=== PATIENT | female | born 1990 | race Caucasian/White ===

== ENCOUNTER 2017-10-16 10:51 | Emergency (ER) | payer OTHER, SELFPAY ==
[2017-10-16 10:52] VITALS: BP 117/71; PULSE 117; RESP 16; TEMP 37.4; O2SAT 98; BMI 21.9
[2017-10-16 11:57] LABS: Mucous, Urine 0 SEEN /hpf (<or=2+)
[2017-10-16] MEDS: 0.9% Normal Saline 1,000 ML 250 ML IV (12:00)
[2017-10-16] MEDS: Ketorolac 30 MG/ML Syringe IV (12:00)
[2017-10-16] MEDS: Ondansetron 4 MG/2 ML Vial IV (12:00)
[2017-10-16 12:01] LABS: Color, Urine Yellow (Yellow); Glucose, Dipstick Normal (Normal); Leukocyte Esterase-Dipstick 500 /ul (Negative); Nitrite-Dipstick Positive (Negative); Occult Blood-Urine 250 /ul (Negative); Protein-Dipstick 30 mg/dl (Negative); Urine Bilirubin Dipstick Negative (Negative); Urine Clarity Cloudy (Clear); Urine Urobilinogen Normal (Normal)
[2017-10-16 12:04] LABS: Ketone-Dipstick 150 mg/dl (Negative)
[2017-10-16 12:06] LABS: Red Blood Cells-Urine 0-5 SEEN /hpf (0-5); Squamous Epithelial Cells - UA 0-5 SEEN /hpf (5-10); White Blood Cells 50-100 SEEN /hpf (0-5)
[2017-10-16 12:07] LABS: Bacteria 2+ /hpf (None Seen)
[2017-10-16 12:17] LABS: Anion Gap 8 (5-15); BUN 7 mg/dL (7-18); BUN/Creat Ratio 11.7 RATIO (10-20); Calcium,Total 8.8 mg/dL (8.5-10.1); Chloride 104 mmol/L (98-107); EST Glomerular Filtration Rate 129 mL/min (>60); Est Glom Filt Rate - Afr Amer 157 mL/min (>60); Estimated Creatinine Clearance 123.77 ml/min; Glucose 80 mg/dL (74-106); Potassium 3.9 mmol/L (3.5-5.1); Sodium Level 139 mmol/L (136-145)
--- NOTE | 2017-10-16 13:19 | CT_ITS ---
STUDY: CT ABDOMEN AND PELVIS WITHOUT CONTRAST REASON FOR EXAM: Female, 27 years old. Right flank pain. UTI. RADIATION DOSAGE (If Supplied By Facility): CTDIvol = ( 6.19 ) mGy, DLP = ( 289.34 ) mGycm TECHNIQUE: Transaxial images were obtained from the dome of the diaphragm to the symphysis pubis without oral contrast, and without intravenous contrast. Sagittal and coronal images were reconstructed. Individualized dose optimization techniques were used for this CT. COMPARISON: Comparison is made with prior study dated December 08, 2015. FINDINGS: The visualized lung bases are unremarkable. The visualized portions of the heart are within normal limits. Normal liver. Normal gallbladder and extrahepatic biliary system. Normal spleen. Normal pancreas. Normal bilateral adrenal glands. There is a 4.5 mm calculus in the lower pole of the right kidney. Stable mild degree of right hydronephrosis and right hydroureter. No obstructive ureteral calculus is seen. This may be due to right ureteral vesicle reflux. Normal left kidney. Normal visualized stomach. Normal small intestine. Normal colon. The appendix is visualized and appears normal. Normal abdominal aorta. Normal inferior vena cava. Normal retroperitoneum. The urinary bladder is distended. Normal abdominal wall. Normal osseous structures. CT/Abdomen/Pelvis without Cont IMPRESSION: Stable mild right hydronephrosis and hydroureter without evidence of obstructive calculus. 4.5 mm nonobstructive calculus in the posterior lower pole of the right kidney. Electronically Signed: Nestor Whitfield MD at 14:20 EST Tel [phone], Service support ,
[2017-10-16 14:21] VITALS: BP 101/62; PULSE 105; RESP 16; O2SAT 95
--- NOTE | 2017-10-16 15:34 | ED.VISSUMM ---
- ER Visit Summary Date of Service: 10/16/17 Chief Complaint: Acute right flank and right lower quadrant abdominal pain with frequency History of Present Illness: The patient is a 27 F who states she had right flank pain on Sunday. She has recurrence of the pain. She denies fever, chills night sweats. She does complain of nausea without vomiting or diarrhea. She does have known history of renal calculi. She denies any ocular, visual auditory symptoms. She denies any cardiorespiratory symptoms. Last menses September 19. She states her menses was normal. She denies headache, paresthesia, anesthesia or motor weakness. She denies polyuria, polydipsia or polyphagia. She denies bruising easily. She denies any allergic type symptoms. Physical Examination: Patient appears uncomfortable. Heart rate is 117 otherwise vital signs are unremarkable. Temperature is 99.4. Head is atraumatic normocephalic. Pupils are equal round reactive. Extraocular muscles are intact. TMs are pearly white with landmarks noted. Nares patent with no drainage. Posterior pharynx without erythema or exudate. Uvula is midline. There is no dysphonia or dysphasia. Trachea is midline. There is no stridor with auscultation of the neck. Heart is regular without murmur, gallop or rub. S1 and S2 are normal. Lungs are clear to auscultation with good movement of air bilaterally. Abdomen minimal tenderness over the right kidney with deep palpation. Equivocal right CVA tenderness. No evidence of umbilical inguinal hernia. There are no skin lesions or rash noted. Neuro exam is nonfocal. Test Results: BMP is unremarkable. Urine is consistent with infection. Because she has history of known calculi has significant pain that is intermittent will obtain a CT to evaluate for obstruction. There is evidence of hydroureter nephrosis which is felt to be secondary to reflux. There is a 4.5 mm renal calculus. There is no obstructing ureteral calculus. Emergency Department Course and Treatment: AP and UA were obtained. Because the UA is positive for infection a CT was obtained. Urine culture was sent and she received Rocephin IV piggyback. Case was discussed Dr. Leong would like to see her in 1 week. He will follow-up culture results. Treatment Plan: Prescription for [place], Zofran, ciprofloxacin and urologic outpatient follow-up Disposition: Discharged in stable improved condition Impression: 1. Acute pyelonephritis, right 2. Right renal calculus 3. Hydroureter and process secondary to reflux This note was generated with [employer] dictation software. It may contain incorrect words, spelling, and punctuation that were not noted in review of the chart prior to signing ED Disposition - Plan for ED Patient: Disposition: Home or Assisted Living Chief Complaint: Flank Pain Instructions: ED Stone Renal Passed, ED Kidney Infec Female Prescriptions: Hydrocodone Bitart/Apap 5-325 [[place] 5MG-325MG] 1 tab PO Q6H PRN PRN 3 Days #10 tab PRN Reason: Pain Ondansetron [Zofran Odt] 8 mg PO Q8H PRN PRN #10 tab PRN Reason: Nausea/Vomiting Ciprofloxacin HCl 500 mg PO BID #20 tab Referrals: Andres Crockett [Primary Care Provider] - Hussain Wilson MD [STAFF PHYSICIAN] - 1 Week
--- NOTE | 2017-10-16 15:44 | ED.DCSUM_ITS ---
- ER Visit Summary Date of Service: 10/16/17 Chief Complaint: Acute right flank and right lower quadrant abdominal pain with frequency History of Present Illness: The patient is a 27 F who states she had right flank pain on Sunday. She has recurrence of the pain. She denies fever, chills night sweats. She does complain of nausea without vomiting or diarrhea. She does have known history of renal calculi. She denies any ocular, visual auditory symptoms. She denies any cardiorespiratory symptoms. Last menses September 19. She states her menses was normal. She denies headache, paresthesia , anesthesia or motor weakness. She denies polyuria, polydipsia or polyphagia. She denies bruising easily. She denies any allergic type symptoms. Physical Examination: Patient appears uncomfortable. Heart rate is 117 otherwise vital signs are unremarkable. Temperature is 99.4. Head is atraumatic normocephalic. Pupils are equal round reactive. Extraocular muscles are intact. TMs are pearly white with landmarks noted. Nares patent with no drainage. Posterior pharynx without erythema or exudate. Uvula is midline. There is no dysphonia or dysphasia. Trachea is midline. There is no stridor with auscultation of the neck. Heart is regular without murmur, gallop or rub. S1 and S2 are normal. Lungs are clear to auscultation with good movement of air bilaterally. Abdomen minimal tenderness over the right kidney with deep palpation. Equivocal right CVA tenderness. No evidence of umbilical inguinal hernia. There are no skin lesions or rash noted. Neuro exam is nonfocal. Test Results: BMP is unremarkable. Urine is consistent with infection. Because she has history of known calculi has significant pain that is intermittent will obtain a CT to evaluate for obstruction. There is evidence of hydroureter nephrosis which is felt to be secondary to reflux. There is a 4.5 mm renal calculus. There is no obstructing ureteral calculus. Emergency Department Course and Treatment: AP and UA were obtained. Because the UA is positive for infection a CT was obtained. Urine culture was sent and she received Rocephin IV piggyback. Case was discussed Dr. Leong would like to see her in 1 week. He will follow-up culture results. Treatment Plan: Prescription for [place], Zofran, ciprofloxacin and urologic outpatient follow-up Disposition: Discharged in stable improved condition Impression: 1. Acute pyelonephritis, right 2. Right renal calculus 3. Hydroureter and process secondary to reflux This note was generated with [employer] dictation software. It may contain incorrect words, spelling, and punctuation that were not noted in review of the chart prior to signing ED Disposition - Plan for ED Patient: Disposition: Home or Assisted Living Chief Complaint: Flank Pain Instructions: ED Stone Renal Passed, ED Kidney Infec Female Prescriptions: Hydrocodone Bitart/Apap 5-325 [[place] 5MG-325MG] 1 tab PO Q6H PRN PRN 3 Days #10 tab PRN Reason: Pain Ondansetron [Zofran Odt] 8 mg PO Q8H PRN PRN #10 tab PRN Reason: Nausea/Vomiting Ciprofloxacin HCl 500 mg PO BID #20 tab Referrals: Andres Crockett [Primary Care Provider] - Hussain Wilson MD [STAFF PHYSICIAN] - 1 Week
[2017-10-16 16:05] VITALS: BP 110/75; PULSE 112; RESP 18; O2SAT 100
[2017-10-16 16:11] VITALS: BP 105/68; PULSE 112; RESP 16; O2SAT 100
== END 2017-10-16 16:39 | disposition home or self-care (01) ==
PROVIDERS: Emergency Provider Emergency Medicine; Family Provider Family Medicine; PCP Family Medicine
DX: N10 Acute pyelonephritis (principal); N20.0 Calculus of kidney; N13.4 Hydroureter; K21.9 Gastro-esophageal reflux disease without esophagitis; Z87.442 Personal history of urinary calculi
CPT/HCPCS: 74176; 80048; 81001; 87077; 87086; 87088; 87186; 96365; 96374; 96375; 96376; 99283; J7030; A4216; J2405

== ENCOUNTER 2017-10-24 08:48 | Day surgery (SDC) | payer OTHER, SELFPAY ==
--- NOTE | 2017-10-24 | GASB_PTH ---
PATIENT: SOPHY MIJARES LOC: EN U#:[id number] AGE/SX: 27/F ROOM: RE10/24/[address]: Dr. Emmy Green MD : 1990 BED: DIS: 10/24/2017 SPEC #: [id number] RECD: 10/24/17 14:26 STATUS: ROSELYN RICHARD #: [id number] CRISTOFER: 10/24/17 00:[address]: Emmy Green DEPT: SURGICAL PATHOLOGY RECD BY: Lex Bangura ENTERED: 10/24/17 14:27 SP TYPE: Gastric Bx OTHR DR: Dr. Andres Crockett DO Tissues: A - Gastric mucous membrane B - Descending colon C - Sigmoid colon biopsy D - Rectum, NOS E - Rectum, NOS Procedures: Surgery Specimen Level IV HEADER OPERATION: EGD with biopsy, colonoscopy with biopsy and polypectomy PRE-OP DIAGNOSIS: Tarry stools and diarrhea TISSUE SUBMITTED: A ? Antrum biopsy, H. pylori and path, B ? Descending colon biopsy, C ? Sigmoid biopsy, D ? Rectum polyp, E ? Rectum biopsies MICROSCOPIC DIAGNOSIS A. Antrum, biopsy: Mild gastritis. B. Descending colon, biopsy: Fragment of colonic mucosa, no pathologic diagnosis. C. Sigmoid, biopsy: Fragments of colonic mucosa, no pathologic diagnosis. D. Rectum polyp, polypectomy: Tubular adenoma. E. Rectum, biopsy: Hyperplastic polyp (one fragment). Additional fragments of colonic mucosa, no pathologic diagnosis. SJ:hetal 10/25/17 COMMENT A. The results of immunohistochemistry for Helicobacter pylori will be reported separately ([id number]). MICROSCOPIC DESCRIPTION Slides are reviewed. A. The specimen shows fragments of gastric mucosa with chronic inflammatory cell infiltrates in the lamina propria consisting of lymphocytes and plasma cells, consistent with mild chronic gastritis. GROSS DESCRIPTION A - Received in fixative is one container labeled with the patient's name and designated antral biopsy, H. pylori and path. The specimen consists of one irregular fragment of light chun soft tissue that measures 0.3 x 0.3 x 0.1 cm. The specimen is totally submitted in one cassette. B - Received in fixative is one container labeled with the patient's name and designated descending colon biopsy. The specimen consists of one irregular fragment of light chun soft tissue that measures 0.5 x 0.3 x 0.1 cm. The specimen is totally submitted in one cassette. C - Received in fixative is one container labeled with the patient's name and designated sigmoid biopsy. The specimen consists of multiple irregular fragments of light chun soft tissue that in aggregate measure 1 x 0.3 x 0.1 cm. The specimen is totally submitted in one cassette. D - Received in fixative is one container labeled with the patient's name and designated rectum polyp biopsy. The specimen consists of a piece of chun-pink polyp measuring 1 x 1 x 0.4 cm. The entire specimen is submitted in one cassette. E - Received in fixative is one container labeled with the patient's name and designated rectum biopsy. The specimen consists of multiple irregular fragments of light chun soft tissue that in aggregate measure 1 x 0.5 x 0.1 cm. The specimen is totally submitted in one cassette. / GREY:hetal 10/23/17 TC:1 CPT: 55035 x5
--- NOTE | 2017-10-24 | IMM_PTH ---
PATIENT: SOPHY MIJARES LOC: EN U#:[id number] AGE/SX: 27/F ROOM: RE10/24/[address]: Dr. Emmy Green MD : 1990 BED: DIS: 10/24/2017 SPEC #: [id number] RECD: 10/25/17 11:24 STATUS: ROSELYN REKiesha #: [id number] CRISTOFER: 10/24/17 00:[address]: Emmy Green DEPT: IMMUNOHISTOCHEMISTRY RECD BY: Romy Christianson ENTERED: 10/25/17 11:25 SP TYPE: IMMUNO OTHR DR: Dr. Andres Crockett DO Tissues: A - Stomach, NOS Procedures: H Pylori (initial) PHYSICIAN & INSTITUTION [place] [address] SPECIMEN INFORMATION: Tissue Source: A ? Antrum biopsy Clinical Info: Tarry stools and diarrhea Specimen Number: [id number] CPT code: 65618 METHODOLOGY: Deparaffinized sections of prefer/formalin-fixed tissue or PAP/DQ stained slides are incubated with monoclonal/polyclonal antibodies/oligonucleotide probes. Localization is made via biotin free immunoperoxidase method. Appropriate controls are performed and reacted as expected. Results on target cell population are indicated in the following table: RESULTS: ANTIBODY / CLONE RESULT Block A H Pylori (polyclonal) negative These tests were developed and their performance characteristics determined by [facility]. They may not have been cleared or approved by the [place]. Food and Drug Administration. The FDA has determined that such clearance or approval is not necessary. INTERPRETATION: A. Antrum biopsy: Negative for Helicobacter pylori organisms. SJ:hetal 10/26/17
[2017-10-24 09:03] VITALS: BP 106/75; PULSE 80; RESP 16; TEMP 36.8; O2SAT 100; BMI 21.5
[2017-10-24 09:22] LABS: Internal QC Validated? YES +Cl - CLEAR BKGD; Pregnancy, Urine Negative Negative
[2017-10-24 10:54] VITALS: BP 106/75; BP 94/61; PULSE 87; RESP 16; TEMP 36.2; O2SAT 100
[2017-10-24 11:00] VITALS: BP 106/75; BP 90/63; PULSE 83; RESP 16; O2SAT 100
[2017-10-24 11:05] VITALS: BP 106/75; BP 94/74; PULSE 76; RESP 16; O2SAT 100
[2017-10-24 11:10] VITALS: BP 106/75; BP 99/77; PULSE 68; RESP 16; TEMP 36.2; O2SAT 100
[2017-10-24 11:48] VITALS: BP 106/75
--- NOTE | 2017-10-24 11:53 | OP.PCM_ITS ---
Report of Operation Date of Procedure: 10/24/17 Pre-Operative Diagnosis: Tarry stools, upper abdominal pain, diarrhea Post-Operative Diagnosis: Rectal polyp, diarrhea, normal stomach Surgery/Procedure Performed:: EGD with biopsy, colonoscopy with saline lift and snare polypectomy Type of Anesthesia:: MAC Anesthesiologist: Jorge Leong Specimen's removed: 1. Antral biopsy 2. Descending colon random biopsy, 3. Sigmoid colon Random biopsy, 4. Rectal polyp, 5. Rectal random biopsy Estimated Blood Loss (mL): Minimal Description of Procedure: Procedure: EGD with biopsy After obtaining informed consent, the endoscope was passed under direct visualization. Throughout the procedure, patient's blood pressure, pulse, oxygen saturations were monitored continuously by anesthesia. The endoscope was introduced through the mouth and advanced to the 2nd part of the duodenum. The upper GI endoscopy was accomplished without difficulty. Patient tolerated procedure well. Findings: Stomach appeared grossly normal gastric antrum biopsy was taken for H. pylori with cold forceps cold forceps. Biopsies were taken with cold biopsy for histology. Estimated blood loss was minimal. The duodenum was normal. Impression: 1. Grossly normal stomach. Biopsied for H. pylori 2. Normal examined duodenum Recommendations: Await biopsy Procedure: Colonoscopy with saline lift and snare polypectomy After reviewing the risks benefits, the patient was deemed in satisfactory condition to undergo procedure. After obtaining informed consent, the scope was passed under direct visualization. Throughout the procedure, the patient's blood pressure pulse and position saturations were monitored continuously anesthesia. The colonoscope was introduced through the anus and advanced to the cecum, identified by the appendiceal orifice, IC valve and transillumination. The colonoscopy was performed without difficulty. The patient tolerated procedure well. Quality of bowel prep was good. Findings: The perianal and digital rectal exam were relatively small residual tissue at 12 :00 and some small internal hemorrhoids. Random biopsies were taken of the descending/sigmoid/rectum due to the history of chronic diarrhea. Rectal polyp was seen about 10 cm from the anus saline left was done with 1 cc of saline and 2 locations near the base. Snare polypectomy removed the polyp completely. Otherwise the colon (entire examined portion) appeared normal. Retroflexed view of the distal rectum and anal verge showed small internal hemorrhoids Impression: 1. Rectal polyp removed with snare polypectomy 2. Grade 1 internal hemorrhoids 3. Random biopsies taken for history of diarrhea Recommendations: Await biopsies Repeat colonoscopy in 2-3 years for screening purposes depending on biopsy results - Complications none
== END 2017-10-24 11:49 | disposition home or self-care (01) ==
LOC: EN 08:49 → AC 08:51
PROVIDERS: Anesthesiology; Family Provider Family Medicine; PCP Family Medicine; Visit Provider Surgery
PROC: 0DJD8ZZ Inspection of Lower Intestinal Tract, Via Natural or Artificial Opening Endoscopic (ICD-10-PCS; CPT 45378; principal; 2017-10-24 09:55)
DX: K29.70 Gastritis, unspecified, without bleeding (principal); D12.8 Benign neoplasm of rectum; K62.1 Rectal polyp; K64.8 Other hemorrhoids; I49.9 Cardiac arrhythmia, unspecified; G43.909 Migraine, unspecified, not intractable, without status migrainosus; M62.830 Muscle spasm of back; K58.9 Irritable bowel syndrome, unspecified; F41.9 Anxiety disorder, unspecified; F32.9 Major depressive disorder, single episode, unspecified; Z87.448 Personal history of other diseases of urinary system; Z79.899 Other long term (current) drug therapy
CPT/HCPCS: 43239; 45380; 45385; 81025; 88305; 88342; J7120; A4216

== ENCOUNTER → 2017-11-05 14:53 | Outpatient (CLI) | payer OTHER, SELFPAY ==
--- NOTE | 2017-11-05 14:56 | RAD_ITS ---
STUDY: VOIDING CYSTOURETHROGRAM REASON FOR EXAM: Female, 27 years old. UTIs FLUOROSCOPY TIME (if supplied): (3) minutes, 2 fluoroscopic images obtained TECHNIQUE: Patient was catheterized and Cysto-Conray contrast instilled into the bladder via gravity. COMPARISON: None. FINDINGS: The bladder distended normally without evidence of filling defect. There was no reflux of contrast into the distal ureters upon bladder filling. However, patient was unable to void on the fluoroscopic table. She voided in the commode, and return in rapid fashion to the fluoroscopic table for post void fluoroscopy and imaging. There was complete emptying of the bladder and there was no evidence of reflux of contrast into the ureters. RAD/Voiding Urethrocystography IMPRESSION: No abnormal findings noted. Electronically Signed: Miko Posada MD at 8:06 EDT , Service support ,
== END ==
PROVIDERS: Family Provider Family Medicine; PCP Family Medicine; Visit Provider Nurse Practitioner Adult Health
DX: N13.30 Unspecified hydronephrosis (principal)
CPT/HCPCS: 51600; 51702; 74430; 74455; Q9965

== ENCOUNTER → 2018-09-02 16:22 | Outpatient (CLI) | payer OTHER, SELFPAY ==
--- NOTE | 2018-09-02 16:37 | US_ITS ---
HISTORY: HYDRONEPHROSIS renal calculi TECHNIQUE: Peterson scale and color doppler sagittal and transverse images were obtained of the kidneys. COMPARISON: CT abdomen and pelvis 10/16/2017 FINDINGS: Both kidneys are normal in size with measurements approximately as follows: Right kidney: 10 x 4.7 x 3.9 cm Left kidney 9.4 x 4.2 x 3.9 cm The right kidney shows a 3 mm echogenic stone at the upper pole and a 4 mm stone at the lower pole. No obvious calculi at the left kidney. No hydronephrosis or suspicious renal lesion. Renal cortical thickness is preserved. No ascites. Limited survey of the pelvis was performed with attention to urinary bladder. Estimated bladder volume is 81 cc. The bladder shows no mural thickening or intraluminal stone. No free pelvic fluid. US/Kidney and Bladder IMPRESSION: 1. Right renal small nonobstructing stones 2. 2. No hydronephrosis identified. 3. Normal urinary bladder. at 0114 Reported and signed by: Joey Drake MD Electronically Signed: Joey Drake, at 1:13 EST Tel , Service support ,
--- OUTSIDE RECORDS SUMMARY | 2018-11-05 04:18 | XMS RPT_ITS ---
:1990 Author Organization OHIP Care Team Providers Name Role Phone JOSI HUGO (COMMERCIAL RELATIONSHIP MANAGER) Attending Unavailable Yojana Ferrell Attending Unavailable GhassanDeweyca M Referring Unavailable PETRILLA, MINERVA Primary Care Unavailable Robotham, Emmy Attending Unavailable PETRILLA, MINERVA Referring Unavailable PETRILLA, MINERVA Primary Care Unavailable Rodrigue Pineda Attending Unavailable PETRILLA, MINERVA Referring Unavailable PETRILLA, MINERVA Primary Care Unavailable PETRILLA, MINERVA Primary Care Unavailable Cardenas, Jm Attending Unavailable Robotham, Emmy Attending Unavailable Robotham, Emmy Referring Unavailable PETRILLA, MINERVA Primary Care Unavailable Robotham, Emmy Attending Unavailable Robotham, Emmy Referring Unavailable PETRILLA, MINERVA Primary Care Unavailable Robotham, Emmy Consulting Unavailable GhassanDolores guzmanecca M Attending Unavailable Ghassan, Yojana M Referring Unavailable PETRILLA, MINERVA Primary Care Unavailable PROBLEMS PROBLEMS DATE TYPE CONDITION / CODE ATTENDING STATUS SOURCE 11/05/2017 Unknown N13.30 - Unspecified Yojana Ferrell Active [facility] hydronephrosis / [facility] N13.30(ICD-10) Hospital Repository 10/16/2017 Unknown N10 - Acute Cardenas, Jm Active [place] pyelonephritis / Community N10(ICD-10) Hospital Repository 10/16/2017 Unknown N20.0 - Calculus of Cardenas, Jm Active [facility] kidney / [facility] N20.0(ICD-10) Hospital Repository 09/26/2017 Unknown K92.1 - Melena / Robotham, Active [facility] K92.1(ICD-10) Emmy Counts Include [facility] B[facility] At [facility] Hospital Repository 09/26/2017 Unknown R19.7 - Diarrhea, Robotham, Active [place] unspecified / Emmy Community R19.7(ICD-10) Hospital Repository 09/21/2017 Active Unknown / JOSI HUGO Active [facility]ang UNK(Unknown) (COMMERCIAL RELATIONSHIP MANAGER) Clinic [facility] [place] Repository PROCEDURES PROCEDURES No Procedure Records FoundRESULTS RESULTS KIDNEY AND BLADDER Observed: 09/02/2018 Status: F Source: [place] 4:38 PM [facility] HOSPITAL REPOSITORY [facility] Imaging Services [address] [place] [address] Kidney and Bladder MR#: [id number] Acct: [id number] Name: KELLIE MIJARES Rep #: [id number] : 1990 F 28 From: Joey Drake MD PCP: Minerva Crockett DO Status: REG CLI Study: Kidney and Bladder Date of Exam: 09/02/18 Exam# [id number] Ordering Dr: Yojana Ferrell SYSTEMS LEAD-C HISTORY: HYDRONEPHROSIS renal calculi TECHNIQUE: Peterson scale and color doppler sagittal and transverse images were obtained of the kidneys. COMPARISON: CT abdomen and pelvis 10/16/2017 FINDINGS: Both kidneys are normal in size with measurements approximately as follows: Right kidney: 10 x 4.7 x 3.9 cm Left kidney 9.4 x 4.2 x 3.9 cm The right kidney shows a 3 mm echogenic stone at the upper pole and a 4 mm stone at the lower pole. No obvious calculi at the left kidney. No hydronephrosis or suspicious renal lesion. Renal cortical thickness is preserved. No ascites. Limited survey of the pelvis was performed with attention to urinary bladder. Estimated bladder volume is 81 cc. The bladder shows no mural thickening or intraluminal stone. No free pelvic fluid. US/Kidney and Bladder IMPRESSION: 1. Right renal small nonobstructing stones 2. 2. No hydronephrosis identified. 3. Normal urinary bladder. at 0114 Reported and signed by: Joey Drake MD Electronically Signed: Joey Drake, at 1:13 EST Tel , Service support , CC: Minerva Crockett DO; Yojana Ferrell NP Gambling Floor Supervisor: Signed Observed: 11/19/2017 Status: F Source: [place] URINE CULTURE 7:29 PM [facility] REPOSITORY Sp. Request/Comment: - Specimen received in preservative Culture Result - 10,000 - <50,000 CFU/ml Lactose negative gram negative bacilli --> ABNORMAL ALERT Insignificant colony count. No further workup. --> ABNORMAL ALERT <10,000 CFU/ml Normal urogenital jayashree Performed By: #### URCUL #### [facility] [address] [place], [place] [address] PROGRESS Observed: 11/18/2017 Status: COMPLETED Source: [place] 4:09 PM [facility] REPOSITORY HNO ID: [id number] Author: Solo Grider (Manager [employer]) Goucher Service: (none) Author Type: Nurse Practitioner Type: Progress Notes Filed: 11/18/2017 4:30 PM Note Text: Subjective HPI HPI Kellie Arroyo is a 27 year old female who presents today for CC of dysuria, frequency, nocturia This started 3 days ago she has tried increasing her fluids. She reports known kidney stones There is no problem list on file for this patient. BP 111/81 Pulse 106 Temp 37 ?C (98.6 ?F) (Tympanic) Resp 16 Wt 57.9 kg (127 lb 9.6 oz) LMP 10/25/2017 (Approximate) BMI 21.56 kg/m2 ALLERGIES Allergen Reactions - Wellbutrin [Bupropi* Other: See Comments seizure Current Outpatient Prescriptions: imipramine HCl (TOFRANIL) 50 mg tablet Take 50 mg by mouth daily at bedtime. Disp: Rfl: ibuprofen (MOTRIN) 800 mg tablet Take 1 tablet by mouth three times daily as needed for Pain. Start 2 days before period and take for 5 days total. TAKE WITH FOOD. Disp: 30 tablet Rfl: 6 fluconazole (DIFLUCAN) 150 mg tablet Take one pill today, Sunday, and . Disp: 3 tablet Rfl: 0 No current facility-administered medications for this visit. Review of Systems Constitutional: Negative for chills, diaphoresis, fever and malaise/fatigue. Gastrointestinal: Negative for abdominal pain, diarrhea, nausea and vomiting. Genitourinary: Positive for dysuria, frequency and urgency. Negative for flank pain and hematuria. Musculoskeletal: Negative for joint pain and myalgias. Neurological: Negative for weakness. Objective Physical Exam Constitutional: She is oriented to person, place, and time and well-developed, well-nourished, and in no distress. HENT: Head: Normocephalic and atraumatic. Eyes: Conjunctivae and EOM are normal. Pupils are equal, round, and reactive to light. Neck: Normal range of motion. Neck supple. Cardiovascular: Normal rate, regular rhythm and normal heart sounds. Pulmonary/Chest: Effort normal and breath sounds normal. No respiratory distress. Abdominal: Soft. Normal appearance and bowel sounds are normal. There is tenderness in the suprapubic area. There is CVA tenderness (right). Neurological: She is alert and oriented to person, place, and time. Gait normal. Skin: Skin is warm and dry. Psychiatric: Affect normal. Nursing note and vitals reviewed. ASSESSMENT/PLAN: 1. Dysuria - ICD9: 788.1, ICD10: R30.0 (primary diagnosis) acute - UA positive for cydney esterase and hematuria - Patient education for prevention given - UA DIP B/O - URINE CULTURE 2. Acute cystitis with hematuria - ICD9: 595.0, ICD10: N30.01 - URINE CULTURE, we will call you in 3 days with your results - increase your water intake, limit caffeine and alcohol, they are irritating to the bladder - f/u with PCP if symptoms should persist - SULFAMETHOXAZOLE 800 MG-TRIMETHOPRIM 160 MG TABLET Solo Flowers APRN.CNP CNOV Observed: 11/18/2017 Status: COMPLETED Source: [place] 4:00 PM [facility] REPOSITORY Office Visit ([facility]ALK[facility]) KELLIE ARROYO ([id number]) 1990 F Date Time Provider Department 11/18/17 4:00 PM SOLO FLOWERS (TEZ) [facility] During your visit today, we recorded the following information about you: Temperature Pulse Respiration Blood pressure 98.6 degrees 106/minute 16/minute 111/81 Weight Last Period 57.9 kg 10/25/17 Solo Flowers APRN.CNP 11/18/2017 4:30 PM Signed Subjective HPI HPI Kellie Arroyo is a 27 year old female who presents today for CC of dysuria, frequency, nocturia This started 3 days ago she has tried increasing her fluids. She reports known kidney stones There is no problem list on file for this patient. BP 111/81 Pulse 106 Temp 37 ?C (98.6 ?F) (Tympanic) Resp 16 Wt 57.9 kg (127 lb 9.6 oz) LMP 10/25/2017 (Approximate) BMI 21.56 kg/m2 ALLERGIES Allergen Reactions - Wellbutrin [Bupropi* Other: See Comments seizure Current Outpatient Prescriptions: imipramine HCl (TOFRANIL) 50 mg tablet Take 50 mg by mouth daily at bedtime. Disp: Rfl: ibuprofen (MOTRIN) 800 mg tablet Take 1 tablet by mouth three times daily as needed for Pain. Start 2 days before period and take for 5 days total. TAKE WITH FOOD. Disp: 30 tablet Rfl: 6 fluconazole (DIFLUCAN) 150 mg tablet Take one pill today, Sunday, and . Disp: 3 tablet Rfl: 0 No current facility-administered medications for this visit. Review of Systems Constitutional: Negative for chills, diaphoresis, fever and malaise/fatigue. Gastrointestinal: Negative for abdominal pain, diarrhea, nausea and vomiting. Genitourinary: Positive for dysuria, frequency and urgency. Negative for flank pain and hematuria. Musculoskeletal: Negative for joint pain and myalgias. Neurological: Negative for weakness. Objective Physical Exam Constitutional: She is oriented to person, place, and time and well-developed, well-nourished, and in no distress. HENT: Head: Normocephalic and atraumatic. Eyes: Conjunctivae and EOM are normal. Pupils are equal, round, and reactive to light. Neck: Normal range of motion. Neck supple. Cardiovascular: Normal rate, regular rhythm and normal heart sounds. Pulmonary/Chest: Effort normal and breath sounds normal. No respiratory distress. Abdominal: Soft. Normal appearance and bowel sounds are normal. There is tenderness in the suprapubic area. There is CVA tenderness (right). Neurological: She is alert and oriented to person, place, and time. Gait normal. Skin: Skin is warm and dry. Psychiatric: Affect normal. Nursing note and vitals reviewed. ASSESSMENT/PLAN: 1. Dysuria - ICD9: 788.1, ICD10: R30.0 (primary diagnosis) acute - UA positive for cydney esterase and hematuria - Patient education for prevention given - UA DIP B/O - URINE CULTURE 2. Acute cystitis with hematuria - ICD9: 595.0, ICD10: N30.01 - URINE CULTURE, we will call you in 3 days with your results - increase your water intake, limit caffeine and alcohol, they are irritating to the bladder - f/u with PCP if symptoms should persist - SULFAMETHOXAZOLE 800 MG-TRIMETHOPRIM 160 MG TABLET MEENA Lau APRN.CNP 11/18/2017 4:28 PM Signed ASSESSMENT/PLAN: 1. Dysuria - ICD9: 788.1, ICD10: R30.0 (primary diagnosis) acute - UA positive for cydney esterase and hematuria - Patient education for prevention given - UA DIP B/O - URINE CULTURE 2. Acute cystitis with hematuria - ICD9: 595.0, ICD10: N30.01 - URINE CULTURE, we will call you in 3 days with your results - increase your water intake, limit caffeine and alcohol, they are irritating to the bladder - f/u with PCP if symptoms should persist - SULFAMETHOXAZOLE 800 MG-TRIMETHOPRIM 160 MG TABLET Referring Provider: SELF [200] Allergies As of Date: 11/18/2017 Noted Allergy Reaction WELLBUTRIN (BUPROPION HCL) 09/21/2017 14 - Other: See Comments Comments: seizure Date Reviewed: 11/18/2017 Reviewed by: Maria Teresa Muro Ma - Fully Assessed Reason for Visit: UTI [116] Cmt: x3 days Primary Visit Diagnosis:Dysuria [R30.0] Other Visit Diagnosis:Acute cystitis with hematuria [N30.01] Order(s):UA DIP B/O [3642431] Order #: [id number] URINE CULTURE [SQURCUL] Order #: [id number] sulfamethoxazole-trimethoprim (BACTRIM DS) 800-160 mg per tabletTake 1 tablet by mouth twice daily for 7 days.Disp: 14 tabletRfl: 0 ibuprofen (MOTRIN) 800 mg tabletTake 1 tablet by mouth every 8 hours as needed for Pain.Disp: 30 tabletRfl: 0 Prescriptions as of 11/18/2017 Sig: IMIPRAMINE 50 MG TABLET Take 50 mg by mouth daily at * SULFAMETHOXAZOLE 800 MG-TRIME* Take 1 tablet by mouth twice * IBUPROFEN 800 MG TABLET Take 1 tablet by mouth every * FLUCONAZOLE 150 MG TABLET Take one pill today, Sunday, * Medication notes this encounter FLUCONAZOLE 150 MG TABLET >> Maria Teresa Muro Ma 11/18/2017 4:07 PM >> MARIA TERESA MURO MA Nov 18, 2017 4:07 PM completed Problem List As Of Date: 11/18/2017 (None) Other instructions from your clinician: ASSESSMENT/PLAN: 1. Dysuria - ICD9: 788.1, ICD10: R30.0 (primary diagnosis) acute - UA positive for cydney esterase and hematuria - Patient education for prevention given - UA DIP B/O - URINE CULTURE 2. Acute cystitis with hematuria - ICD9: 595.0, ICD10: N30.01 - URINE CULTURE, we will call you in 3 days with your results - increase your water intake, limit caffeine and alcohol, they are irritating to the bladder - f/u with PCP if symptoms should persist - SULFAMETHOXAZOLE 800 MG-TRIMETHOPRIM 160 MG TABLET Prescriptions ordered this encounter Disp Refills Start End SULFAMETHOXAZOLE 800 MG-TRIMETHOPRIM* 14 t* 0 11/18/2017 11/25/2017 Route: ORAL Sig: Take 1 tablet by mouth twice daily for 7 days. IBUPROFEN 800 MG TABLET 30 t* 0 11/18/2017 12/18/2017 Route: ORAL Sig: Take 1 tablet by mouth every 8 hours as needed for Pain. Medications Discontinued During This Encounter ibuprofen (MOTRIN) 800 mg tablet 30 t* 6 07/23/2013 11/18/2017 Route: ORAL Sig: Take 1 tablet by mouth three times daily as needed for Pain. Start 2 days before period and take for 5 days total. TAKE WITH FOOD. Disc: Course of therapy completed Encounter Status:Closed by SOLO FLOWERS on 11/18/17 VOIDING URETHROCYSTOGRAPHY Observed: 11/05/2017 Status: F Source: [place] 2:56 PM [facility] REPOSITORY [facility] Imaging Services [address] [place] [address] Voiding Urethrocystography MR#: [id number] Acct: [id number] Name: KELLIE ARROYO Rep #: [id number] : 1990 F 27 From: Colton Posada MD PCP: MINERVA CROCKETT Status: REG CLI Study: Voiding Urethrocystography Date of Exam: 11/05/17 Exam# [id number] Ordering Dr: Yojana Ferrell SYSTEMS LEAD-C STUDY: VOIDING CYSTOURETHROGRAM REASON FOR EXAM: Female, 27 years old. UTIs FLUOROSCOPY TIME (if supplied): (3) minutes, 2 fluoroscopic images obtained TECHNIQUE: Patient was catheterized and Cysto-Conray contrast instilled into the bladder via gravity. COMPARISON: None. FINDINGS: The bladder distended normally without evidence of filling defect. There was no reflux of contrast into the distal ureters upon bladder filling. However, patient was unable to void on the fluoroscopic table. She voided in the commode, and return in rapid fashion to the fluoroscopic table for post void fluoroscopy and imaging. There was complete emptying of the bladder and there was no evidence of reflux of contrast into the ureters. RAD/Voiding Urethrocystography IMPRESSION: No abnormal findings noted. Electronically Signed: Miko Posada MD at 8:06 EDT , Service support , CC: MINERVA CROCKETT; Yojana Ferrell NP Gambling Floor Supervisor: Signed OPERATIVE REPORT Observed: 10/24/2017 Status: F Source: [place] 11:53 AM [facility] REPOSITORY [facility] Medical Records Department [address] [place] [address] Operative Report 10/24/17 1147 MR#: [id number] Acct: [id number] Name: KELLIE ARROYO Rep #: [id number] : 1990 27 From: Emmy Green MD PCP: MINERVA CROCKETT Status: [facility] Y Location: EN Report of Operation Date of Procedure: 10/24/17 Pre-Operative Diagnosis: Tarry stools, upper abdominal pain, diarrhea Post-Operative Diagnosis: Rectal polyp, diarrhea, normal stomach Surgery/Procedure Performed:: EGD with biopsy, colonoscopy with saline lift and snare polypectomy Type of Anesthesia:: MAC Anesthesiologist: Jorge Leong Specimen's removed: 1. Antral biopsy 2. Descending colon random biopsy, 3. Sigmoid colon Random biopsy, 4. Rectal polyp, 5. Rectal random biopsy Estimated Blood Loss (mL): Minimal Description of Procedure: Procedure: EGD with biopsy After obtaining informed consent, the endoscope was passed under direct visualization. Throughout the procedure, patient's blood pressure, pulse, oxygen saturations were monitored continuously by anesthesia. The endoscope was introduced through the mouth and advanced to the 2nd part of the duodenum. The upper GI endoscopy was accomplished without difficulty. Patient tolerated procedure well. Findings: Stomach appeared grossly normal gastric antrum biopsy was taken for H. pylori with cold forceps cold forceps. Biopsies were taken with cold biopsy for histology. Estimated blood loss was minimal. The duodenum was normal. Impression: 1. Grossly normal stomach. Biopsied for H. pylori 2. Normal examined duodenum Recommendations: Await biopsy Procedure: Colonoscopy with saline lift and snare polypectomy After reviewing the risks benefits, the patient was deemed in satisfactory condition to undergo procedure. After obtaining informed consent, the scope was passed under direct visualization. Throughout the procedure, the patient's blood pressure pulse and position saturations were monitored continuously anesthesia. The colonoscope was introduced through the anus and advanced to the cecum, identified by the appendiceal orifice, IC valve and transillumination. The colonoscopy was performed without difficulty. The patient tolerated procedure well. Quality of bowel prep was good. Findings: The perianal and digital rectal exam were relatively small residual tissue at 12:00 and some small internal hemorrhoids. Random biopsies were taken of the descending/sigmoid/rectum due to the history of chronic diarrhea. Rectal polyp was seen about 10 cm from the anus saline left was done with 1 cc of saline and 2 locations near the base. Snare polypectomy removed the polyp completely. Otherwise the colon (entire examined portion) appeared normal. Retroflexed view of the distal rectum and anal verge showed small internal hemorrhoids Impression: 1. Rectal polyp removed with snare polypectomy 2. Grade 1 internal hemorrhoids 3. Random biopsies taken for history of diarrhea Recommendations: Await biopsies Repeat colonoscopy in 2-3 years for screening purposes depending on biopsy results - Complications none 10/24/17 1153 <Electronically signed by Emmy Green MD> Date Emmy Green MD CC: MINERVA CROCKETT; Emmy Green MD Signed ,URINE Collected: 10/24/2017 Status: F Source: [place] 8:55 AM [facility] REPOSITORY TYPE CODE TESTS RESULT OUT OF REFERENCE UNITS RANGE LAB L400.8000 Negative Normal HCGUQUAL Negative Result Comment: Very dilute urine specimens, as indicated by a low specific gravity, may not contain telesales representative levels of hCG. If is still suspected, a first morning urine specimen should be collected 48 hours later and tested. Performed By: #### [id number] #### [facility] [address] [place], [address] GASTRIC BIOPSY Observed: 10/24/2017 Status: F Source: [place] 12:00 AM [facility] REPOSITORY Patient: KELLIE ARROYO : 1990 (27/) Acct Num: [id number] Phys: Peter PARRISH,Emmy Unit Num: [id number] Loc: EN Specimen: [id number] Received: 10/24/171425 Spec Type: Gastric Bx TISSUES TISSUES: A. Gastric mucous membrane B. Descending colon C. Sigmoid colon biopsy D. Rectum, NOS E. Rectum, NOS COMMENT A. The results of immunohistochemistry for Helicobacter pylori will be reported separately ([id number]). GROSS DESCRIPTION A - Received in fixative is one container labeled with the patient's name and designated antral biopsy, H. pylori and path. The specimen consists of one irregular fragment of light chun soft tissue that measures 0.3 x 0.3 x 0.1 cm. The specimen is totally submitted in one cassette. B - Received in fixative is one container labeled with the patient's name and designated descending colon biopsy. The specimen consists of one irregular fragment of light chun soft tissue that measures 0.5 x 0.3 x 0.1 cm. The specimen is totally submitted in one cassette. C - Received in fixative is one container labeled with the patient's name and designated sigmoid biopsy. The specimen consists of multiple irregular fragments of light chun soft tissue that in aggregate measure 1 x 0.3 x 0.1 cm. The specimen is totally submitted in one cassette. D - Received in fixative is one container labeled with the patient's name and designated rectum polyp biopsy. The specimen consists of a piece of chun-pink polyp measuring 1 x 1 x 0.4 cm. The entire specimen is submitted in one cassette. E - Received in fixative is one container labeled with the patient's name and designated rectum biopsy. The specimen consists of multiple irregular fragments of light chun soft tissue that in aggregate measure 1 x 0.5 x 0.1 cm. The specimen is totally submitted in one cassette. / SJ:hetal 10/23/17 TC:1 CPT: 48962 x5 HEADER OPERATION: EGD with biopsy, colonoscopy with biopsy and polypectomy PRE-OP DIAGNOSIS: Tarry stools and diarrhea TISSUE SUBMITTED: A Antrum biopsy, H. pylori and path, B Descending colon biopsy, C Sigmoid biopsy, D Rectum polyp, E Rectum biopsies MICROSCOPIC DESCRIPTION Slides are reviewed. A. The specimen shows fragments of gastric mucosa with chronic inflammatory cell infiltrates in the lamina propria consisting of lymphocytes and plasma cells, consistent with mild chronic gastritis. MICROSCOPIC DIAGNOSIS A. Antrum, biopsy: Mild gastritis. B. Descending colon, biopsy: Fragment of colonic mucosa, no pathologic diagnosis. C. Sigmoid, biopsy: Fragments of colonic mucosa, no pathologic diagnosis. D. Rectum polyp, polypectomy: Tubular adenoma. E. Rectum, biopsy: Hyperplastic polyp (one fragment). Additional fragments of colonic mucosa, no pathologic diagnosis. SJ:hetal 10/25/17 Signed William Estevez 10/25/17 <signature on file> Performed By: #### PGASB #### [facility] [address] [place], [place] [address]ana. [place], [address] IMMUNOHISTOCHEMISTRY Observed: 10/24/2017 Status: F Source: [place] 12:00 AM [facility] REPOSITORY Patient: KELLIE ARROYO : 1990 (27/F) Acct Num: [id number] Phys: Emmy Green MD Unit Num: [id number] Loc: EN Specimen: [id number] Received: 10/25/17 - 1124 Spec Type: IMMUNO TISSUES TISSUES: A. Stomach, NOS SPECIMEN INFORMATION: Tissue Source: A Antrum biopsy Clinical Info: Tarry stools and diarrhea Specimen Number: [id number] CPT code: 75401 METHODOLOGY: Deparaffinized sections of prefer/formalin-fixed tissue or PAP/DQ stained slides are incubated with monoclonal/polyclonal antibodies/oligonucleotide probes. Localization is made via biotin free immunoperoxidase method. Appropriate controls are performed and reacted as expected. Results on target cell population are indicated in the following table: RESULTS: ANTIBODY / CLONE RESULT Block A H Pylori (polyclonal) negative These tests were developed and their performance characteristics determined by [facility]. They may not have been cleared or approved by the U.S. Food and Drug Administration. The FDA has determined that such clearance or approval is not necessary. INTERPRETATION: A. Antrum biopsy: Negative for Helicobacter pylori organisms. SJ:hetal 10/26/17 PHYSICIAN AND INSTITUTION [place] [address] [place], [place] [address] Signed William Estevez 10/26/17 <signature on file> Performed By: #### PIMM #### [facility] [address] [place] [address]. [place], [address] EMERGENCY DEPARTMENT Observed: 10/16/2017 Status: F Source: [place] SUMMARY 3:44 PM [facility] REPOSITORY [facility] Medical Records Department [address] [place] [address] Emergency Department Summary 10/16/17 1534 MR#: [id number] Acct: [id number] Name: KELLIE ARROYO Rep #: [id number] : 1990 27 From: Jm Cardenas MD PCP: MINERVA CROCKETT Status: REG ER - ER Visit Summary Date of Service: 10/16/17 Chief Complaint: Acute right flank and right lower quadrant abdominal pain with frequency History of Present Illness: The patient is a 27 F who states she had right flank pain on Sunday. She has recurrence of the pain. She denies fever, chills night sweats. She does complain of nausea without vomiting or diarrhea. She does have known history of renal calculi. She denies any ocular, visual auditory symptoms. She denies any cardiorespiratory symptoms. Last menses September 19. She states her menses was normal. She denies headache, paresthesia, anesthesia or motor weakness. She denies polyuria, polydipsia or polyphagia. She denies bruising easily. She denies any allergic type symptoms. Physical Examination: Patient appears uncomfortable. Heart rate is 117 otherwise vital signs are unremarkable. Temperature is 99.4. Head is atraumatic normocephalic. Pupils are equal round reactive. Extraocular muscles are intact. TMs are pearly white with landmarks noted. Nares patent with no drainage. Posterior pharynx without erythema or exudate. Uvula is midline. There is no dysphonia or dysphasia. Trachea is midline. There is no stridor with auscultation of the neck. Heart is regular without murmur, gallop or rub. S1 and S2 are normal. Lungs are clear to auscultation with good movement of air bilaterally. Abdomen minimal tenderness over the right kidney with deep palpation. Equivocal right CVA tenderness. No evidence of umbilical inguinal hernia. There are no skin lesions or rash noted. Neuro exam is nonfocal. Test Results: BMP is unremarkable. Urine is consistent with infection. Because she has history of known calculi has significant pain that is intermittent will obtain a CT to evaluate for obstruction. There is evidence of hydroureter nephrosis which is felt to be secondary to reflux. There is a 4.5 mm renal calculus. There is no obstructing ureteral calculus. Emergency Department Course and Treatment: AP and UA were obtained. Because the UA is positive for infection a CT was obtained. Urine culture was sent and she received Rocephin IV piggyback. Case was discussed Dr. Leong would like to see her in 1 week. He will follow-up culture results. Treatment Plan: Prescription for Rarden, Zofran, ciprofloxacin and urologic outpatient follow-up Disposition: Discharged in stable improved condition Impression: 1. Acute pyelonephritis, right 2. Right renal calculus 3. Hydroureter and process secondary to reflux This note was generated with Transporeon dictation software. It may contain incorrect words, spelling, and punctuation that were not noted in review of the chart prior to signing ED Disposition - Plan for ED Patient: Disposition: Home or Assisted Living Chief Complaint: Flank Pain Instructions: ED Stone Renal Passed, ED Kidney Infec Female Prescriptions: Hydrocodone Bitart/Apap 5-325 [Rarden 5MG-325MG] 1 tab PO Q6H PRN PRN 3 Days #10 tab PRN Reason: Pain Ondansetron [Zofran Odt] 8 mg PO Q8H PRN PRN #10 tab PRN Reason: Nausea/Vomiting Ciprofloxacin HCl 500 mg PO BID #20 tab Referrals: Minerva Crockett [Primary Care Provider] - Hussain Wilson MD [STAFF PHYSICIAN] - 1 Week What to do if you have Problems For any increased pain, shortness of breath, bleeding, nausea or vomiting, chest pain, or any unexpected problems, contact your Primary Care Provider. Call [facility] ([phone]) or report to the closest Emergency Room. Call 911 if necessary. 10/16/17 1541 <Electronically signed by Jm Cardenas MD> Date Jm Cardenas MD Cosigner Signature (If Indicated): Date CC: MINERVA CROCKETT; Hussain Wilson MD ABDOMEN/PELVIS WITHOUT Observed: 10/16/2017 Status: F Source: [place] CONT 1:19 PM [facility] [place] REPOSITORY [facility] Imaging Services [address] [place] [address] Abdomen/Pelvis without Cont MR#: [id number] Acct: [id number] Name: KELLIE ARROYO Rep #: [id number] : 1990 F 27 From: Nestor Whitfield MD PCP: MINERVA CROCKETT Status: REG ER Study: Abdomen/Pelvis without Cont Date of Exam: 10/16/17 Exam# [id number] Ordering Dr: Jm Cardenas MD STUDY: CT ABDOMEN AND PELVIS WITHOUT CONTRAST REASON FOR EXAM: Female, 27 years old. Right flank pain. UTI. RADIATION DOSAGE (If Supplied By Facility): CTDIvol = ( 6.19 ) mGy, DLP = ( 289.34 ) mGycm TECHNIQUE: Transaxial images were obtained from the dome of the diaphragm to the symphysis pubis without oral contrast, and without intravenous contrast. Sagittal and coronal images were reconstructed. Individualized dose optimization techniques were used for this CT. COMPARISON: Comparison is made with prior study dated December 08, 2015. FINDINGS: The visualized lung bases are unremarkable. The visualized portions of the heart are within normal limits. Normal liver. Normal gallbladder and extrahepatic biliary system. Normal spleen. Normal pancreas. Normal bilateral adrenal glands. There is a 4.5 mm calculus in the lower pole of the right kidney. Stable mild degree of right hydronephrosis and right hydroureter. No obstructive ureteral calculus is seen. This may be due to right ureteral vesicle reflux. Normal left kidney. Normal visualized stomach. Normal small intestine. Normal colon. The appendix is visualized and appears normal. Normal abdominal aorta. Normal inferior vena cava. Normal retroperitoneum. The urinary bladder is distended. Normal abdominal wall. Normal osseous structures. CT/Abdomen/Pelvis without Cont IMPRESSION: Stable mild right hydronephrosis and hydroureter without evidence of obstructive calculus. 4.5 mm nonobstructive calculus in the posterior lower pole of the right kidney. Electronically Signed: Nestor Whitfield MD at 14:20 EST Tel [phone], Service support , CC: MINERVA CROCKETT; Jm Cardenas MD Gambling Floor Supervisor: Signed URINALYSIS, COMPLETE Collected: 10/16/2017 Status: F Source: [place] 11:50 AM [facility] REPOSITORY Order Comment: Order Date: 10/16/17 How was Urine Obtained? CLEAN CATCH TYPE CODE TESTS RESULT OUT OF RANGE REFERENCE UNITS LAB L400.3000 Yellow COLOR Normal Yellow LAB L400.3050 Clear Normal CLARITY Cloudy LAB L400.3200 Normal mg/dl Normal GLUCOSE, UR Normal LAB L400.3300 Negative mg/dL Normal BILIRUBIN URINE Negative LAB L400.3400 Negative mg/dl High KETONE UR 150 Result Comment: CRITICAL VALUE *H CRITICAL VALUE VERIFIED. CALLED TO KARLO BRISCOE 10/16/17 1203 Renetta Dasilva. RESULTS READ BACK BY SAME . LAB L400.3465 1.002-1.030 Normal SP.GR. DIPSTX 1.010 LAB L400.3550 5.0 - 8.0 pH Normal UR 6.0 LAB L400.3600 Negative mg/dl High 30 PROT DIPSTX LAB L400.3700 Normal mg/dl Normal UROBILI Normal LAB L400.3750 Negative High NITRITE UR Positive LAB L400.3780 Negative /ul High OCCULT 250 BLOOD-UR LAB L400.3800 Negative /ul High LEUK ESTERASE 500 LAB L400.4050 0-5 /hpf Normal WBC 50-100 SEEN Result Comment: MANY CLUMPS SEEN LAB L400.4100 0-5 /hpf Normal RBC-UA 0-5 SEEN LAB L400.4150 5-10 /hpf Normal SQUAM EPI 0-5 SEEN LAB L400.4300 None Seen /hpf Normal BACTERIA 2+ LAB L400.4350 <or=2+ /hpf Normal MUCUS, URINE 0 SEEN Performed By: #### L400.0001 #### [facility] [address] [place], [address] Observed: 10/16/2017 Status: F Source: [place] CULTURE, URINE 11:50 AM [facility] REPOSITORY Order Date: 10/16/17 Urine Culture ORGANISM 1: Escherichia coli Nahma Count >100,000 ORGANISM 2: Enterobacter aerogenes Nahma Count >100,000 Escherichia coli: REACTION Amoxacillin/Clavulanic Acid $ <=2 S Ampicillin $ <=2 S Ampicillin/Sulbactam $ <=2 S Cefazolin $ <=4 S Cefepime $ <=1 S Ceftriaxone $ <=1 S Ciprofloxacin $ <=0.25 S ESBL - Ertapenim $$$ <=0.5 S Gentamicin $ <=1 S Imipenem *NF <=0.25 S Levofloxacin $ <=0.12 S Nitrofurantoin $ <=16 S Piperacillin/Tazobactam $$ <=4 S Tobramycin $ <=1 S Trimethoprim/Sulfametho $ <=20 S (NF) indicates non-formulary drug at [facility]. Approval by Infectious Disease Specialist required before non-formulary drugs may be ordered and/or dispensed. Enterobacter aerogenes: REACTION Amoxacillin/Clavulanic Acid $ 4 R Cefazolin $ <=4 R Cefepime $ <=1 S Ceftriaxone $ <=1 S Ciprofloxacin $ <=0.25 S Ertapenim $$$ <=0.5 S Gentamicin $ <=1 S Imipenem *NF 0.5 S Levofloxacin $ <=0.12 S Nitrofurantoin $ 64 I Piperacillin/Tazobactam $$ <=4 S Tobramycin $ <=1 S Trimethoprim/Sulfametho $ <=20 S (NF) indicates non-formulary drug at [facility]. Approval by Infectious Disease Specialist required before non-formulary drugs may be ordered and/or dispensed. Performed By: #### M100.0650 #### [facility] [address] [place], [address] BASIC METABOLIC Collected: 10/16/2017 Status: F Source: [place] PROFILE (BMP) 11:48 AM [facility] REPOSITORY TYPE CODE TESTS RESULT OUT OF RANGE REFERENCE UNITS LAB L501.0100 74-106 mg/dL Normal GLU 80 Result Comment: Please note revised GLUCOSE reference range effective 2017. LAB L501.1000 7-18 mg/dL Normal BUN 7 LAB L501.1100 0.55-1.02 mg/dL Normal CREAT,SERUM 0.60 Result Comment: The validity of the calculated GFR AND GFRAA in patients over 70 years has not been determined. Clinical correlation is essential. LAB L501.1110 >60 mL/min Normal EST GFR 129 Result Comment: Non- GFR Calc LAB L501.1115 >60 mL/min Normal EST GFR - AA 157 Result Comment: GFR Calc LAB L501.1255 ml/min Normal Estimated CRCL 123.77 LAB L501.1300 10-20 RATIO BUN/CRE Normal 11.7 LAB L501.2200 8.5-10 mg/dL .1 CA Normal 8.8 LAB L501.5300 136-14 mmol/L 5 NA Normal 139 LAB L501.5600 3.5-5. mmol/L 1 K Normal 3.9 LAB L501.5900 98-107 mmol/L CL Normal 104 LAB L501.6100 21.0-3 mmol/L 2.0 CO2 Normal 27.0 LAB L501.6200 5-15 GAP Normal 8 Performed By: #### L500.2500 #### [facility] [address] [place], [address] PROGRESS Observed: 10/03/2017 Status: COMPLETED Source: [place] 2:35 PM [facility] [place] REPOSITORY HNO ID: [id number] Author: Anna Amaro Psr Service: (none) Author Type: (none) Type: Progress Notes Filed: 10/03/2017 2:36 PM Note Text: pap logged, letter sent. Anna Amaro Psr SURGERY VISIT REPORT Observed: 09/27/2017 Status: F Source: [place] 9:14 AM [facility] REPOSITORY [facility] [address] [place] [address] OFFICE VISIT Date of Service: 09/26/17 MR#: [id number] Acct: [id number] Name: KELLIE ARROYO Rep #: [id number] : 1990 Provider: Emmy Green MD Age/Sex: 27/F Location: [facility] Status: Signed Intake Vital Signs09/26/17 Height 5 ft 4 in 09/26/17 Weight: 125 lb 09/26/17 Body Mass Index (BMI) 21.4 Intake Visit Reasons: ABD Pain, Blood in Stool Stock Pitcher Required: No Is patient in pain?: No Allergies No Known Allergies Allergy (Verified 09/26/17 13:50) Medications kdpmluowdk-yrytmlvxqsbce-fqfjjmcj 50 mg-300 mg-40 mg capsule 1 cap PO ONCE 09/26/17 [History Confirmed 09/26/17] PFSH Medical History Abdominal pain in female (Acute) Hematochezia (Acute) Migraines (Acute) Family History Mother No problems noted. Social History Smoking Status: Never smoker alcohol intake: never HPI HPI HPI: KELLIE ARROYO, is a 27 F who presents to the office today for tarry stools, bright red blood in the toilet, diarrhea and abdominal pain. Patient states that she has had diarrhea for about 5 years and she is questioning whether it is food related and tried to use a food journal however have not has not noticed any correlations. States the last week she has had diarrhea 2 out of 7 days. Otherwise she states she only has a bowel movement every 2 days and has to strain. Patient denies using any laxatives or stool softeners or trying to increase the fiber in her diet. Patient states she has had tarry stools occasionally for the last 6 months she would have it about every 1-2 months should have a tarry stool her last ratio was about a month ago. Patient also states she had some brighter blood that can be in the toilet this started last month when she had it about once a week however has improved since then and her last time having bright red blood was 2 weeks ago. The patient also complains of occasional abdominal pain typically said more likely in the upper abdomen in a bandlike and she will have this 3-4 days out of the week patient denies any reflux symptoms. She does state that when she has this she usually has diarrhea. And she will also occasionally have bandlike lower abdominal pain with this is left soft and may be 1 or 2 times a week and these pains will last from 10 minutes to an hour and nothing really makes it better or worse and she rates them a be a 6/10 when they occur. Currently patient denies abdominal pain ROS General General: Yes fatigue (chronic); no weight change Gastro Gastrointestinal: Yes abdominal pain, Yes nausea or vomiting (no vomiting), Yes diarrhea, Yes constipation, Yes blood in stool, Yes black,tarry stools, No acid reflux, No hemorrhoids, No ulcers, No gallbladder problem Exam Const General: cooperative, comfortable, no acute distress Resp Auscultation: clear to auscultation bilaterally Cardio Rate: regular rate Rhythm: regular rhythm GI Inspection: non-distended Palpation: soft, tender (mild) in the RLQ, in the RUQ, in the LLQ and periumbilically, no guarding Assessment AND Plan Problems 1. Tarry stool K92.1 2. Blood per rectum K62.5 3. Diarrhea R19.7 4. Upper abdominal pain R10.10 Plan I have discussed the above with the patient. I have offered the patient dx egd AND colonoscopy for evaluation. I have explained the risks/benefits of the procedure and described the procedure. I have discussed the risks with the patient, including but not limited to: infection, bleeding, perforation of the GI tract requiring emergency surgery, inability to complete the procedure, injury to any internal organs, complications of anesthesia, etc. - the patient understands and agrees to proceed. I have answered all the patient's questions to the patient's satisfaction and the patient has no further questions. The patient has been given instructions for the colon cleansing preparation- split dose, 2 days clears. Emmy Green M.D. Pager: [phone] [facility] [address] [place] [address], [address] [place] [id number] Office: [phone] Orders Orders: Medications New: Discontinued: Plan Detail Follow Up 1 (will schedule egd colonoscopy) Coding Level of Care Code Off vis,new,level 3 Diagnoses Tarry stool K92.1 Blood per rectum K62.5 Diarrhea R19.7 Upper abdominal pain R10.10 09/27/17 0914 <Electronically signed by Emmy Green MD> Date Emmy Green MD Cosigner Signature: Date (if applicable) CC: MINERVA CROCKETT Observed: 09/21/2017 Status: F Source: [place] BACT/CAND VAG [facility] 11:30 PM [facility] REPOSITORY Sp. Request/Comment: - Swab Smear Result - BACTERIAL VAGINOSIS RESULT: Stain results indicate mixed morphotypes consistent with transition from normal vaginal jayashree. No Yeast observed Moderate Polymorphonuclear leukocytes Performed By: #### BVCNSM #### [facility] [address] [place], [place] [address] CYTOLOGY Observed: 09/21/2017 Status: F Source: [place] 10:22 AM [facility] REPOSITORY Specimen originated from [facility] Specimen #: [id number] Submitting Physician: JOSI HUGO CNP SPECIMEN SUBMITTED A: CERVICAL, SCREENING, FLUID FINAL DIAGNOSIS A. CERVICAL, SCREENING, FLUID Satisfactory for interpretation. Negative for intraepithelial lesion or malignancy. This specimen has been analyzed by the ThinPrep Imaging System, an automated imaging and review system, which assists the laboratory in evaluating cells on ThinPrep Pap tests. Following automated imaging, selected mackenzie from every slide are reviewed by a e learning developer. ALESSANDRA Howell(ASCP) (Electronic Signature) CLINICAL DATA ROUTINE EXAM, HPV Testing: Yes, Reflex HPV for ASCUS Date of Last Menstrual Period: 08/27/2017 STAINS A: CERVICAL, SCREENING, FLUID THIN PREP PLANNING COORDINATOR Marry Solis M.D., Bleach Boiler Puller Date of Report: 10/03/2017 Date of Procedure: 09/21/2017 Date of Receipt: 09/24/2017 Submitted by: JOSI HUGO CNP Location: [facility] Diagnostic interpretation performed at [facility], [address] [place] [address]. The Pap Smear is a screening test for cervical cancer. False negative results occur with all screening tests, emphasizing the need for rescreening at recommended intervals, and clinical correlation. PROGRESS Observed: 09/21/2017 Status: COMPLETED Source: [place] 9:50 AM [facility] REPOSITORY HNO ID: [id number] Author: Josi (Kev Hugo Service: (none) Author Type: Nurse Practitioner Type: Progress Notes Filed: 09/21/2017 1:05 PM Note Text: Tool Marker offered: Patient declines. Kellie Arroyo is a 27 year old who presents for her annual gynecologic exam with complaints. Has history of frequent yeast infections. Has chronic white thick cottage-cheese type discharge daily. Sometimes has itching. Has been treated with diflucan and monistat over the past years but symptoms always continue or return soon after resolution. Menses: cycles every 30 days and 7 days of flow. The first 4 days are heavy flow, has to change super tampon every hour. Contraception: condoms HPV vaccine: Yes Last Pap: 2014 normal HPV: N/A History of abnormal pap: No Last mammogram: never Sexually active: Yes Patient concerns for STD exposure: No. Time with current partner: 1.5 years Pain with intercourse: Yes, irritation and sometimes swelling of labia afterwards Postcoital bleeding: No Exercise: active at work Diet: balanced Seatbelt use: Yes Obstetric History T0 L0 SAB0 TAB0 Ectopic0 Multiple0 Live Births0 PAST MEDICAL HISTORY Diagnosis Date - Fracture of elbow Left - Seizure (HCC) with use of wellbutrin PAST SURGICAL HISTORY Procedure Laterality Date - NONE FAMILY HISTORY Problem Relation Age of Onset - Breast Cancer Paternal Grandmother - Breast Cancer Maternal Aunt Great Aunt SOCIAL HISTORY Social History Substance Use Topics - Smoking status: Never Smoker - Smokeless tobacco: Never Used - Alcohol use No REVIEW OF SYSTEMS Abdomen: No abdominal pain, nausea, vomiting, diarrhea, or constipation. No bloating, early satiety, indigestion, or increased flatulence. Evaluated PCP earlier this week for stomach issues - pain, black stool, blood in stool and is scheduled for colonoscopy. Bladder: No dysuria, gross hematuria, urinary frequency, urinary urgency, or incontinence. Breast: No breast lumps, nipple d/c, overlying skin changes, redness or skin retraction. Allergies and current medication updated:Yes EXAM: BP 100/60 Ht 5' 4.5 (1.64m) Wt 130 lb 9.6 oz (59.2kg) LMP 08/27/2017 BMI 22.08 kg/(m2). GENERAL: pleasant, female in no apparent distress HEENT: Normocephalic, atraumatic, mucus membranes moist and no lesions NECK: Supple, full range of motion, no adenopathy and thyroid normal DERMATOLOGY: Normal, without lesions, non-icteric and non-hirsute BREAST: soft, non-tender, symmetric, no dominant mass, normal nipple-areolar complex, no lymphadenopathy and no nipple discharge CHEST: Normal inspiratory effort ABDOMEN: soft, non-tender and no masses PELVIC: external genitalia erythematous, normal Bartholin's glands, urethra, Newsoms's glands, no vulvar lesions, no cervical lesions, good vaginal support, normal appearing perineal body and perianal region, abnormal discharge - thick white discharge adherent to vaginal pate. BIMANUAL: uterus normal size, shape and consistency, no adnexal masses and non-tender RECTOVAGINAL: deferred. NEURO: alert and oriented x3,exam grossly non-focal EXTREMITIES: normal ASSESSMENT/PLAN: 1) Health maintenance: Pap done with reflex HPV. Nutrition, exercise and routine health maintenance exams reviewed. HPV vaccine: completed series 2) Contraception: condoms. Contraceptive options reviewed and information provided. Was not happy with OCP use in the past. 3) STD screening: Accepted STD check for Gonorrhea and Chlamydia. 4. Vaginal discharge - ICD9: 623.5, ICD10: N89.8 Chronic white discharge. - GC/CHLAMYDIA DNA DET - BACT/RASHEEDA VAG GRAM STAIN - RAPID TRICH B/O - negative - RAPID BV B/O - negative 4. Vulvovaginitis due to Rasheeda - Diflucan 3 doses 3 days apart. May consider suppressive therapy . 4) Follow up one year or sooner as needed JOSI HUGO CNP GC/CHLAMYDIA AMPLIF Collected: 09/21/2017 Status: F Source: [place] 3:52 AM [facility] [place] REPOSITORY TYPE CODE TESTS RESULT OUT OF REFERENCE UNITS RANGE LAB GCCTSR GC/Chlam Amp Cervix Source LAB GCAMPL GC Negative Amplification for Neisseria gonorrhoeae by amplification. LAB CLAMPL Chlamydia Negative Amplif for Chlamydia trachomatis by amplification. Performed By: #### GCCT #### [facility] [address] [place] [id number] ALLERGIES ALLERGIES DATE TYPE / CODE NAME / CODE REACTION SEVERITY SOURCE 10/22/2017 Drug No Known Unknown [facility] Allergy/416 Allergies/Y89196 Hospital 234722(SNOM 0388(RXNORM) Repository ED CT) 09/21/2017 DRUG BUPROPION HCL OTHER: SEE C [facility] INGREDI/[address] [place] 404813(SNOM Repository ED CT) Drug NO KNOWN [facility] Class/50407 ALLERGIES [address] [place] 1003(SNOMED Repository CT) ENCOUNTERS ENCOUNTERS ADMIT/DISCHARGE ACCOUNT ADMITTING ENCOUNTER LOCATION SOURCE NUMBER CLASS 09/02/2018 [id number] Ambulatory [facility] ing:US Repository 11/18/2017/11/20/19 [id number] Ambulatory [address] Repository 11/05/2017 [id number] [facility] 10/24/2017/10/25/19 [id number] Ambulatory [place] [address] ing:EN Repository 10/24/2017 [id number] Ambulatory BMSBuilding:B [place] MS.[facility] Repository 10/16/2017/10/17/19 [id number] Emergency [place] [address] [place] [address] ing:ED Repository 10/16/2017 [id number] Ambulatory BMSBuilding:B [place] MS.[facility] Repository 09/26/2017/09/26/19 [id number] Ambulatory BMSBuilding:B [place] [address] MS.[facility] Repository 09/21/2017/09/25/19 [id number] Ambulatory [address] Repository PAYERS PAYERS ENCOUNTER GUARANTOR PAYER SUBSCRIBER SOURCE 09/02/2018 KELLIE Mimi Primary KELLIEDAVID Martinezoster [id number] [facility] TOMASSETTIDOB: Counts Include 234 Beds At [facility] [place] ic Number: [id number] [id number] Repository [address]Qob: 330) Date:6560-13-41CV [phone] () [place], [place] [address]ZB: 09/02/2018 Secondary NOT GIVENUNK [place] Insurance:SELF PAY [facility] Number: Effective Repository Date:2018-08-30 11/05/2017 KELLIE Le Primary Vinay C [place] [id number] Insurance:MEDICAL ZollingerDOB: Counts Include [address]eds At [facility] RITAN [facility] [id number] Number: Repository [address]Cdk: [phone] [id number] [phone] () Date:[id number] [address] [place] [phone]: 11/05/2017 Secondary NOT GIVENUNK [place] Insurance:SELF PAY [facility] Number: Effective Repository Date:2017-10-29 10/24/2017 KELLIE Le Primary Vinay C [place] [id number] Insurance:MEDICAL ZollingerDOB: [facility] [id number], [place] Number: Repository [address]Kot: 330 [id number] [phone] (HP) Date:[id number] [address] [place] [phone]: 10/24/2017 Secondary NOT GIVENUNK [place] Insurance:SELF PAY [facility] Hospital Number: Effective Repository Date:2017-09-26 10/24/2017 KELLIE Le Primary Vinay C [place] [id number] Insurance:MEDICAL ZollingerDOB: [facility] [id number] Number: Repository [address]Wid: 330 [id number] [phone] (HP) Date:5805-40-05WZ [address] [place] [phone]: 10/24/2017 Secondary NOT GIVENUNK [place] Insurance:SELF PAY [facility] Number: Effective Repository Date:2017-10-24 10/16/2017 KELLIE NUNEZ Primary Vinay C [place] [id number] Insurance:MEDICAL ZollingerDOB: [facility] [id number] [place], [place] Number: Repository [address]Vbv: [phone] [id number] [phone] (HP) Date:8641-48-47ND [address] [place] [phone]: 10/16/2017 Secondary NOT GIVENUNK [place] Insurance:SELF PAY [facility] Hospital Number: Effective Repository Date:2017-10-16 10/16/2017 KELLIE Le Primary Vinay C [place] [id number] Insurance:MEDICAL [facility]lingerD[facility] [id number] Number: Repository [id number]: [phone] [id number] (HP) Date:1992-03-78[address] [place] [id number]: 10/16/2017 Secondary NOT GIVENUNK [place] Insurance:SELF PAY [facility] Number: Effective Repository Date:2017-10-16 09/26/2017 KELLIE Albert [id number] Insurance:MEDICAL ZollingerDOB: [facility] [id number] Number: Repository [id number]: [phone] [id number] [phone] () Date:1933-59-22[address] [address]KF: 09/26/2017 Secondary NOT GIVENUNK [place] Insurance:SELF PAY [facility] Number: Effective Repository Date:2017-09-25
== END ==
PROVIDERS: Family Provider Family Medicine; PCP Family Medicine; Referring Provider Nurse Practitioner Adult Health; Visit Provider Nurse Practitioner Adult Health
DX: N13.30 Unspecified hydronephrosis (principal); R33.9 Retention of urine, unspecified
CPT/HCPCS: 76770

== ENCOUNTER → 2018-09-11 11:11 | Outpatient (CLI) | payer OTHER, SELFPAY | PROVIDERS: Family Provider Family Medicine; PCP Family Medicine; Referring Provider Nurse Practitioner Adult Health; Visit Provider Nurse Practitioner Adult Health | DX: R82.998 Other abnormal findings in urine (principal) | CPT/HCPCS: 87077; 87086; 87088; 87186 ==

== ENCOUNTER → 2018-11-08 09:03 | Outpatient (CLI) | payer OTHER, SELFPAY ==
[2018-11-08 10:30] LABS: hCG Titer Quant., Serum 12 mIU/mL (<9 non-preg)
== END ==
PROVIDERS: Family Provider Family Medicine; PCP Family Medicine; Referring Provider Obstetrics & Gynecology; Visit Provider Obstetrics & Gynecology
DX: Z34.90 Encounter for supervision of normal pregnancy, unspecified, unspecified trimester (principal)
CPT/HCPCS: 36415; 84702

== ENCOUNTER → 2018-11-10 09:30 | Outpatient (CLI) | payer OTHER, SELFPAY ==
[2018-11-10 10:25] LABS: hCG Titer Quant., Serum 4 mIU/mL (<9 non-preg)
== END ==
PROVIDERS: Family Provider Family Medicine; PCP Family Medicine; Visit Provider Obstetrics & Gynecology
DX: Z34.90 Encounter for supervision of normal pregnancy, unspecified, unspecified trimester (principal)
CPT/HCPCS: 36415; 84702

== ENCOUNTER 2019-08-28 19:30 | Outpatient (CLI) | payer OTHER, SELFPAY ==
[2019-08-28 19:59] VITALS: BMI 29.7
--- NOTE | 2019-09-02 17:51 | OB.TRI.NOTE ---
History of Present Illness Date of Service: 08/28/19 Was patient seen by the physician?: No Reason For Visit: DECREASED MOVEMENT Date of Service: 08/28/19 Final TONY: 10/14/19 Gestational age: 33w 2d Allergies bupropion [From Wellbutrin] Adverse Reaction (Verified 08/28/19 20:02) Other pt reports medication gives her seizures - Pertinent Past Medical History Medical History: Past Medical History (Last Reviewed 09/26/17 @ 13:49 by Edwige Brand) Diarrhea (Chronic) Tarry stool (Chronic) Abdominal pain in female Hematochezia Migraines NST - FHR Rate Baby A Baseline: 135 Variability:: Moderate Accelerations:: 15 x 15 Decelerations:: None NST Reactive:: Yes, Appropriate for gestational age FHR Category:: Category I Uterine Activity:: irregular ctxs
== END 2019-08-28 20:27 | disposition home or self-care (01) ==
LOC: WPOUT 19:38 → OBT 19:38
PROVIDERS: PCP Family Medicine; Visit Provider Obstetrics & Gynecology
DX: O36.8130 Decreased fetal movements, third trimester, not applicable or unspecified (principal); Z3A.33 33 weeks gestation of pregnancy
CPT/HCPCS: 59025; 59050; 99218; G0378

== ENCOUNTER 2019-09-29 12:15 | Outpatient (CLI) | payer OTHER, SELFPAY ==
[2019-09-29 12:38] VITALS: BMI 31.0
--- NOTE | 2019-10-07 11:20 | OB.TRI.PN ---
Progress Notes Date of Service: 09/29/19 Progress Note: S:37w6d who Presented to OB triage with complaint of decreased movement. No other complaints. O: NST 135, minimal to moderate variability, accels, no decels, reactive A: Decreased movement P: 1) NST reactive. 2) D/C home
== END 2019-09-29 12:55 | disposition home or self-care (01) ==
LOC: WPOUT 12:33 → OBT 12:33
PROVIDERS: PCP Family Medicine; Referring Provider Advanced Practice Midwife; Visit Provider Advanced Practice Midwife
DX: O36.8130 Decreased fetal movements, third trimester, not applicable or unspecified (principal); Z3A.37 37 weeks gestation of pregnancy
CPT/HCPCS: 59025; 59050; 99218; G0378

== ENCOUNTER 2019-10-02 16:40 | Inpatient (IN) | payer OTHER, SELFPAY ==
[2019-10-02] MEDS: 0.9% Saline Lock 10 ML Syringe IV (16:50)
[2019-10-02 17:05] VITALS: BMI 31.4
--- NOTE | 2019-10-02 17:22 | HP.PCM_ITS ---
History Date of Admission: 10/02/19 Final TONY: 10/14/19 Gestational age: 38 Weeks and 2 Days History of this : This is a 29 year-old, G [], P [], at weeks gestational age. Medical History: Medical History (Last Updated 10/02/19 @ 17:[address] Andra Lyons) Diarrhea (Chronic) R19.7 Tarry stool (Chronic) K92.1 Depression F32.9 Abdominal pain in female R10.9 Hematochezia K92.1 Migraines G43.909 Allergies bupropion [From Wellbutrin] Adverse Reaction (Verified 10/02/19 17:05) Other pt reports medication gives her seizures Home Medications: Home Medications Vit No.130/Iron/Folic [ Tablet] 1 tab PO DAILY 08/28/19 Smoking Status: Never smoker Alcohol: None Number of Fetus(es): 1 NST - FHR Rate Baby A Baseline: 130 Variability:: Moderate Accelerations:: 15 x 15 Decelerations:: None Uterine Activity:: quiet History Past Pregnancies: Past Pregnancies Delivery Date Name GA/ Weeks Outcome Route Wt Sex Labor Length Anesthesia Delivery Location Provider FOB Labs: See [facility] H&P Physical Exam General: Alert, Oriented x3 Abdomen: Soft, Non Tender, Non-Distended, Gravid Neurological: Cranial nerves II-XII grossly intact 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 Patient with persistent decreased FM in light of borderline oligohydramnios & grade 3 placenta. Discussed R/B/A of management options and patient wishes to proceed with induction of labor. Informed consent signed. All questions answered & patient agrees with plan. Induction - plan for cytotec GBS negative EFW - less than 4500g, patient with adequate pelvis Pain - epidural as desired Routine care
[2019-10-02 17:25] LABS: Absolute Lymphocyte Count 2.61 X10^3/uL (0.83-4.51); Basophil# 0.04 X10^3/uL; Basophil% 0.3 % (0-1); Eosinophil# 0.06 X10^3/uL; Eosinophils% 0.5 % (0-5); Hematocrit 37.5 % (37-47); Hemoglobin 12.7 g/dL (12.0-15.0); Lymphocyte # 2.61 X10^3/ul (4.0); Lymphocyte % 20.6 % (19-41); Mean Corp Hgb Conc 33.9 g/dL (32-36); Mean Corpuscular Hgb 33.1 pg (27.0-32.0); Mean Corpuscular Volume 97.7 fL (81-99); Mean Platelet Vol. 9.6 fl (6.2-12.0); Monocyte# 0.77 X10^3/uL; Monocyte% 6.1 % (0-10); NRBC Flagged by Analyzer 0 % (0-5); Neutrophil # 9.01 X10^3/uL (2.7-7.7); Neutrophil % 70.9 % (47-70); Platelet Count 299 K/mm3 (150-450); RBC Distribution Width CV 13.2 % (11.6-14.6); RBC Distribution Width SD 46.6 fl (35.1-43.9); Red Blood Count 3.84 M/mm3 (4.2-5.4); White Blood Count 12.7 K/mm3 (4.4-11.0)
[2019-10-02] MEDS: miSOPROStol 25 MCG TABLET VAGINAL (18:35)
[2019-10-02 21:24] LABS: Hematocrit 37.9 % (37-47); Hemoglobin 12.9 g/dL (12.0-15.0); Mean Corpuscular Hgb 33.2 pg (27.0-32.0); Mean Corpuscular Volume 97.4 fL (81-99); Mean Platelet Vol. 9.5 fl (6.2-12.0); Platelet Count 300 K/mm3 (150-450); RBC Distribution Width CV 13.1 % (11.6-14.6); RBC Distribution Width SD 46.4 fl (35.1-43.9); Red Blood Count 3.89 M/mm3 (4.2-5.4); White Blood Count 14.7 K/mm3 (4.4-11.0)
[2019-10-02 21:32] LABS: International Normalized Ratio 0.9; Prothrombin Time (Protime)PT. 12.1 SECONDS (11.7-14.9)
[2019-10-02 21:33] LABS: Partial Thromboplast Time 25.9 Seconds (24.1-36.2)
[2019-10-02 21:38] LABS: AST(SGOT) 27 U/L (15-37); Alanine Aminotransfer ALT/SGPT 25 U/L (13-56); Creatinine, Serum 0.62 mg/dL (0.55-1.02); EST Glomerular Filtration Rate 123 mL/min (>60); Est Glom Filt Rate - Afr Amer 148 mL/min (>60); Uric Acid 2.8 mg/dL (2.6-6.0)
[2019-10-02] MEDS: miSOPROStol 25 MCG TABLET 50 MCG VAGINAL (22:55)
[2019-10-02 23:37] LABS: Protein, Urine (Random) 18.2 mg/dL (<11.9); Protein:Creat Ratio 327 mg/g CRE (0-200)
[2019-10-03] VITALS (14 sets, daily range): BP systolic 113–137; BP diastolic 70–90; PULSE 65–102; RESP 14–20; TEMP 36.2–37.4; O2SAT 95–100
--- NOTE | 2019-10-03 | PLAC_PTH ---
PATIENT: SOPHY MIJARES LOC: [facility] U#:[id number] AGE/SX: 29/F ROOM: WP005 RE10/02/[address]: Dr. Letha Hwang DO : 1990 BED: 1 DIS: 10/06/2019 SPEC #: [id number] RECD: 10/03/19 17:45 STATUS: ROSELYN REKiesha #: [id number] CRISTOFER: 10/03/19 00:[address]: Letha Hwang DEPT: SURGICAL PATHOLOGY RECD BY: Lex Bangura ENTERED: 10/06/19 09:24 SP TYPE: PLACENTA OTHR DR: Dr. Andres Crockett DO Tissues: Placenta, NOS Procedures: Surgery Specimen Level V HEADER OPERATION: section PRE-OP DIAGNOSIS: Low-normal amniotic fluid, grade 2 placenta, intolerance to labor TISSUE SUBMITTED: Placenta MICROSCOPIC DIAGNOSIS Placenta: Placental disc - third trimester placenta (404 gm). -?Focal areas of infarction x2 (2.5 cm in greatest dimension). -?Focal area of villous congestion and hemorrhage (smallest lesion). Membranes - focal mild acute chorioamnionitis. Umbilical cord - three blood vessels and no pathologic diagnosis. GREY:hetal 10/07/19 MICROSCOPIC DESCRIPTION Slides are reviewed. GROSS DESCRIPTION SPECIMEN: PLACENTA / CLINICAL INFORMATION: A. Weight: 2.632 kg B. Gestational Age: 38 weeks C. Sex: Female PLACENTAL WEIGHT (POST FIXATION): 404 gm PLACENTAL DIMENSIONS: 15 x 15 x 3 cm PLACENTAL SHAPE: Usual ovoid PLACENTAL WEIGHT FOR GESTATIONAL AGE: Within 10-99th percentile MEMBRANES - Present A. Insertion: Marginal B. Site of rupture from edge: 7 cm from edge of placental disc C. Color of membrane: Chun mucoidy D. Abnormalities: None UMBILICAL CORD - Present A. Color: Chun-maki B. Insertion: Marginal C. Length: 28 cm D. Diameter: 1.5 cm E. Number of vessels: Three F. Abnormalities: None PLACENTAL DISC - Present A. Color of surface: Chun-maki B. surface abnormalities: None C. Maternal cotyledons: Intact with minimal tears D. Attached retro placental clot: No clot E. Cut surface: Dark red and spongy F. Lesions: Sections reveal three chun, indurated lesions, the largest measuring 2.5 cm in greatest dimension. G. Separate clot: Absent SECTIONS SUBMITTED: 1. Membrane roll 2. Cord, maternal end 3. Cord, end 4. Placental disc, and maternal surfaces, smallest lesion 5. Placental disc, and maternal surfaces, intermediate size lesion 6. Placental disc, and maternal surfaces, largest lesion GREY:hetal 10/06/19 TC:2 CPT: 32163
[2019-10-03] MEDS: miSOPROStol 25 MCG TABLET 50 MCG VAGINAL (05:00)
[2019-10-03] MEDS: 0.9% Saline Lock 10 ML Syringe IV ×2 (07:00→22:03)
[2019-10-03] MEDS: Lactated Ringers 1,000 ML 50 ML IV (07:01)
[2019-10-03] MEDS: Acetaminophen 325 MG Tablet PO (07:51)
[2019-10-03] MEDS: Ondansetron 4 MG/2 ML Vial IV (07:51)
[2019-10-03] MEDS: 0.9% Normal Saline Single 100 ML IV.SOLN. IY (08:21)
--- NOTE | 2019-10-03 08:25 | PCM.PN.BLA ---
Progress Note Cvx /-2. Intracervical whatley placed in usual fashion. Pt tolerated. Category 1 tracing.
[2019-10-03] MEDS: fentaNYL 100 MCG/2 ML Ampul IV (10:12)
[2019-10-03] MEDS: Lactated Ringers 500 ML 999 ML IV ×2 (10:49→14:11)
[2019-10-03] MEDS: fentaNYL-bupivacaine (epidural) 100 ML BAG EPIDURAL (11:37)
--- NOTE | 2019-10-03 13:08 | PCM.PN.BLA ---
Progress Note At bedside. Pt comfortable. Cvx 3/-2, head well applied. AROM performed in usual fashion with return of clear fluid.
--- NOTE | 2019-10-03 15:11 | PCM.PN.BLA ---
Progress Note Called to assess FHT. At bedside to review. FHT showing minimal variability and late decelerations. Recommended primary section given that she is sitll 3 cm dilated and remote from delivery. Reviewed r/b/a and pt desires to proceed with a section. To proceed with section IRINEO for intolerance to labor.
[2019-10-03] MEDS: Cefazolin 2 GM in 0.9% Normal Saline 100 ML IV (15:21)
[2019-10-03] MEDS: Sodium Citrate/Citric Acid 30 ML UDC PO (15:22)
--- NOTE | 2019-10-03 16:50 | PCM.OPRPT ---
Problem List (1) 38 weeks gestation of Status: Acute (2) Decreased movement Status: Acute (3) Non-reassuring status Status: Acute Report of Operation Date of Procedure: 10/03/19 Pre-Operative Diagnosis: 38 week gestation, patient had been feeling DFM for several days, normal-low RODRIGUE, grade 2 placenta, intolerance to labor, non-reassuring heart tracing remote from delivery Post-Operative Diagnosis: As above Surgery/Procedure Performed:: PLTCS via pfannenstiel incision Description of Surgical Findings:: Indications: Received call from nurse to review heart tracing. Immediately came to L&D after the phone call to evaluate patient. FHT noted to have minimal variability and late decelerations. Cervix 3 cm and patient remote from delivery. Recommended section IRINEO. Findings: Normal appearing uterus, bilateral tubes, bilateral ovaries. Calcified placenta with a three-vessel cord. Light meconium stained fluid. Viable female infant in vertex presentation with Apgars of 5 and 9. Type of Anesthesia:: Epidural Special Medications: None Specimen's removed: Placenta Drains: Bond Estimated Blood Loss (mL): 800 Fluids Replaced: See anesthesia report Description of Procedure: Patient was taken to the operating room where she was prepped and draped in the dorsal lithotomy position with a leftward tilt. Epidural anesthesia was found to be adequate. A scalpel was used to make a Pfannenstiel skin incision which was carried down to the underlying layer of the fascia. Fascia was incised in the midline and extended laterally using Pace scissors. The rectus was bluntly in the midline. The peritoneum was entered bluntly. Peritoneum was extended with good visualization of the bladder. Bladder was noted to be significantly distended and the Bond was not draining. The Bond was manipulated and noted to still not be draining. The Bond was removed by nursing staff and replaced. When the new Bond was replaced there was still no urine draining. The new Bond was manipulated and a large blood clot drained from the Bond followed by pink-tinged urine. The bladder was then successfully drained. A low transverse incision was made with a scalpel on the uterus. The uterine incision was extended bluntly. Viable female was noted to be in vertex position and was delivered atraumatically without any force or delay. The cord was clamped and cut immediately and the infant was handed off to the nursery staff. The placenta was removed with manual extraction. It was noted to be calcified with three-vessel cord. The placenta was sent to pathology for review. The uterus was cleared of all clot and debris. The uterus was exteriorized from the abdomen. The uterine incision was closed in a running locked fashion using Vicryl. Bleeding was noted from the left corner of the uterine incision and several additional [id number] sutures were placed for hemostasis. The uterine incision was noted to be hemostatic. The uterus was placed back in the abdomen. Sherly was placed over the uterine incision which was noted to still be hemostatic. Peritoneum was closed in a running fashion with Vicryl. The rectus muscles were made hemostatic with the Bovie cautery and additional Sherly. The fascia was closed in a running fashion with Vicryl. The subcutaneous space was irrigated and made hemostatic. Subcutaneous space was reapproximated with Vicryl in a running fashion. The skin was closed in a subcuticular fashion using Monocryl. Steri-Strips and a dressing were placed over the incision. Instrument counts were correct. The patient was taken to the recovery room in stable condition. Grafts/Implants Used: None - Complications None - Admit VTE Documentation VTE Present on Admission: No VTE Mechan Device Prophylaxis: SCD's Delivery Classification: IRINEO Final TONY: 10/14/19 Gestational age: 38 Weeks and 3 Days Amniotic Membrane Rupture Type: Artificial Amniotic Fluid Description: Lightly stained meconium Placenta Disposition: Sent to Pathology Drain: Bond to straight drain Cord Entanglement: None Cord Vessel Description: 3 Vessels Infant Gender: Female (1 minute): 5 (5 minute): 9 Delayed cord clamping: No Pt instructed on risks of surgery: Bleeding, Infection, Need for Future C-Sections, Injury to surrounding structure(s) including bowel and bladder Complications: None
[2019-10-03] MEDS: Oxytocin 30 units/NS 500 ml 30 UNITS/500 ML IV.SOLN 167 UNITS IV (17:01)
[2019-10-03] MEDS: Lactated Ringers 1,000 ML 100 ML IV (18:55)
[2019-10-03] MEDS: Ketorolac 30 MG/ML Syringe IV (22:03)
[2019-10-04] VITALS (13 sets, daily range): BP systolic 112–125; BP diastolic 73–88; PULSE 68–103; RESP 14–18; TEMP 36.6–37.2; O2SAT 94–100
--- NOTE | 2019-10-04 02:00 | NURSING ---
this RN reviewed the importance of getting up to ambulate as soon as possible post op. pt states she will be willing to ambulate this AM and attempt to get up to the chair. this RN will assess whatley catheter and urine output and see about removing that at that time, as well.
[2019-10-04] MEDS: Ketorolac 30 MG/ML Syringe IV ×4 (03:56→21:57)
[2019-10-04] MEDS: 0.9% Saline Lock 10 ML Syringe IV ×4 (03:56→21:59)
[2019-10-04 05:26] LABS: Hematocrit 34.4 % (37-47); Hemoglobin 11.6 g/dL (12.0-15.0); Mean Corp Hgb Conc 33.7 g/dL (32-36); Mean Corpuscular Hgb 33.2 pg (27.0-32.0); Mean Corpuscular Volume 98.6 fL (81-99); Mean Platelet Vol. 9.1 fl (6.2-12.0); Platelet Count 233 K/mm3 (150-450); RBC Distribution Width CV 13.2 % (11.6-14.6); RBC Distribution Width SD 47.8 fl (35.1-43.9); Red Blood Count 3.49 M/mm3 (4.2-5.4); White Blood Count 20.3 K/mm3 (4.4-11.0)
--- NOTE | 2019-10-04 09:22 | PCM.PN.OB ---
Patient Problems: Active and Suspected Problems (Last Updated 10/02/19 @ 17:[address] Andra Lyons) 38 weeks gestation of (Acute) Decreased movement (Acute) Non-reassuring status (Acute) Subjective: Doing well. Pain well controlled. Ambulating and voiding without difficulty. Denies lightheadedness, dizziness, chest pain, shortness of breath, leg pain. Having some nausea but no emesis. Tolerating liquids at this time. No flatus. Lochia normal. Breast-feeding. - Physical Exam Vitals/I&O's: Vital Signs Temp Pulse Resp BP Pulse Ox 98.9 F 103 H 14 120/79 94 10/04/19 08:45 10/04/19 08:45 10/04/19 08:45 10/04/19 08:45 10/04/19 08:45 Oxygen Delivery Method Room Air Weight: 182 lb 12.211 oz Body Mass Index (BMI) 31.4 Intake and Output for Last 24 Hours 10/02/19 10/03/19 10/04/19 23:59 23:59 23:59 Intake Total 1000 / 1000 2985 / 2985 901.67 / 901.67 Output Total 1075 / 1075 1000 / 1000 Balance 1000 / 1000 1910 / 1910 -98.33 / -98.33 General: Alert, No apparent distress HEENT: Atraumatic Abdomen: Soft, - - ATTP, +softly distended, FF@U, no rebounding, no gaurding, no rigidity Extremities: No edema, No Calf Tenderness Skin: No rashes Neurological: Neuro grossly intact Psych/Mental Status: Normal Affect, Appropriate Laboratory Results 10/04/19 05:20: WBC 20.3 H, RBC 3.49 L, Hgb 11.6 L, Hct 34.4 L, MCV 98.6, MCH 33.2 H, MCHC 33.7, RDW Std Deviation 47.8 H, RDW Coeff of Britni 13.2, Plt Count 233, MPV 9.1 Current Medications Acetaminophen (Tylenol) 1,000 mg PO Q8H PRN PRN Reason: Pain Score 1-3/10 Bisacodyl (Dulcolax) 10 mg RECTAL UD PRN PRN Reason: If no BM Diphenhydramine HCl (Benadryl) 25 mg PO Q6H PRN PRN PRN Reason: ITCHING Stop: 10/04/19 18:04 Hydrocortisone (Hytone) 1 applic TOPICAL TID PRN PRN; Protocol PRN Reason: Discomfort Naloxone HCl 4 mg/ Dextrose 504 mls @ 0 mls/hr IV .Q0M PRN; Protocol PRN Reason: Respiratory depression Ibuprofen (Motrin) 600 mg PO Q6H PRN PRN PRN Reason: Pain Score 1-3/10 Ketorolac Tromethamine (Toradol (Bkc)) 30 mg IV Q6H RUDOLPH Stop: 10/05/19 16:01 Last Admin: 10/04/19 03:56 Dose: 30 mg Documented by: Methylergonovine Maleate (Methergine) 0.2 mg IM X1 PRN PRN Reason: Uterine Atony Naloxone HCl (Narcan) 0.02 mg IV Q1M PRN PRN Reason: RR <10 and pt unresponsive Ondansetron HCl (Zofran) 4 mg IV Q4H PRN PRN PRN Reason: Nausea Oxycodone HCl (Oxyir) 5 - 10 mg PO Q4H PRN PRN PRN Reason: Pain Score 4-10/10 Prochlorperazine Edisylate (Compazine Iv) 10 mg IV Q6H PRN PRN PRN Reason: NAUSEA Senna/Docusate Sodium (Senokot-S, Marleni-Colace) 0 tablet PO DAILY PRN PRN Reason: Constipation Simethicone (Mylicon) 80 mg PO PCHS PRN PRN Reason: Indigestion/stomach pain Sodium Chloride () 5 - 15 ml IV UD PRN PRN Reason: SALINE FLUSH Last Admin: 10/04/19 03:56 Dose: 10 ml Documented by: Medical Necessity - Tobacco Use Smoking Status: Never smoker Assessment/Plan All Active Problems (Last Updated 10/02/19 @ 17:[address] Andra Lyons) 38 weeks gestation of (Acute) Decreased movement (Acute) Non-reassuring status (Acute) POD#1 s/p C/S - Pt doing well - Encourage ambulation today - Breast feeding - Dispo: Routine post op care
[2019-10-04] MEDS: Acetaminophen 500 MG Tablet 1000 MG PO ×2 (10:15→18:18)
[2019-10-04] MEDS: oxyCODONE 5 MG Tablet PO ×2 (16:12→19:45)
[2019-10-04] MEDS: Senna/Docusate Sodium 1 Tablet PO (18:00)
--- NOTE | 2019-10-04 20:12 | PCM.PN.BLA ---
Progress Note At bedside to examine pt for pain. She is having contraction type pain. Nausea with eating today. No vomiting. Ambulating without lightheadedness, dizziness. Voiding but she feels like she is not emptying her bladder completely. No flatus. PE: Gen- Uncomfortable appearing Abd- Softly distended, no rebounding, no guarding, no rigidity, dressing c/d/i A/P: - Concern for possible ileus. Discussed sips of clear and ice chips only for now. Awaiting flatus. Encouraged ambulation - Will get CBC now and in AM - Will perform PVR
[2019-10-04 21:08] LABS: Hematocrit 31.9 % (37-47); Hemoglobin 10.7 g/dL (12.0-15.0); Mean Corp Hgb Conc 33.5 g/dL (32-36); Mean Corpuscular Hgb 33.3 pg (27.0-32.0); Mean Corpuscular Volume 99.4 fL (81-99); Mean Platelet Vol. 9.1 fl (6.2-12.0); Platelet Count 267 K/mm3 (150-450); RBC Distribution Width CV 13.6 % (11.6-14.6); Red Blood Count 3.21 M/mm3 (4.2-5.4)
--- NOTE | 2019-10-04 21:11 | NURSING ---
late entry: dr. severino notified at 1940 of pt.'s increased pain, in to see pt. at 1950, plan to scan pt.'s bladder after next void due to pt. reporting feelings of not fully emptying bladder, plan to draw CBC tonight and in AM
--- NOTE | 2019-10-04 21:47 | NURSING ---
bladder scanned patient for 123 cc left after voiding 500 cc, report given to Dr. Hwang, Dr. Hwang indicates no further scans needed, CBC looked normal, will redraw in the morning
[2019-10-05] MEDS: oxyCODONE 5 MG Tablet PO ×5 (00:07→22:01)
[2019-10-05 01:13] VITALS: BP 117/71; PULSE 81; RESP 16; TEMP 36.6
[2019-10-05] MEDS: 0.9% Saline Lock 10 ML Syringe IV ×3 (03:42→16:02)
[2019-10-05] MEDS: Ketorolac 30 MG/ML Syringe IV ×3 (03:42→16:02)
[2019-10-05] MEDS: Acetaminophen 500 MG Tablet 1000 MG PO (05:22)
[2019-10-05 05:34] LABS: Hematocrit 29.7 % (37-47); Hemoglobin 9.8 g/dL (12.0-15.0); Mean Corpuscular Hgb 32.7 pg (27.0-32.0); Mean Platelet Vol. 8.9 fl (6.2-12.0); Platelet Count 245 K/mm3 (150-450); RBC Distribution Width CV 13.8 % (11.6-14.6); RBC Distribution Width SD 50.2 fl (35.1-43.9)
[2019-10-05 08:11] LABS: Pathology Specimen OB SEE PATHOLOGY REPORT
[2019-10-05 08:25] VITALS: BP 118/81; PULSE 77; RESP 14; TEMP 36.3
[2019-10-05] MEDS: Senna/Docusate Sodium 1 Tablet PO (09:01)
--- NOTE | 2019-10-05 11:04 | PCM.PN.OB ---
Patient Problems: Active and Suspected Problems (Last Updated 10/02/19 @ 17:[address] Andra Lyons) 38 weeks gestation of (Acute) Decreased movement (Acute) Non-reassuring status (Acute) Subjective: Patient doing well. She feels her pain is improved today and better controlled. She is ambulating without lightheadedness or dizziness. She is tolerating a diet and the nausea has improved. She is voiding without difficulty and feels she is now completely emptying her bladder. She denies chest pain, shortness of breath, leg pain. Lochia normal. She is breast-feeding. She is now passing flatus. - Physical Exam Vitals/I&O's: Vital Signs Temp Pulse Resp BP Pulse Ox 97.4 F L 77 14 118/81 H 95 10/05/19 08:25 10/05/19 08:25 10/05/19 08:25 10/05/19 08:25 10/04/19 16:00 Oxygen Delivery Method Room Air Weight: 182 lb 12.211 oz Body Mass Index (BMI) 31.4 Intake and Output for Last 24 Hours 10/03/19 10/04/19 10/05/19 23:59 23:59 23:59 Intake Total 2985 / 2985 901.67 / 901.67 Output Total 1075 / 1075 2100 / 2100 Balance 1910 / 1909 -1198.33 / -1198.33 General: Alert, No apparent distress HEENT: Atraumatic Abdomen: Soft, - - ATTP, softly distended - unchanged from yesterday, no rebounding, no gaurding, no rigidity Extremities: No edema, No Calf Tenderness Skin: No rashes Neurological: Neuro grossly intact Psych/Mental Status: Normal Affect, Appropriate Laboratory Results 10/04/19 20:50: WBC 20.0 H, RBC 3.21 L, Hgb 10.7 L, Hct 31.9 L, MCV 99.4 H, MCH 33.3 H, MCHC 33.5, RDW Std Deviation 49.0 H, RDW Coeff of Britni 13.6, Plt Count 267, MPV 9.1 10/05/19 05:15: WBC 19.0 H, RBC 3.00 L, Hgb 9.8 L, Hct 29.7 L, MCV 99.0, MCH 32.7 H, MCHC 33.0, RDW Std Deviation 50.2 H, RDW Coeff of Britni 13.8, Plt Count 245, MPV 8.9 Current Medications Acetaminophen (Tylenol) 1,000 mg PO Q8H PRN PRN Reason: Pain Score 1-3/10 Last Admin: 10/05/19 05:22 Dose: 1,000 mg Documented by: Bisacodyl (Dulcolax) 10 mg RECTAL UD PRN PRN Reason: If no BM Hydrocortisone (Hytone) 1 applic TOPICAL TID PRN PRN; Protocol PRN Reason: Discomfort Naloxone HCl 4 mg/ Dextrose 504 mls @ 0 mls/hr IV .Q0M PRN; Protocol PRN Reason: Respiratory depression Ibuprofen (Motrin) 600 mg PO Q6H PRN PRN PRN Reason: Pain Score 1-3/10 Ketorolac Tromethamine (Toradol (Bkc)) 30 mg IV Q6H RUDOLPH Stop: 10/05/19 16:01 Last Admin: 10/05/19 10:31 Dose: 30 mg Documented by: Methylergonovine Maleate (Methergine) 0.2 mg IM X1 PRN PRN Reason: Uterine Atony Naloxone HCl (Narcan) 0.02 mg IV Q1M PRN PRN Reason: RR <10 and pt unresponsive Ondansetron HCl (Zofran) 4 mg IV Q4H PRN PRN PRN Reason: Nausea Oxycodone HCl (Oxyir) 5 - 10 mg PO Q4H PRN PRN PRN Reason: Pain Score 4-10/10 Last Admin: 10/05/19 09:01 Dose: 10 mg Documented by: Prochlorperazine Edisylate (Compazine Iv) 10 mg IV Q6H PRN PRN PRN Reason: NAUSEA Senna/Docusate Sodium (Senokot-S, Marleni-Colace) 0 tablet PO DAILY PRN PRN Reason: Constipation Last Admin: 10/05/19 09:01 Dose: 2 tablet Documented by: Simethicone (Mylicon) 80 mg PO PCHS PRN PRN Reason: Indigestion/stomach pain Last Admin: 10/04/19 18:00 Dose: 80 mg Documented by: Sodium Chloride () 5 - 15 ml IV UD PRN PRN Reason: SALINE FLUSH Last Admin: 10/05/19 10:32 Dose: 10 ml Documented by: Medical Necessity - Tobacco Use Smoking Status: Never smoker Assessment/Plan All Active Problems (Last Updated 10/02/19 @ 17:[address] Andra Lyons) 38 weeks gestation of (Acute) Decreased movement (Acute) Non-reassuring status (Acute) Patient is postoperative day 2 from a section. Her pain is improved and is better controlled today now that she is passing flatus. HD stable and hemoglobin 9.8 this morning. - Doing well - - Dispo: Routine PO care. Anticipate d/c home tomorrow
[2019-10-05 14:10] VITALS: BP 125/86; PULSE 104; RESP 16; TEMP 37.1
[2019-10-05 19:50] VITALS: BP 126/89; PULSE 96; RESP 16; TEMP 37
--- NOTE | 2019-10-05 21:26 | PCM.PN.BLA ---
Progress Note Called for abdominal pain and at bedside to evaluate patient. Patient states her abdominal pain was improved and well controlled all day long. She states tonight she started having contraction type abdominal pain. She cannot think of anything that caused the start of this pain tonight. She passed flatus once this morning and then has not passed flatus since. No bowel movement since admission. She says she was drinking clears today with some nausea but no vomiting. She has been ambulating without lightheadedness or dizziness. She has been voiding without difficulty and feels she is emptying her bladder. She denies chest pain, shortness of breath, leg pain. AF, VSS Gen: NAD, appears uncomfortable as if she had a ctx Abd- Softly distended, no rebounding, no guarding, no rigidity A/P: - Possible ileus - No acute signs on abdominal exam - Afebrile and HD stable - Discussed ice chips for now - Will get KUB, CBC w/ diff, CMP - Discussed if pain not improved tomorrow will consider CTAP STROKE Vital Signs/Narrative: Vital Signs Temp Pulse Resp BP 10/05/19 19:50 98.6 F 96 16 126/89 H
--- NOTE | 2019-10-05 21:42 | RAD_ITS ---
STUDY: X-RAY - ABDOMEN/PELVIS REASON FOR EXAM: Female, 29 years old. PAIN ACROSS ABDOMEN. POST . ON 10/03/19 PER PATIENT. TECHNIQUE: Two AP supine views of the abdomen and pelvis. COMPARISON: None. FINDINGS: Normal visualized lung bases. Probable constipation. Prominent small bowel loops versus gas filled colon on the left measuring up to 5 cm could be related to ileus. There is no demonstrated free abdominal air. The visualized liver, spleen and kidneys are grossly normal in size and morphology. Normal soft tissue structures. Normal visualized osseous structures. RAD/Abdomen Single View IMPRESSION: Probable constipation. Prominent small bowel loops versus gas filled colon on the left measuring up to 5 cm could be related to ileus. Electronically Signed: Julio Stone MD at 22:39 EST Tel , Service support ,
[2019-10-05 21:46] LABS: Absolute Lymphocyte Count 2.13 X10^3/uL (0.83-4.51); Absolute Neutrophil Count 17.1 X10^3/uL (2.0-7.7); Basophil# 0.03 X10^3/uL; Basophil% 0.1 % (0-1); Eosinophil# 0.08 X10^3/uL; Eosinophils% 0.4 % (0-5); Hematocrit 33.6 % (37-47); Lymphocyte # 2.13 X10^3/ul (4.0); Lymphocyte % 10.4 % (19-41); Mean Corp Hgb Conc 32.7 g/dL (32-36); Mean Corpuscular Hgb 32.5 pg (27.0-32.0); Mean Corpuscular Volume 99.4 fL (81-99); Mean Platelet Vol. 8.7 fl (6.2-12.0); Monocyte# 0.83 X10^3/uL; Monocyte% 4.1 % (0-10); NRBC Flagged by Analyzer 0 % (0-5); Neutrophil # 17.09 X10^3/uL (2.7-7.7); Neutrophil % 83.8 % (47-70); Platelet Count 321 K/mm3 (150-450); RBC Distribution Width CV 13.8 % (11.6-14.6); RBC Distribution Width SD 50.3 fl (35.1-43.9); Red Blood Count 3.38 M/mm3 (4.2-5.4); White Blood Count 20.4 K/mm3 (4.4-11.0)
[2019-10-05 22:05] LABS: ALB/GLOB Ratio 0.5 RATIO (0.9-2.4); AST(SGOT) 26 U/L (15-37); Alanine Aminotransfer ALT/SGPT 19 U/L (13-56); Albumin, Serum 2.2 g/dL (3.2-5.0); Alkaline Phosphatase 124 U/L (45-117); Anion Gap 8 (5-15); BUN 7 mg/dL (7-18); BUN/Creat Ratio 10.6 RATIO (10-20); Calcium,Total 8.4 mg/dL (8.5-10.1); Chloride 105 mmol/L (98-107); Creatinine, Serum 0.66 mg/dL (0.55-1.02); EST Glomerular Filtration Rate 113 mL/min (>60); Est Glom Filt Rate - Afr Amer 137 mL/min (>60); Estimated Creatinine Clearance 110.56 ml/min; Globulin 4.5 g/dL (2.2-4.2); Glucose 90 mg/dL (74-106); Potassium 3.6 mmol/L (3.5-5.1); Protein, Total 6.7 g/dL (6.4-8.2); Sodium Level 138 mmol/L (136-145)
[2019-10-05] MEDS: Lactated Ringers 1,000 ML 125 ML IV (23:25)
[2019-10-06] MEDS: Ketorolac 30 MG/ML Syringe IV ×2 (00:07→10:39)
[2019-10-06] MEDS: 0.9% Saline Lock 10 ML Syringe IV (00:07)
[2019-10-06 02:10] VITALS: BP 114/77; PULSE 98; RESP 14; TEMP 36.3; O2SAT 95
[2019-10-06] MEDS: oxyCODONE 5 MG Tablet PO ×2 (02:13→16:30)
[2019-10-06] MEDS: Acetaminophen 500 MG Tablet 1000 MG PO ×2 (03:27→12:30)
[2019-10-06] MEDS: Lactated Ringers 1,000 ML 125 ML IV (06:45)
[2019-10-06 08:50] VITALS: BP 118/80; PULSE 94; RESP 16; TEMP 36.9; O2SAT 97
[2019-10-06] MEDS: Senna/Docusate Sodium 1 Tablet PO (10:45)
[2019-10-06 13:20] VITALS: BP 117/71; PULSE 87; RESP 18; TEMP 37.1; O2SAT 96
[2019-10-06 16:15] VITALS: BP 126/93; PULSE 97; RESP 16; TEMP 37.1; O2SAT 97
--- NOTE | 2019-10-06 16:20 | DCINST_ITS ---
Discharge Diet: No Restrictions Discharge Activity: May not drive while taking narcotic pain medications., May Shower May resume sexual activity in: 6 weeks Weight Bearing Status: Weight bearing as tolerated Call your doctor if your incision/area has: Continuous Slow Oozing, Sudden Increased Bleeding, Increased Pain/ Swelling, Foul Smelling Discharge, Swelling at the incision site Additional Instructions: If you experience any of the following, contact your healthcare provider. * Bleeding that soaks a pad every hour for 2 hours * Fever 100.4 or higher * Unrelieved incision or abdominal pain * Swelling, redness, discharge or bleeding from your incision or episiotomy site * Your incision begins to separate * Problems urinating (including inability to urinate or burning while urinating). * Visual changes * Severe headache * Flu-like symptoms * Pain or redness in one of both of your breasts * Pain, warmth, tenderness or swelling in your legs, especially the calf area * Frequent nausea and vomiting * Symptoms of depression or anxiety If you experience any of the following, call 911 or go to the nearest Emergency Room. * Chest pain * Problems breathing * Seizure activity * Partial or complete paralysis of a body part, slurred speech, weakness or drooping of the face, or a sudden inability to walk or hold your balance Allergies/Adverse Reactions: Allergies bupropion [From Wellbutrin] Adverse Reaction (Verified 10/02/19 17:05) Other pt reports medication gives her seizures Medications to take at Discharge Vit No.130/Iron/Folic [ Tablet] 1 tab PO DAILY 08/28/19 Acetaminophen [Tylenol] 1,000 mg PO Q8H PRN tab 10/06/19 Docusate Sodium [Colace] 100 mg PO BID PRN PRN #60 cap 10/06/19 Ibuprofen [Motrin] 600 mg PO Q6H PRN PRN tab 10/06/19 Oxycodone [Oxyir] 5 mg PO Q6H PRN PRN 3 Days #12 tab 10/06/19 The following prescriptions were given: Docusate Sodium [Colace] 100 mg PO BID PRN PRN #60 cap PRN Reason: Constipation Prescription Printed Oxycodone [Oxyir] 5 mg PO Q6H PRN PRN 3 Days #12 tab PRN Reason: Pain Score 4-10/10 Prescription Printed Follow-Up: Call to make an appointment with your doctor for an incision check in 1-2 weeks. You will also need a 6 week post- follow up appointment. Test results from this visit will be discussed in further detail at your follow- up appointment, if applicable. Primary Care Physician: Andres Crockett [Primary Care Provider] -
--- NOTE | 2019-10-06 16:21 | PCM.PN.OB ---
Patient Problems: Active and Suspected Problems (Last Updated 10/02/19 @ 17:[address] Andra Lyons) 38 weeks gestation of (Acute) Decreased movement (Acute) Non-reassuring status (Acute) Subjective: Patient reported some flatus when seen this morning. Since then she has drank prune juice & ate some solid food. Patient now reports having a BM and requests to go home. She is feeling much better. - Physical Exam Vitals/I&O's: Vital Signs Temp Pulse Resp BP Pulse Ox 98.7 F 87 18 117/71 96 10/06/19 13:20 10/06/19 13:20 10/06/19 13:20 10/06/19 13:20 10/06/19 13:20 Oxygen Delivery Method Room Air Weight: 182 lb 12.211 oz Body Mass Index (BMI) 31.4 Intake and Output for Last 24 Hours 10/04/19 10/05/19 10/06/19 23:59 23:59 23:59 Intake Total 901.67 / 901.67 916.67 / 916.67 Output Total 2100 / 2100 Balance -1198.33 / -1198.33 916.67 / 916.67 General: Alert, Oriented x3 Abdomen: Soft, Non Tender, Non-Distended - ff mid & below umb; incision - bandage c/d/i. Bowel sounds were slightly hypoactive this morning. Extremities: No Calf Tenderness Neurological: Cranial nerves II-XII grossly intact Laboratory Results 10/05/19 21:32: WBC 20.4 H, RBC 3.38 L, Hgb 11.0 L, Hct 33.6 L, MCV 99.4 H, MCH 32.5 H, MCHC 32.7, RDW Std Deviation 50.3 H, RDW Coeff of Britni 13.8, Plt Count 321, MPV 8.7, Immature Gran % (Auto) 1.200 H, Neut % (Auto) 83.8 H, Lymph % (Auto) 10.4 L, [place] % (Auto) 4.1, Eos % (Auto) 0.4, Baso % (Auto) 0.1, Absolute Neuts (auto) 17.1 H, Absolute Lymphs (auto) 2.13, Nucleated RBC % 0 10/05/19 21:32: Sodium 138, Potassium 3.6, Chloride 105, Carbon Dioxide 25.0, Anion Gap 8, BUN 7, Creatinine 0.66, Estim Creat Clear Calc 110.56, Est GFR (MDRD) Af Amer 137, Est GFR (MDRD) Non-Af 113, BUN/Creatinine Ratio 10.6, Glucose 90, Calcium 8.4 L, Total Bilirubin 0.60, AST 26, ALT 19, Alkaline Phosphatase 124 H, Total Protein 6.7, Albumin 2.2 L, Globulin 4.5 H, Albumin/Globulin Ratio 0.5 L Current Medications Acetaminophen (Tylenol) 1,000 mg PO Q8H PRN PRN Reason: Pain Score 1-3/10 Last Admin: 10/06/19 12:30 Dose: 1,000 mg Documented by: Bisacodyl (Dulcolax) 10 mg RECTAL UD PRN PRN Reason: If no BM Hydrocortisone (Hytone) 1 applic TOPICAL TID PRN PRN; Protocol PRN Reason: Discomfort Naloxone HCl 4 mg/ Dextrose 504 mls @ 0 mls/hr IV .Q0M PRN; Protocol PRN Reason: Respiratory depression Lactated Ringer's () 1,000 mls @ 125 mls/hr IV .Q8H RUDOLPH Last Admin: 10/06/19 06:45 Dose: 125 mls/hr Documented by: Ibuprofen (Motrin) 600 mg PO Q6H PRN PRN PRN Reason: Pain Score 1-3/10 Methylergonovine Maleate (Methergine) 0.2 mg IM X1 PRN PRN Reason: Uterine Atony Naloxone HCl (Narcan) 0.02 mg IV Q1M PRN PRN Reason: RR <10 and pt unresponsive Ondansetron HCl (Zofran) 4 mg IV Q4H PRN PRN PRN Reason: Nausea Oxycodone HCl (Oxyir) 5 - 10 mg PO Q4H PRN PRN PRN Reason: Pain Score 4-10/10 Last Admin: 10/06/19 02:13 Dose: 10 mg Documented by: Prochlorperazine Edisylate (Compazine Iv) 10 mg IV Q6H PRN PRN PRN Reason: NAUSEA Senna/Docusate Sodium (Senokot-S, Marleni-Colace) 0 tablet PO DAILY PRN PRN Reason: Constipation Last Admin: 10/06/19 10:45 Dose: 2 tablet Documented by: Simethicone (Mylicon) 80 mg PO PCHS PRN PRN Reason: Indigestion/stomach pain Last Admin: 10/05/19 18:28 Dose: 80 mg Documented by: Sodium Chloride () 5 - 15 ml IV UD PRN PRN Reason: SALINE FLUSH Last Admin: 10/06/19 00:07 Dose: 10 ml Documented by: Medical Necessity - Tobacco Use Smoking Status: Never smoker Assessment/Plan All Active Problems (Last Updated 10/02/19 @ 17:[address] Andra Lyons) 38 weeks gestation of (Acute) Decreased movement (Acute) Non-reassuring status (Acute) 29yo female POD#3 GI - patient has advanced her diet today & is now reports a BM. Thus patient does not have an ileus & her constipation is resolving. Heme - HDS ID - AF, no signs infection D/c home
--- NOTE | 2019-10-06 16:50 | NURSING ---
Pt had a normal, formed BM at 1430 and up to shower. Dr. Lyons in a delivery but notified after she was out of room around 1500. Order to d/c IV and she will return to unit to put in d/c orders later this pm.
== END 2019-10-06 18:05 | disposition home or self-care (01) | DRG 787 ==
PROVIDERS: Obstetrics & Gynecology; Admitting Provider Obstetrics & Gynecology; PCP Family Medicine; Referring Provider Obstetrics & Gynecology; Visit Provider Obstetrics & Gynecology
DX: O76 Abnormality in fetal heart rate and rhythm complicating labor and delivery (principal); O41.03X0 Oligohydramnios, third trimester, not applicable or unspecified; Z3A.38 38 weeks gestation of pregnancy; Z37.0 Single live birth; O36.8130 Decreased fetal movements, third trimester, not applicable or unspecified; O77.0 Labor and delivery complicated by meconium in amniotic fluid
CPT/HCPCS: 36415; 59025; 59050; 74018; 80053; 82565; 82570; 84156; 84450; 84460; 84550; 85025; 85027; 85610; 85730; 86850; 86900; 86901; 88307; 99218; J7120; A4216; G0378; J2405

== ENCOUNTER 2021-04-06 09:05 | Outpatient (CLI) | payer OTHER, SELFPAY ==
[2021-04-06 09:11] VITALS: BP 115/79; PULSE 77; TEMP 36.7
[2021-04-06 09:12] VITALS: PULSE 87; O2SAT 98
[2021-04-06 09:26] VITALS: BMI 22.8
--- NOTE | 2021-04-06 12:51 | OB.TRI.NOTE ---
HPI - General HPI Narrative SOPHY MIJARES, is a 30 F @ 26.3 weeks who presents c/o rectal bleeding and pain. denies OB concerns. pt reports h/o rectal bleeding had colonoscopy 3 yr ago was due this year but now . Maternal Data Information Final TONY: 07/10/21 Final TONY Source: LMP PFSH PFSH Medical History (Updated 04/06/21 @ 12:[address] Chloe Dias MD) Abdominal pain in female Depression Diarrhea Hematochezia Migraines Tarry stool Home Medications vit no.[id number] 1 tab PO DAILY 08/28/19 [History Last Taken 10/01/19 21:00 1 tab] acetaminophen 1,000 mg PO Q8H PRN tab 10/06/19 [Rx Last Taken Unknown] docusate sodium 100 mg PO BID PRN PRN #60 cap 10/06/19 [Rx Last Taken Unknown] ibuprofen 600 mg PO Q6H PRN PRN tab 10/06/19 [Rx Last Taken Unknown] Allergy/AdvReac Type Severity Reaction Status Date / Time bupropion [From Wellbutrin] AdvReac Other Verified 10/02/19 17:05 Family History (Updated 09/26/17 @ 13:49 by Edwige Brand) Mother No problems noted. Social History (Updated 09/27/17 @ 09:[address] Emmy Green MD) Smoking Status: Never smoker alcohol intake: never History Elective abortions Hx Para 0 Spontaneous abortions Hx # Term Pregnancies Ectopic pregnancies Hx # Pregnancies Multiple births # of living children Assessment & Plan (1) Rectal bleed: (2) Abdominal pain affecting : (3) 26 weeks gestation of : PLAN: @ 26.3 weeks- rectal bleeding 1) no OB concerns today- FHR +, not feeling contractions 2) Can go to ER or get in with GI for evaluation 3) follow up in office as scheduled 4) RN reports VE CLosed and thick.
== END 2021-04-06 09:45 | disposition home or self-care (01) ==
LOC: WPOUT 09:06 → WP 09:06
PROVIDERS: PCP Family Medicine; Visit Provider Obstetrics & Gynecology
DX: O26.892 Other specified pregnancy related conditions, second trimester (principal); K62.5 Hemorrhage of anus and rectum; R10.9 Unspecified abdominal pain; O99.352 Diseases of the nervous system complicating pregnancy, second trimester; G43.909 Migraine, unspecified, not intractable, without status migrainosus; Z3A.26 26 weeks gestation of pregnancy
CPT/HCPCS: 59025; 59050; 99218; G0378

== ENCOUNTER 2021-06-24 23:15 | Inpatient (IN) | payer OTHER, SELFPAY ==
[2021-06-24] VITALS (22 sets, daily range): BP systolic 126–152; BP diastolic 85–98; PULSE 74–96; TEMP 36.3; O2SAT 96–98; BMI 30.6
[2021-06-24 22:35] LABS: Hematocrit 37.5 % (37-47); Hemoglobin 12.4 g/dL (12.0-15.0); Mean Corp Hgb Conc 33.1 g/dL (32-36); Mean Corpuscular Hgb 32.5 pg (27.0-32.0); Mean Corpuscular Volume 98.4 fL (81-99); Mean Platelet Vol. 9.5 fl (6.2-12.0); Platelet Count 324 K/mm3 (150-450); RBC Distribution Width CV 13.2 % (11.6-14.6); RBC Distribution Width SD 47.9 fl (35.1-43.9); Red Blood Count 3.81 M/mm3 (4.2-5.4); White Blood Count 10.1 K/mm3 (4.4-11.0)
[2021-06-24 22:37] LABS: AST(SGOT) 16 U/L (15-37); Alanine Aminotransfer ALT/SGPT 19 U/L (13-56); EST Glomerular Filtration Rate 154 mL/min (>60); Est Glom Filt Rate - Afr Amer 186 mL/min (>60); Estimated Creatinine Clearance 149.39 ml/min; Uric Acid 2.5 mg/dL (2.6-6.0)
[2021-06-24 22:46] LABS: Protein:Creat Ratio 226 mg/g CRE (0-200)
[2021-06-25] VITALS (19 sets, daily range): BP systolic 107–149; BP diastolic 64–95; PULSE 72–100; RESP 16–20; TEMP 36.1–37.1; O2SAT 18–100
--- NOTE | 2021-06-25 | FALS_PTH ---
PATIENT: SOPHY MIJARES LOC: [facility] U#:[id number] AGE/SX: 31/F ROOM: WP008 RE06/24/[address]: Dr. Letha Hwang DO : 1990 BED: 1 DIS: 06/28/2021 SPEC #: [id number] RECD: 06/27/21 08:58 STATUS: ROSELYN RICHARD #: [id number] CRISTOFER: 06/25/21 00:[address]: Letha Hwang DEPT: SURGICAL PATHOLOGY RECD BY: Lex Bangura ENTERED: 06/27/21 08:58 SP TYPE: FALL TUBES OTHR DR: Dr. Andres Crockett DO Tissues: Fallopian tube Procedures: Surgery Specimen Level II HEADER OPERATION: Tubal ligation PRE-OP DIAGNOSIS: Sterilization TISSUE SUBMITTED: Fallopian tube, suture in right tube MICROSCOPIC DIAGNOSIS Right fallopian tube, salpingectomy: Complete segment of fallopian tube with no pathologic change. Left fallopian tube, salpingectomy: Complete segment of fallopian tube with no pathologic change. AM:hetal 06/28/2021 MICROSCOPIC DESCRIPTION Slides are reviewed. GROSS DESCRIPTION Received in fixative is one container labeled with the patient's name and designated bilateral fallopian tubes, suture in right tube. The specimen consists of bilateral fallopian tubes including fimbrial ends. The right fallopian tube measures 5 cm in length and 0.6 cm in diameter and the left fallopian tube measures 6.5 cm in length and 0.6 cm in diameter. Sections reveal unremarkable cut surfaces. Director Hematology sections are submitted in two cassettes as follows: 1 ? right fallopian tube, 2 ? left fallopian tube. / SJ:hetal 06/27/21 TC:4 CPT: 03581 x2
[2021-06-25] MEDS: Lactated Ringers 1,000 ML 999 ML IV (06:30)
[2021-06-25] MEDS: 0.9% Saline Lock 10 ML Syringe IV ×3 (06:30→22:25)
[2021-06-25] MEDS: Acetaminophen 500 MG Tablet 1000 MG PO ×3 (06:39→19:13)
[2021-06-25] MEDS: Lactated Ringers 1,000 ML 150 ML IV (07:36)
--- NOTE | 2021-06-25 07:36 | HP.PCM.OB_ITS ---
HPI - General General Date of Admission: 06/24/21 HPI Narrative SOPHY MIJARES, is a 31 F who presents with elevated BP. Came to the office for routine visit. At that time she reported a history of chronic headaches and a mild headache that was not outside of the normal headache for her. No visual changes. Some upper belly pain that had resolved. Some nausea as well. Her blood pressure in the office was 125/91. She was instructed to check her blood pressure a few hours later at home with a blood pressure cuff and call with results. At home her diastolic blood pressure was in the 90s, so she presented to labor and delivery for rule out preeclampsia and likely ge stational hypertension. Her headache has improved. No vision changes or upper belly pain. She is doing well. No regular contractions or vaginal bleeding or leaking of fluid. Good movement. Here on labor and delivery she has had several mild range blood pressures. Maternal Data Information TONY Calculator Estimated Delivery Date Method Current WG Current Estimate 07/10/21 LMP (Certain) 37w 6d PFSH PFS Medical History (Updated 06/25/21 @ 07:[address] Letha Hwang DO) Abdominal pain in female Anxiety Depression Diarrhea Gestational HTN Hematochezia Migraines Oligohydramnios depression Tarry stool Home Medications vit no.[id number] 1 tab PO DAILY 08/28/19 [History Last Taken 06/24/21 21:00] sertraline [Zoloft] 100 mg PO DAILY 06/24/21 [History Last Taken 06/24/21 21:00] Allergy/AdvReac Type Severity Reaction Status Date / Time bupropion [From Wellbutrin] AdvReac Other Verified 06/24/21 22:17 Family History (Updated 09/26/17 @ 13:49 by Edwige Brand) Mother No problems noted. Surgical History (Updated 06/25/21 @ 07:[address] Letha Hwang DO) History of surgery Previous section Social History (Updated 09/27/17 @ 09:[address] Emmy Green MD) Smoking Status: Never smoker alcohol intake: never History Elective abortions Hx Para 1 Spontaneous abortions Hx # Term Pregnancies Ectopic pregnancies Hx # Pregnancies Multiple births # of living children NST FHR Rate Baby A FHR Category:: Category I ROS Constitutional Constitutional: Reports as per [facility] Vital Signs Vital Signs Vital Signs: 06/24/21 22:02 06/24/21 22:07 06/24/21 22:12 Temperature 97.3 F L Temperature Source Temporal Pulse Rate 96 91 92 Respiratory Rate Blood Pressure 132/94 H Blood Pressure [BP] Blood Pressure Mean [BP] BP Systolic 132 BP Diastolic 94 Blood Pressure Source [BP] Blood Pressure Position [BP] Blood Pressure Location [BP] Pulse Ox 98 98 97 Oxygen Delivery Method 06/24/21 22:17 06/24/21 22:28 06/24/21 22:32 Temperature Temperature Source Pulse Rate 96 88 88 Respiratory Rate Blood Pressure 126/91 H 129/93 H Blood Pressure [BP] Blood Pressure Mean [BP] BP Systolic 126 129 BP Diastolic 91 93 Blood Pressure Source [BP] Blood Pressure Position [BP] Blood Pressure Location [BP] Pulse Ox 97 97 Oxygen Delivery Method 06/24/21 22:33 06/24/21 22:38 06/24/21 22:43 Temperature Temperature Source Pulse Rate 91 80 87 Respiratory Rate Blood Pressure Blood Pressure [BP] Blood Pressure Mean [BP] BP Systolic BP Diastolic Blood Pressure Source [BP] Blood Pressure Position [BP] Blood Pressure Location [BP] Pulse Ox 97 97 97 Oxygen Delivery Method 06/24/21 22:48 06/24/21 22:53 06/24/21 22:58 Temperature Temperature Source Pulse Rate 81 82 81 Respiratory Rate Blood Pressure 126/85 H Blood Pressure [BP] Blood Pressure Mean [BP] BP Systolic 126 BP Diastolic 85 Blood Pressure Source [BP] Blood Pressure Position [BP] Blood Pressure Location [BP] Pulse Ox 97 97 96 Oxygen Delivery Method 06/24/21 23:02 06/24/21 23:03 06/24/21 23:08 Temperature Temperature Source Pulse Rate 86 88 86 Respiratory Rate Blood Pressure 127/93 H Blood Pressure [BP] Blood Pressure Mean [BP] BP Systolic 127 BP Diastolic 93 Blood Pressure Source [BP] Blood Pressure Position [BP] Blood Pressure Location [BP] Pulse Ox 96 97 Oxygen Delivery Method 06/24/21 23:13 06/24/21 23:17 06/24/21 23:18 Temperature Temperature Source Pulse Rate 84 82 82 Respiratory Rate Blood Pressure 129/97 H Blood Pressure [BP] Blood Pressure Mean [BP] BP Systolic 129 BP Diastolic 97 Blood Pressure Source [BP] Blood Pressure Position [BP] Blood Pressure Location [BP] Pulse Ox 97 97 Oxygen Delivery Method 06/24/21 23:23 06/24/21 23:28 06/24/21 23:33 Temperature Temperature Source Pulse Rate 81 88 78 Respiratory Rate Blood Pressure 152/98 H Blood Pressure [BP] Blood Pressure Mean [BP] BP Systolic 152 BP Diastolic 98 Blood Pressure Source [BP] Blood Pressure Position [BP] Blood Pressure Location [BP] Pulse Ox 97 97 98 Oxygen Delivery Method 06/24/21 23:38 06/25/21 04:07 06/25/21 07:27 Temperature 96.9 F L 98.8 F Temperature Source Temporal Temporal Pulse Rate 78 77 83 Respiratory Rate 16 18 Blood Pressure 121/72 H Blood Pressure [BP] 124/87 H Blood Pressure Mean [BP] 99 BP Systolic 121 BP Diastolic 72 Blood Pressure Source [BP] Monitor Blood Pressure Position [BP] Semi-Fowlers Blood Pressure Location [BP] Right Arm Pulse Ox 97 96 96 Oxygen Delivery Method Room Air Weight Weight: 184 lb Body Mass Index (BMI) 30.6 Physical Exam Const alert and no apparent distress General Appearance: comfortable Resp normal respiratory effort GI soft to palpation and non-tender Extremity General Extremity: edema Neuro no focal motor deficits Labs Labs Labs: Blood Type A POSITIVE Antibody Screen NEGATIVE Hct 37.5 % (37-47) Hgb 12.4 g/dL (12.0-15.0) Rhogam given: No Assessment & Plan (1) 37 weeks gestation of : PLAN: Admit to labor and delivery for repeat section. Routine pr eoperative care. Ancef 2 g prior to section. Discussed risk, benefits, alternatives to repeat and patient desires to proceed. Consent signed and on chart. (2) Gestational hypertension: PLAN: Patient has had several mild range blood pressures meeting criteria for gestational hypertension. Recommend delivery given 37-week gestation. Preeclampsia labs normal admission. She has no preeclampsia symptoms this morning. Discussed importance of monitoring preeclampsia , and symptoms to notify us of. (3) History of depression: PLAN: Monitor . (4) History of section: (5) Encounter for sterilization: PLAN: Discussed risk, benefits, alternatives to a tubal ligation. She understands that sterilization is permanent and irreversible, and there is a risk of regret. She is 100% certain that she desires sterilization at the time of her section. (6) GBS bacteriuria:
[2021-06-25] MEDS: Sodium Citrate/Citric Acid 30 ML UDC PO (07:48)
[2021-06-25] MEDS: Cefazolin 2 GM in 0.9% Normal Saline 100 ML IV (08:03)
[2021-06-25] MEDS: Oxytocin 30 units/NS 500 ml 30 UNITS/500 ML IV.SOLN 167 UNITS IV (09:50)
--- NOTE | 2021-06-25 10:01 | OP.PCM_ITS ---
Problems Associated Problem List Diagnoses (1) Encounter for sterilization: (2) History of section: (3) Gestational hypertension: (4) 37 weeks gestation of : Report of Operation Date of Procedure: 06/25/21 Pre-Operative Diagnosis: 37 week gestation, gHTN, history prior section, desires permanent sterilization Post-Operative Diagnosis: As above Surgery/Procedure Performed:: Repeat section with bilateral salpingectomy Description of Surgical Findings:: Infant in vertex presentation. Clear fluid. Normal-appearing placenta with a three-vessel cord. Normal-appearing uterus and bilateral adnexa. Minimal - moderate amount of scar tissue. The fascia was significantly adhered to the rectus. The rectus muscles were adhered in the midline. Surgeon: Eri, dry yard worker: Luisa Type of Anesthesia: Spinal Special Medications: None Specimen's removed: Placenta Bilateral fallopian tubes Drains: Bond Estimated Blood Loss (mL): 1,200 Fluids Replaced: 800 cc Description of Procedure: Patient presented to the office at 37 weeks gestation with mild range blood pressures. She had a headache that resolved. Preeclampsia work-up was negative. Delivery was recommended due to persistent mild range blood pressures on labor and delivery meeting criteria for gestational hypertension at 37 weeks. Discussed risk, benefits, alternatives to a bilateral salpingectomy. Discussed risk of regret and that the procedure is permanent and irreversible. The patient was 100% certain that she desires sterilization. Patient was taken to the operating room where spinal anesthesia was found to be adequate. She was prepped and draped in the dorsal supine position with a leftward tilt. A Pfannenstiel skin incision was made with a scalpel and this was carried down to the underlying layer of fascia. Subcutaneous tissue was made hemostatic with the Bovie cautery. The fascia was incised in the midline. The fascia was extended laterally using Pace scissors and dense adhesions to the rectus muscles were noted. The rectus muscles were adhered in the midline and in the midline bluntly. The peritoneum was entered bluntly with good visualization of the bladder. The incision was extended. A bladder blade was inserted. No adhesions of the bladder to the uterus were noted. A low transv erse incision was made on the uterus with a scalpel. The membranes were ruptured with an Allis for clear fluid. The 's head was flexed and brought to the hysterotomy. The head, followed by shoulders, followed by body of the were delivered without any force or delay. A viable male infant was delivered easily and atraumatically through the hysterotomy. The cord was clamped and cut after a slight delay. The infant was handed off to the nursery staff. The placenta was removed with manual extraction. The placenta was noted to be normal-appearing. The uterus was exteriorized. The uterus was cleared of all clot and debris. The hysterotomy was closed with Vicryl in a running locked fashion. Several additional xjqvli-bf-jyqee sutures were placed along the hysterotomy for hemostasis. I confirmed with the patient that she did desire permanent sterilization, and she requested to proceed with sterilization. The left fallopian tube was grasped and followed out to the fimbriated end. Using the LigaSure device the mesosalpinx was serially cauterized and transected until reaching the level of the cornua. At the level of the cornua the left fallopian tube was transected. The left fallopian tube was removed and sent to pathology for review. Hemostasis was noted. The same was performed on the right after the right fallopian tube was followed out to the fimbriated end. The right fallopian tube was also sent to pathology for review. The uterus was placed back into the abdomen. Sherly was placed over the hysterotomy. The peritoneum was closed with Vicryl in a running fashion. The rectus muscles were noted to have several areas of bleeding, and these areas were made hemostatic with the Bovie cautery. A bjegrs-[id number]-mloya suture was placed over a area that was persistently bleeding along the right rectus, and good hemostasis was noted. The fascia was closed with stratafix in a running fashion. The subcutaneous space was irrigated and made hemostatic with the Bovie cautery. The subcutaneous space was reapproximated with Vicryl in a running fashion. The skin was closed with Monocryl in a running fashion. A dressing was placed. Instrument, sponge, needle counts were correct. The patient was taken to the recovery in stable condition. Apgars 8,9 Grafts/Implants Used: None Procedure Start Time: 08:27 Procedure Stop Time: 09:47 Complications None Admit VTE Documentation VTE Present on Admission: No VTE Mechan Device Prophylaxis: SCD's VTE Pharm Prophylaxis ordered?: Yes
[2021-06-25] MEDS: Ketorolac 30 MG/ML Syringe IV ×3 (10:03→22:24)
[2021-06-25 12:26] LABS: Pathology Specimen OB SEE PATHOLOGY REPORT
[2021-06-25] MEDS: Lactated Ringers 1,000 ML 100 ML IV (12:56)
[2021-06-25] MEDS: DiphenhydrAMINE 25 MG Capsule PO (17:47)
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
--- NOTE | 2021-06-25 19:43 | NURSING ---
Kellie has been very, very tearful after finding out was going to be transferred, partially due to it being very unexpected. Request for nursing to call her mom to explain what is going on and can get people praying. Feels questions have been answered, glad for care for infant, just trying to process him not being able to be back in room.
[2021-06-25] MEDS: Senna/Docusate Sodium 1 Tablet PO (22:23)
[2021-06-25] MEDS: Enoxaparin 40 MG/0.4 ML Syringe SC (22:24)
[2021-06-25] MEDS: Sertraline 100 MG Tablet PO (22:24)
[2021-06-26 00:50] VITALS: BP 96/56; PULSE 82; RESP 18; TEMP 36.2; O2SAT 95
[2021-06-26] MEDS: Acetaminophen 500 MG Tablet 1000 MG PO ×4 (01:01→19:13)
[2021-06-26] MEDS: Ketorolac 30 MG/ML Syringe IV (03:58)
[2021-06-26] MEDS: 0.9% Saline Lock 10 ML Syringe IV (04:00)
[2021-06-26 04:15] VITALS: BP 121/85; PULSE 87; RESP 16; TEMP 36.4; O2SAT 97
[2021-06-26 04:21] LABS: Hematocrit 31.7 % (37-47); Hemoglobin 10.5 g/dL (12.0-15.0); Mean Corp Hgb Conc 33.1 g/dL (32-36); Mean Corpuscular Volume 99.7 fL (81-99); Platelet Count 294 K/mm3 (150-450); RBC Distribution Width CV 13.5 % (11.6-14.6); RBC Distribution Width SD 49.1 fl (35.1-43.9); Red Blood Count 3.18 M/mm3 (4.2-5.4); White Blood Count 17.9 K/mm3 (4.4-11.0)
[2021-06-26 09:00] VITALS: BP 116/83; PULSE 74; RESP 18; TEMP 36.7; O2SAT 95
[2021-06-26] MEDS: Ibuprofen 600 MG Tablet PO ×3 (10:15→22:56)
[2021-06-26 13:06] VITALS: BP 124/81; PULSE 99; RESP 18; TEMP 36.3; O2SAT 95
--- NOTE | 2021-06-26 15:48 | PN.OBGYN_ITS ---
Subjective Subjective Patient is doing well. Pain is well controlled. Tolerating regular diet without nausea or vomiting. No lightheadedness or dizziness. She is ambulating and voiding without difficulty. Passing gas. Lochia is normal. Breast-feeding is going well. She has a mild RIVER that is 2/10. No vision changes. No upper abd p ain. Objective Data Objective Data Vital Signs: Vital Signs Temp Pulse Resp BP Pulse Ox 97.4 F L 99 18 124/81 H 95 06/26/21 13:06 06/26/21 13:06 06/26/21 13:06 06/26/21 13:06 06/26/21 13:06 Oxygen Delivery Method Room Air Weight: 184 lb Body Mass Index (BMI) 30.6 Intake & Output: Intake and Output for Last 24 Hours 06/24/21 06/25/21 06/26/21 23:59 23:59 23:59 Intake Total 3074.17 / 3074.17 Output Total 825 / 1025 200 / 200 Balance 2249.17 / 2049.17 -200 / -200 Lab / Micro Data Result Diagrams: 06/26/21 04:10 06/24/21 22:10 Labs: Laboratory Results - last 24 hr 06/26/21 04:10: WBC 17.9 H, RBC 3.18 L, Hgb 10.5 L, Hct 31.7 L, MCV 99.7 H, MCH 33.0 H, MCHC 33.1, RDW Std Deviation 49.1 H, RDW Coeff of Britni 13.5, Plt Count 294, MPV 9.0 Micro: Microbiology 06/24/21 23:50 Nasal Secretion SARS-CoV-2 Antigen (Rapid) - Final Physical Exam Const alert and no apparent distress General Appearance: cooperative and comfortable Resp normal respiratory effort GI soft to palpation GI Narrative: Minimal soft distension, ATTP, no rebounding, no guarding, no rigidity, dressing in place Extremity no calf tenderness Extremity Narrative: 1+ pitting edema Assessment & Plan (1) Delivery by section: PLAN: Pt doing well. VSS. Hgb 10 post op. Pain well controlled. Baby in special care nursery. is going well. Routine post op care. Contin ue to monitor for pre eclampsia. BP's normal. No concern for pre eclampsia at this time. (2) History of depression: PLAN: Continue Zoloft.
[2021-06-26 15:55] VITALS: BP 129/86; PULSE 98; RESP 20; TEMP 36.2; O2SAT 96
--- NOTE | 2021-06-26 18:50 | NURSING ---
Kellie has been cheerful and optimistic today. Was very, very upset once finding out that would not be back out to her room with transfer to special care yesterday evening. Very tearful, but consolable with info. Today, she has been doing well pumping, been going over to participate in feeds, has been moving well. Was able to go outside today and see her mom and daughter and was very cheerful after that, stating I really needed that. remains in room and is very supportive. Kellie is pumping around the clock after going to [facility] for feeds. Has talked with some other moms who have recently had babes in [facility] that have done well, and did well, which made her feel better too.
[2021-06-26] MEDS: Senna/Docusate Sodium 1 Tablet PO (19:13)
[2021-06-26 19:40] VITALS: BP 127/90; PULSE 89; RESP 16; TEMP 37.1; O2SAT 97
[2021-06-26] MEDS: Enoxaparin 40 MG/0.4 ML Syringe SC (22:56)
[2021-06-26] MEDS: Sertraline 100 MG Tablet PO (22:56)
[2021-06-27 02:25] VITALS: BP 109/62; PULSE 62; RESP 16; TEMP 36.7; O2SAT 98
[2021-06-27] MEDS: Acetaminophen 500 MG Tablet 1000 MG PO ×4 (02:25→19:40)
[2021-06-27] MEDS: Ibuprofen 600 MG Tablet PO ×4 (03:48→23:19)
[2021-06-27] MEDS: oxyCODONE 5 MG Tablet PO (05:57)
[2021-06-27 07:51] VITALS: BP 117/74; PULSE 85; RESP 16; TEMP 36.2; O2SAT 94
[2021-06-27] MEDS: Senna/Docusate Sodium 1 Tablet PO (09:53)
[2021-06-27 15:28] VITALS: BP 125/85; PULSE 97; RESP 16; TEMP 36.6; O2SAT 98
--- NOTE | 2021-06-27 16:27 | PN.OBGYN_ITS ---
Subjective Subjective Doing well per patient and nursing staff. Ambulating and taking PO without difficulty. Voiding and passing flatus. Pain controlled. , services for assistance. Denies headache, visual changes, chest pain, shortness of breath, leg pain or increased bleeding. Lochia normal. Baby in special care nursery Objective Data Objective Data Vital Signs: Vital Signs Temp Pulse Resp BP Pulse Ox 97.8 F 97 16 125/85 H 98 06/27/21 15:28 06/27/21 15:28 06/27/21 15:28 06/27/21 15:28 06/27/21 15:28 Oxygen Delivery Method Room Air Weight: 184 lb Body Mass Index (BMI) 30.6 Intake & Output: Intake and Output for Last 24 Hours 06/25/21 06/26/21 06/27/21 23:59 23:59 23:59 Intake Total 3074.17 / 3074.17 Output Total 825 / 1025 200 / 200 Balance 2249.17 / 2049.17 -200 / -200 Lab / Micro Data Result Diagrams: 06/26/21 04:10 06/24/21 22:10 Micro: Microbiology 06/24/21 23:50 Nasal Secretion SARS-CoV-2 Antigen (Rapid) - Final ROS Constitutional Constitutional: Reports systems reviewed and no addt'l complaints, except as documented; Denies headache(s) Eyes Eyes: Denies acute decrease in peripheral vision, blurry vision or change in vision ENT HEENT: Reports systems reviewed and no addt'l complaints, except as documented Cardiovascular Cardiovascular: Denies chest pain or dizziness Respiratory/Chest Respiratory/Chest: Denies cough, dyspnea, dyspnea on exertion, shortness of adrianna ath at rest or shortness of breath with exertion Gastrointestinal Gastrointestinal: Denies abdominal pain, diarrhea, nausea or vomiting Genitourinary Genitourinary: Denies abdominal discomfort Musculoskeletal Musculoskeletal: Denies limited range of motion Integumentary Integumentary: Reports systems reviewed and no addt'l complaints, except as documented Neurologic Neurologic: Reports systems reviewed and no addt'l complaints, except as documented Psychiatric Psychiatric: Reports systems reviewed and no addt'l complaints, except as documented Endocrine Endocrinology: Reports systems reviewed and no addt'l complaints, except as documented Hematologic/Lymphatic Hematologic/Lymphatic: Reports systems reviewed and no addt'l complaints, except as documented Allergic/Immunologic Allergic/Immunologic: Reports systems reviewed and no addt'l complaints, except as documented Physical Exam Const alert and oriented x3 General Appearance: cooperative Orientation / Consciousness: awake, oriented to person, oriented to place and oriented to time Exam Limitations: no limitations HEENT normocephalic Head and Scalp: normal to inspection, normocephalic and atraumatic Face and Sinus: normal facial exam Eyes General Eye: normal appearance of both eyes Neck full ROM Chest Chest: symmetrical chest wall rise Resp normal respiratory effort and normal air movement Auscultation: clear to auscultation bilaterally Cardio regular rate, regular rhythm, S1 normal heart sound, S2 normal heart sound, no murmurs, no rub, no gallops and no clicks GI normal to inspection, nondistended, normoactive bowel sounds and non-tender appearance of the vagina normal Narrative: Fundus firm 2 below U. Dressing dry and intact. Bladder / Kidney Exam: no CVA tenderness Back/Spine normal ROM Extremity normal to inspection and full ROM Skin no rashes or lesions noted Neuro oriented x3, CN's II-XII intact bilaterally and moves all extremities Sensorium / Orientation: awake, alert and oriented to person Motor Exam: clonus absent Deep Tendon Reflexes: Rt Patellar (L4): 2+ and Lt Patellar (L4): 2+ Assessment & Plan (1) Delivery by section: (2) Encounter for sterilization: PLAN: 1) PP care 2) Pain management 3) support 4) Vitals and BP stable, will continue to monitor. No signs of Preeclampsia 5) Hgb stable, asymptomatic 6) Planning D/C home tomorrow.
[2021-06-27 19:39] VITALS: BP 130/91; PULSE 101; RESP 18; TEMP 36.6
[2021-06-27] MEDS: Sertraline 100 MG Tablet PO (23:19)
[2021-06-27] MEDS: Enoxaparin 40 MG/0.4 ML Syringe SC (23:19)
[2021-06-28 01:55] VITALS: BP 132/90; PULSE 89; RESP 20; TEMP 36.4
[2021-06-28] MEDS: Acetaminophen 500 MG Tablet 1000 MG PO ×3 (01:58→14:12)
[2021-06-28] MEDS: Ibuprofen 600 MG Tablet PO ×3 (04:56→16:05)
[2021-06-28 08:12] VITALS: BP 130/76; PULSE 86; RESP 16; TEMP 36.4; O2SAT 95
--- NOTE | 2021-06-28 08:45 | PCM.PN.OB ---
Subjective Subjective Pain well. Average lochia. Has had a bowel movement. Denies headache or visual changes. Objective Data Objective Data Vital Signs: Vital Signs Temp Pulse Resp BP Pulse Ox 97.6 F L 86 16 130/76 H 95 06/28/21 08:12 06/28/21 08:12 06/28/21 08:12 06/28/21 08:12 06/28/21 08:12 Oxygen Delivery Method Room Air Weight: 83.461 kg Body Mass Index (BMI) 30.6 Intake & Output: Intake and Output for Last 24 Hours 06/26/21 06/27/21 06/28/21 23:59 23:59 23:59 Output Total 200 / 200 Balance -200 / -200 Lab / Micro Data Result Diagrams: 06/26/21 04:10 06/24/21 22:10 Micro: Microbiology 06/24/21 23:50 Nasal Secretion SARS-CoV-2 Antigen (Rapid) - Final Physical Exam Const alert General Appearance: cooperative GI GI Narrative: soft, moderate distention, fundus firm, appropriately tender. Abdominal bandage clean dry and intact Assessment & Plan (1) Delivery by section: PLAN: Postoperative day #3 status post repeat section. Patient is doing well. is in special care nursery for low blood sugars. Working on breast-feeding. Patient is ready for discharge home. Reviewed discharge instructions. Declines need for discharge prescriptions. Follow-up in the office in 3-7 days for postop check. Call if severe blood pressures or signs of preeclampsia. (2) Encounter for sterilization: (3) Gestational hypertension: QUALIFIERS: Trimester: third trimester Qualified Code(s): O13.3 - Gestational [-induced] hypertension without significant proteinuria, third trimester
--- NOTE | 2021-06-28 08:47 | PCM.DC.SUM ---
Providers Date of Admission: 06/24/21 Primary Care Physician: Dr. Andres Crockett DO Reason For Visit: REPEAT CSECTION Diagnosis Discharge Diagnosis (1) Delivery by section: Status: Acute (2) Encounter for sterilization: Status: Acute Code(s): Z30.2 - Encounter for sterilization (3) Gestational hypertension: Status: Acute Code(s): O13.9 - Gestational [-induced] hypertension without significant proteinuria, unspecified trimester Qualifiers: Trimester: third trimester Qualified Code(s): O13.3 - Gestational [-induced] hypertension without significant proteinuria, third trimester Medications at Discharge Home Medications vit no.[id number] 1 tab PO DAILY 08/28/19 sertraline [Zoloft] 100 mg PO DAILY 06/24/21 Hospital Course Operations - (Repeat low transverse section with bilateral salpingectomy performed on 06/25/2021.) Procedures None Summary of Care Provided Hospital Course: 31-year-old multigravida female who had a previous section presented for repeat section due to gestational hypertension. She also desired sterilization. The repeat section and bilateral salpingectomy were performed on 06/25/2021. By postoperative day #3 she was ambulating, urinating tolerating regular diet without difficulty. She had no symptoms of preeclampsia. Her blood pressures were stable. She was discharged home with routine instructions. She declined prescriptions. Pain was well controlled with ibuprofen and acetaminophen. She is to follow-up in the office in 3 to 7 days in room to move the bandage in 2 to 3 days. Patient states understanding of plan. Weight / BMI Weight Weight: 83.461 kg Body Mass Index (BMI) 30.6 ABG / Lab / Microbiology Data Result Diagrams: 06/26/21 04:10 06/24/21 22:10 Microbiology: Microbiology 06/24/21 23:50 Nasal Secretion SARS-CoV-2 Antigen (Rapid) - Final D/C Instructions Discharge Diet: No restrictions May resume sexual activity in: 4-6 weeks Lifting Restrictions: 20 pounds Additional Activity Instructions: Nothing in the vagina for 4-6 weeks. You may return to work/school in 6 weeks. Call your doctor if your incision/area has: Continuous Slow Oozing, Sudden Increased Bleeding, Increased Pain/ Swelling, Increased Redness and Foul Smelling Discharge Call your doctor if you observe: Fever of 101 or Higher and Using more than 1 pad per hour (for 2 hours) Suture Line Care: Avoid Pulling/Pushing and Avoid Pinching/Bending Cleanse incision/area with: Keep Dressing Clean & Dry Please Follow Up With: Yojana Henry MD When: Call to make an appointment for an incision check in 1-2 [phone]. You will need a post check in 6 weeks. Meaningful Use Info Meaningful Use Diagnoses (Choose all that apply): None applicable Discharge Plan Admission Admit Date/Time: 06/24/21 23:15 Primary Reason for Your Visit: delivery Attending Provider: Letha Hwang Primary Care Provider: Andres Crockett Discharge Orders/Prescriptions Prescriptions: Continued vit no.[id number] 1 EACH tablet 1 tab PO DAILY RF: 0 sertraline [Zoloft] 100 mg Tablet 100 mg PO DAILY RF: 0 Referrals / Follow Up: Andres Crockett DO [Primary Care Provider] - Disposition Disposition (needs filled in before D/C Order can be placed): Home, Self Care
[2021-06-28 09:25] VITALS: BP 134/94; RESP 16; TEMP 36.5; O2SAT 94
[2021-06-28 10:31] VITALS: BP 116/81
[2021-06-28] MEDS: Senna/Docusate Sodium 1 Tablet PO (14:12)
[2021-06-28 14:21] VITALS: BP 120/80; RESP 16; TEMP 36.3
== END 2021-06-28 18:15 | disposition home or self-care (01) | DRG 785 ==
LOC: WPOUT 23:21 → WP 23:21
PROVIDERS: Obstetrics & Gynecology; Admitting Provider Obstetrics & Gynecology; PCP Family Medicine; Visit Provider Obstetrics & Gynecology
DX: O13.4 Gestational [pregnancy-induced] hypertension without significant proteinuria, complicating childbirth (principal); O99.344 Other mental disorders complicating childbirth; O34.211 Maternal care for low transverse scar from previous cesarean delivery; O99.824 Streptococcus B carrier state complicating childbirth; Z3A.37 37 weeks gestation of pregnancy; Z37.0 Single live birth; Z30.2 Encounter for sterilization; Z87.59 Personal history of other complications of pregnancy, childbirth and the puerperium
CPT/HCPCS: 59025; 59050; 82565; 82570; 84156; 84450; 84460; 84550; 85027; 86850; 86900; 86901; 87426; 88302; 99218; J7120; A4216; G0378; J2405

== ENCOUNTER 2021-08-03 08:26 | Day surgery (SDC) | payer OTHER, SELFPAY ==
--- NOTE | 2021-08-03 08:42 | HP.PCM_ITS ---
HPI - General HPI Narrative SOPHY MIJARES, is a 31 F who presents for follow-up colonoscopy due to history of polyps?tubular adenoma at the rectum removed with saline lift and snare in October 2017. Patient was recommended come back in 3 years however patient patient was at the time. She just delivered a month ago. Patient states she has bowel movements at least about every 2 days, denies any blood. Patient denies any chronic abdominal pain/nausea/vomiting/reflux since . [facility] Medical History (Updated 08/03/21 @ 09:[address] Emmy Green MD) Abdominal pain in female Anxiety Depression Diarrhea Gestational HTN Gestational hypertension Hematochezia History of stress test Migraine headache Migraines Non-smoker Oligohydramnios depression Seizures Tarry stool Wears glasses Home Medications vit no.[id number] 1 tab PO DAILY 08/28/19 [History Last Taken 06/24/21 21:00] sertraline [Zoloft] 100 mg PO DAILY 06/24/21 [History Last Taken 06/24/21 21:00] Allergy/AdvReac Type Severity Reaction Status Date / Time bupropion [From Wellbutrin] AdvReac Other Verified 08/03/21 09:04 Family History (Updated 09/26/17 @ 13:49 by Edwige Brand) Mother No problems noted. Surgical History (Updated 08/02/21 @ 11:33 by Neela Sykes) Delivery by section History of surgery Previous section Social History (Updated 09/27/17 @ 09:[address] Emmy Green MD) Smoking Status: Never smoker alcohol intake: never Past Medical/Surgical History Planned Operation Planned Operative Procedure/s: CSCOPE OPEN ACCESS S.O.S: No Previous Hospitalizations/Surgeries HX Hospitalizations: No Any Problems With Anesthesia: No You/Your Family Experience Fever (Hyperthermia) With Anes: No Cholinesterase deficiency: No Cardiovascular Hx Chest Pain within Last 2 months: No Hx of Irregular Heartbeat and/or Afib: Yes (irreg) Hx Heart Attack: No Hx Congestive Heart Failure: No Hx Rheumatic Fever: No Hx Hypertension: No Hx Internal Defibrillator: No Hx Pacemaker: No Hx Cardiac Catheterization: No Hx Cardiac Surgery/Stents/Etc.: No Hx Stress Test: No Hx Pain in Legs when Walking/Leg Cramps: No Respiratory Chronic Cough: No HX of Shortness of Breath: No Hoarseness: No Hx Chronic Obstructive Pulmonary Disease (COPD): No Hx Asthma: No Hx Emphysema: No Hx Sleep Apnea: No Hx Respiratory Tract Infection/Cold (presently): No Do You Snore Loudly (louder than talking or can be heard): No Do You Often Feel Tired/ Fatigued/ Sleepy Dring Daytime?: No Has Anyone Observed You Stop Breathing During Sleep?: No Result (for STOP score): Negative Hx Smoking: No Smoking Status: Never smoker Gastrointestinal Hx Gastroesophageal Reflux: No Hx Gastrointestinal Disorders: Yes (ibs) Hx Gastrointestinal Bleed: No Hx Ulcer: No Hx Hiatal Hernia: No Difficulty Chewing/Swallowing: No Special diet followed at home: No Hx Unplanned Weight Loss of 20#: No HX Unplanned Weight Gain of 20#: No Neurological Hx Seizures: Yes (LST SEIZURE 2 YEARS AGO) HX Syncope/Blackout Spells/Unconsciousness: No Hx Transient Ischemic Attacks (TIA): No Hx Multiple Sclerosis: No Hx Parkinson's Disease: No Hx Head/Neck Injury: No Hx Headaches: Yes (migraine) Hx Back Injury/Pain: Yes (GETS BACK SPASMS) Recent Onset of Speech Difficulty: No Restless Legs: No Does patient have nerve stimulator: No Blood Disorder Hx Leukemia: No Bleeding Tendencies: No Hx Deep Vein Thrombosis: No Hx High Cholesterol: No Blood Transmitted Disease: No Hx Hepatitis: No Hx Cirrhosis: No Hx Anemia: No Hx Blood Disorders: No Reproduction : No Is Patient Lactating: No Hx Hysterectomy: No Hx Tubal Ligation: No Are You Post Menopause: No Genitourinary Hx Renal Disease: No (kidney infection 1 week ago/resolved at this time) Musculoskeletal Hx Arthritis: No Hx Rheumatoid Arthritis: No Hx Gout: No Recent Onset of an Orthopedic Problem: No Endocrine Hx Diabetes: No Thyroid Disease: No Hx Steroid Therapy: No Psycho/Social Hx Substance Use: No Hx Alcohol Use: No Hx Anxiety: Yes Hx Depression: Yes Mental Illness: No Hx Dementia: No Miscellaneous Hx Cancer: No Recent Exposure to Contagious Disease: No Hx of C-Diff: No Any Loose Teeth: No Allergies bupropion [From Wellbutrin] Adverse Reaction (Verified 08/03/21 09:04) Other pt reports medication gives her seizures Discharge Is Pt Admitted From a [place] [facility], or a Penitentiary: No After D/C, Where Do you Plan to Go: Return Home Physical Exam Const alert, oriented x3 and no apparent distress HEENT normocephalic and head/scalp atraumatic Resp normal respiratory effort Cardio regular rate GI soft to palpation and non-tender; Negative for non-distended Palpation: Negative for guarding Extremity no clubbing, cyanosis or edema Neuro CN's II-XII intact bilaterally Psych mental status grossly normal Assessment & Plan Assessment/Plan (1) Hx of colonic polyp: Procedure Criteria Type of Procedure Procedure Type: Elective Elective Risks - COVID COVID Risk Discussion: The surgeon/proceduralist and patient have discussed in detail the risk of exposure to and/or potential harm posed by the COVID-19 virus with having a surgery/procedure at this time versus the risk of delaying the surgery/procedure. It is not possible to know either the risk of delaying the surgery or procedure or chance of getting an infection with perfect accuracy, but a joint decision was made between the patient and the surgeon/proceduralist to proceed at this time with the scheduled surgery/procedure as indicated on the consent form. Surgery Risks - Colonoscopy Risks Include but are not Limited To: Risks include but are not limited to: Bleeding, perforation requiring further surgery, inability to complete colonoscopy requiring barium enema.
[2021-08-03 09:04] VITALS: BP 117/75; PULSE 78; RESP 16; TEMP 36.5; O2SAT 99; BMI 25.8
[2021-08-03] MEDS: Lactated Ringers 1,000 ML 15 ML IV (09:20)
--- NOTE | 2021-08-03 09:59 | OP.CCLET_ITS ---
08/03/2021 Andres Crockett Re : Colonoscopy procedure for Kellie Delatorre Dear Bon This procedure was performed on Tuesday, August 03, 2021. My impressions and recommendations are as follows: Impressions : - The entire examined colon is normal on direct and retroflexion views. - No specimens collected. Recommendations : - Discharge patient to home. - Resume previous diet. - Continue present medications. - Repeat colonoscopy in 10 years for surveillance. My findings are described in the full procedure note, which is enclosed. If I can be of further assistance, please feel free to contact me at Doctor phone number(s): , Work: . Sincerely, MD Emmy Cotton MD 08/03/2021 9:59:10 AM This report has been signed electronically.
--- NOTE | 2021-08-03 09:59 | OP.COLON_ITS ---
Patient Name: Kellie Delatorre Procedure Date: 08/03/2021 9:25 AM Date of : 1990 Age: 31 Procedure: Colonoscopy Indications: Surveillance: Personal history of adenomatous polyps on last colonoscopy 3 years ago Providers: Emmy Green MD Medicines: Monitored Anesthesia Care Patient Profile: This is a 31 year old female. Last Colonoscopy: October 2017. Complications: No immediate complications. Procedure: Pre-Anesthesia Assessment: - Prior to the procedure, a History and Physical was performed, and patient medications and allergies were reviewed. The patient's tolerance of previous anesthesia was also reviewed. The risks and benefits of the procedure and the sedation options and risks were discussed with the patient. All questions were answered, and informed consent was obtained. Prior Anticoagulants: The patient has taken no previous anticoagulant or antiplatelet agents. ASA Grade Assessment: Per anesthesia. After reviewing the risks and benefits, the patient was deemed in satisfactory condition to undergo the procedure. After I obtained informed consent, the scope was passed under direct vision. Throughout the procedure, the patient's blood pressure, pulse, and oxygen saturations were monitored continuously. The pediatric colonoscope was introduced through the anus and advanced to the cecum, identified by appendiceal orifice and ileocecal valve. The colonoscopy was performed without difficulty. The patient tolerated the procedure well. The quality of the bowel preparation was good. Scope In: 9:40:06 AM Scope Withdrawal Time 0 hours 9 minutes 34 seconds Scope Out: 9:55:12 AM Total Procedure Duration Time 0 hours 15 minutes 6 seconds Findings: The perianal and digital rectal examinations were normal. The entire examined colon appeared normal on direct and retroflexion views. Impression: - The entire examined colon is normal on direct and retroflexion views. - No specimens collected. Recommendation: - Discharge patient to home. - Resume previous diet. - Continue present medications. - Repeat colonoscopy in 10 years for surveillance. Procedure Code(s): --- Professional --- G0105, PT, Colorectal cancer screening; colonoscopy on individual at high risk Diagnosis Code(s): --- Professional --- Z86.010, Personal history of colonic polyps CPT copyright 2017 [employer]. All rights reserved. The codes documented in this report are preliminary and upon per diem physical therapist assistant review may be revised to meet current compliance requirements. MD Emmy Cotton MD 08/03/2021 9:59:10 AM This report has been signed electronically. Number of Addenda: 0 Note Initiated On: 08/03/2021 9:25 AM
[2021-08-03 10:00] VITALS: BP 100/59; BP 117/75; PULSE 70; RESP 18; TEMP 35.9; O2SAT 100
[2021-08-03 10:05] VITALS: BP 117/75; BP 89/63; PULSE 63; RESP 16; O2SAT 98
[2021-08-03 10:10] VITALS: BP 117/75; BP 91/67; PULSE 58; RESP 16; O2SAT 96
[2021-08-03 10:12] VITALS: BP 117/75; BP 97/62; PULSE 56; RESP 16; TEMP 35.8; O2SAT 100
[2021-08-03 10:30] VITALS: BP 117/75
== END 2021-08-03 10:57 | disposition home or self-care (01) ==
LOC: EN 08:32 → AC 08:35
PROVIDERS: PCP Family Medicine; Referring Provider Family Medicine; Visit Provider Surgery
PROC: 0DJD8ZZ Inspection of Lower Intestinal Tract, Via Natural or Artificial Opening Endoscopic (ICD-10-PCS; CPT 45378; principal; 2021-08-03 09:40)
DX: Z86.010 Personal history of colon polyps (principal); F41.9 Anxiety disorder, unspecified; F32.A Depression, unspecified; Z79.899 Other long term (current) drug therapy
CPT/HCPCS: 45378; 87426; J7120; J2405

== ENCOUNTER 2025-05-31 19:38 | Emergency (ER) | payer OTHER, SELFPAY ==
[2025-05-31 19:38] VITALS: BP 112/88; PULSE 88; RESP 18; TEMP 36.9; O2SAT 99; BMI 24.5
--- OUTSIDE RECORDS SUMMARY | 2025-05-31 20:16 | XMS RPT_ITS | CCD ---
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 tabletRfl: 0 Prescriptions as of 06/30/2024 - metroNIDAZOLE (FLAGYL) 500 mg tablet Take 1 tablet by mouth two times a day for 7 days. - L.acidophilus-L.rhamno brittanie (FLORAJEN WOMEN) 15 billion cell capsule Take 1 capsule by mouth once daily. - sertraline (ZOLOFT) 100 mg tablet Take 1 tablet by mouth once daily for 5 days. - Csqtgotv-Oa-Csv-Fe-FA tab Take 1 tablet by mouth once daily. - famotidine (PEPCID) 20 mg tablet Take 1 tablet by mouth twice daily. - VITAMIN PLUS LOW IRON 27 mg iron- 1 mg take 1 tablet by mouth once daily - acetaminophen (TYLENOL) 325 mg tablet Take 650 mg by mouth every 6 hours as needed. Problem List As Of Date 06/30/2024 Noted Resolved Patient travels [Z78.9] 03/03/2019 12/28/2020 History of depression [Z86.59] 03/03/2019 Nausea and vomiting during [O21.9] 03/03/2019 Family history of Marfan syndrome [Z82.79] 03/03/2019 Family history of spina bifida [Z82.79] 03/03/2019 Breech presentation [O32.1XX0] 08/28/2019 10/17/2019 with history of section, ant*11/25/2020 History of COVID-19 [Z86.16] 11/25/2020 Positive GBS test [B95.1] 12/01/2020 12/01/2020 GBS bacteriuria [R82.71] 12/01/2020 Supervision of high risk in second tr*12/28/2020 Encounter for sterilization [Z30.2] 05/30/2021 COVID-19 vaccination declined [Z28.21] 06/01/2021 Decreased movements in third trimester [O*06/01/2021 Prescriptions ordered this encounter Disp Refills Start End METRONIDAZOLE 500 MG TABLET 14 t* 0 06/30/2024 07/07/2024 Route: ORAL Sig: Take 1 tablet by mouth two times a day for 7 days. Encounter Status:Closed by ARA HWANG on 06/30/24 Normal [facility] BACTERIAL VAGINOSIS NAATon 1 08-26-2023 Lactobacillus crispatus+gasseri+j ensenii + Gardnerella vaginalis + Atopobium vaginae rRNA JENARO+probe Ql (Vag fld) Positive Abnormal Negative for bacterial vaginosis [facility] Comment on above: Order Comment: Speci men Type: SWAB Ordering Facility: [facility] Address: [address] [place] [address] Performed By: #### C VTV, BVAMP #### [facility] CLIA [id number] [address] [place] [address] [place] AMINAH/TRICHOMONAS NAATon 1 08-26-2023 C. glabrata RNA EJNARO+probe Ql (Vag fld) Negative Normal Negative for Aminah glabrata [facility] Comment on above: Order Comment: Speci men Type: SWAB Ordering Facility: [facility] Address: [address] [place] [address] Performed By: #### C VTV, BVAMP #### [facility] CLIA [id number] [address] [place] [address] [place] Aminah sp DNA JENARO+probe Ql (Vag fld) Negative Normal Negative for Aminah species [facility] Comment on above: Order Comment: Speci men Type: SWAB Ordering Facility: [facility] Address: [address] [place] [address] Performed By: #### C VTV, BVAMP #### [facility] CLIA [id number] [address] [place] [address] [place] T. vaginalis DNA JENARO+probe Ql (Unsp spec) Negative Normal Negative for Trichomonas vaginalis by amplification [facility] Comment on above: Order Comment: Speci men Type: SWAB Ordering Facility: [facility] Address: [address] [place] [address] Performed By: #### C VTV, BVAMP #### [facility] CLIA [id number] [address] [place] [address] OF [facility] CNOVon 06-26-2024 CNOV Office Visit (OBGYWM ) KELLIE MIJARES ([id number]) 1990 F Date Time Provider Department 06/26/24 4:00 PM ARA HWANG OBGYWM During your visit today, we recorded the following information about you: Blood pressure Weight Height Last Period 10060 66.3 kg 1.626 m 06/12/24 Ara Hwang MD 06/27/2024 9:07 AM Signed Closing Manager offered: Patient declines. Kellie is a 34 year old who presents for an annual gynecologic exam with complaints, heavy bleeding and bad cramps . Menses: cycle length unknown but she reports regular, monthly menstrual cycles. Bleeding heavy with clotting for 3 days, and then light 3-4 days. 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 History Comments: Sexual Activity: Yes; Male Contraception: Condom, Tubal Ligation PAST MEDICAL HISTORY Diagnosis Date depression Fracture of elbow Left Gestational hypertension, third trimester IC (interstitial cystitis) depression Seizure (HCC) with use of wellbutrin PAST SURGICAL HISTORY Procedure Laterality Date DELIVERY ONLY 10/03/2019 C/S low transverse DELIVERY ONLY 06/25/2021 [facility] COLONOSCOPY PAST SURGICAL HISTORY OF wisdom teeeth SALPINGECTOMY Bilateral 06/25/2021 FAMILY HISTORY Problem Relation Age of Onset No Known Problems Mother No Known Problems Father No Known Problems Brother No Known Problems Brother Depression Maternal Grandmother Prostate Cancer Maternal Grandfather Breast Cancer Paternal Grandmother Heart Paternal Grandmother Heart Paternal Grandfather Breast Cancer Maternal Aunt Great Aunt No Known Problems Daughter SOCIAL HISTORY Social History Tobacco Use Smoking status: Never Smokeless tobacco: Never Vaping Use Vaping status: Never Used Substance Use Topics Alcohol use: No Drug use: No REVIEW OF SYSTEMS Abdomen: No abdominal pain, nausea, vomiting, diarrhea, or constipation. No bloating, early satiety, indigestion, or increased flatulence. Bladder: No dysuria, gross hematuria, urinary frequency, urinary urgency, or incontinence. Breast: No breast lumps, nipple d/c, overlying skin changes, redness or skin retraction. Allergies and current medication updated:Yes SENSITIVE EXAM: The sensitive examination was discussed with the Patient or Patient's Authorized Molder Feeder. As applicable, any other physician, advance practice provider, medical student, or other health professional student that will be observing or involved in the sensitive examination for educational or training purposes was discussed with the Patient or Authorized Molder Feeder. The Patient or Authorized Molder Feeder has agreed to proceed with the sensitive examination. (Sensitive examination includes inspection and/or palpation of the breasts, pelvis, prostate and anorectal regions). EXAM: BP 100/60 Ht 5' 4 (1.63m) Wt 146 lb 3.2 oz (66.3kg) LMP 06/12/2024 BMI 25.08 kg/(m2). GENERAL: pleasant, female in no apparent distress HEENT: Normocephalic and atraumatic NECK: full range of motion DERMATOLOGY: Normal, without lesions, non-icteric, and non-hirsute BREAST: soft, non-tender, symmetric, no dominant mass, normal nipple-areolar complex, no lymphadenopathy, and no nipple discharge CHEST: Normal inspiratory effort ABDOMEN: soft, non-tender, and no masses PELVIC: external genitalia normal, normal Bartholin's glands, urethra, Confluence's glands, no vulvar lesions, no cervical lesions, good vaginal support, physiologic discharge present, normal appearing perineal body and perianal region BIMANUAL: uterus normal size, shape and consistency, no adnexal masses, and non-tender RECTOVAGINAL: deferred. NEURO: exam grossly non-focal EXTREMITIES: normal ASSESSMENT/PLAN: 1) Health maintenance: Pap done with HPV. Nutrition, exercise and routine health maintenance exams reviewed. Menorrhagia and dysmenorrhea: Discussed possible endometriosis given her description of pain and bleeding? Check pelvic US. Had recent CBC, TSH. Discussed hormonal contraception options. She reports migraines with aura. Recommended Mirena IUD Vaginal discharge: Check BV, yeast. The patient feels as if she gets frequent yeast infections and will use Monistat if needed. Start probiotic and reviewed vulvar care and hygiene measures 2) Contraception: tubal steril (more content not included)... Normal [facility] HIGH RISK HUMAN PAPILLOMA KYLER (HPV), PCR FOR DETECTION AND GENOTYPINGon 06-26-2024 HPV 16 Ag Ql (Unsp spec) Not detected Normal Not detected [facility] Comment on above: Order Comment: Speci men Type: FLUID SPECIMEN Ordering Facility: [facility] Address: [address] [place] [address] Performed By: #### H PVHRT #### [facility] CLIA [id number] [address] [place] [address] [place] HPV 18 Ag Ql (Unsp spec) Not detected Normal Not detected [facility] Comment on above: Order Comment: Speci men Type: FLUID SPECIMEN Ordering Facility: [facility] Address: [address] [place] [address] Performed By: #### H PVHRT #### [facility] CLIA [id number] [address] [place] [address] [place] HPV 31+33+35+39+45+51+5 2+56+58+59+66+68 DNA JENARO+probe Ql (Cvx) Not detected Normal Not detected [facility] Comment on above: Order Comment: Speci men Type: FLUID SPECIMEN Ordering Facility: [facility] Address: [address] [place] [address] Result Comment: High Risk HPV Other Type includes HPV types 31, 33, 35, 39, 45, 51, 52, 56, 58, 59, 66 and 68. Performed By: #### H PVHRT #### [facility] CLIA [id number] [address] [place] [address] [place] PAP TESTon 06-26-2024 ADEQUACY Satisfactory for interpretation. Normal [facility] Comment on above: Order Comment: Speci men Type: FLUID SPECIMEN Ordering Facility: [facility] Address: [address] [place] [address] Performed By: #### L [id number] #### [facility] CLIA [id number] [address] [place] [address] [place] [facility] CLIA [id number] [address] [place] [address] [place] CASE REPORT Normal [facility] Comment on above: Order Comment: Speci men Type: FLUID SPECIMEN Ordering Facility: [facility] Address: [address] [place] [address] Result Comment: Gyne cologic Cytology Report Case: [id number] Authorizing Provider: Ara Hwang MD Collected: 06/26/2024 04:32 PM Ordering Location: OB/Gynecology Received: 06/26/2024 04:47 PM First Screen: Martinez, Luz Maria, CT, ASCP Rescreen: Mohorcic, Josi, CT, ASCP Specimen: Pap Test, ThinPrep, Cervix Performed By: #### L [id number] #### [facility] CLIA [id number] [address] [place] [address] [place] [facility] CLIA [id number] [address] [place] [address] [place] CLINICAL HISTORY, CYTOLOGY, PHOTO MACHINE OPERATOR Abnormal Bleeding (Describe) Normal [facility] Comment on above: Order Comment: Speci men Type: FLUID SPECIMEN Ordering Facility: [facility] Address: [address] [place] [address] Performed By: #### L [id number] #### [facility] CLIA [id number] [address] [place] [address] [place] [facility] CLIA [id number] [address] [place] [address] [place] FINAL PERFORMING LAB Normal [facility] Comment on above: Order Comment: Speci men Type: FLUID SPECIMEN Ordering Facility: [facility] Address: [address] [place] [address] Result Comment: Tech nical component, humanities division chair screening performed at [facility], [address] [place] [address] CLIA# [id number] Diagnostic interpretation performed at [facility], [address] [place] [address] CLIA# [id number] Tier Lift Truck Operator: Barbara Faith M.D. Performed By: #### L [id number] #### [facility] CLIA [id number] [address] [place] [address] [place] [facility] CLIA [id number] [address] [place] [address] [place] INTERPRETATION, CYTOLOGY, PHOTO MACHINE OPERATOR Normal [facility] Comment on above: Order Comment: Speci men Type: FLUID SPECIMEN Ordering Facility: [facility] Address: [address] [place] [address] Result Comment: Nega tive for intraepithelial lesion or malignancy. Performed By: #### L [id number] #### [facility] CLIA [id number] [address] [place] [address] [place] [facility] CLIA [id number] [address] [place], [place] [address] [place] LMP 06/12/2024 Normal [facility] Comment on above: Order Comment: Speci men Type: FLUID SPECIMEN Ordering Facility: [facility] Address: [address] [place] [address] Performed By: #### L [id number] #### [facility] CLIA [id number] [address] [place] [address] [place] [facility] CLIA [id number] [address] [place] [address] [place] PAP DISCLAIMER COMMENT The Pap Smear is a screening test for cervical cancer. False negative results occur with all screening tests, emphasizing the need for rescreening at recommended intervals, and clinical correlation. Normal [facility] Comment on above: Order Comment: Speci men Type: FLUID SPECIMEN Ordering Facility: [facility] Address: [address] [place] [address] Performed By: #### L [id number] #### [facility] CLIA [id number] [address] [place] [address] [place] [facility] CLIA [id number] [address] [place] [address] [place] PAP DOOR LINER COMMENT This specimen has be en analyzed by the ThinPrep Imaging System, an automated imaging and review system, which assists the laboratory in evaluating cells on ThinPrep Pap tests. Following automated imaging, selected mackenzie from every slide are reviewed by a humanities division chair. Normal [facility] Comment on above: Order Comment: Speci men Type: FLUID SPECIMEN Ordering Facility: [facility] Address: [address] [place] [address] Performed By: #### L [id number] #### [facility] CLIA [id number] [address] [place] [address] [place] [facility] CLIA [id number] [address] [place] [address] [place] 36on 05-01-2024 36 RX loaded Next ov 08/11/24 Normal [facility] 36 Ordering provider: Eloy Gabriel Date of last office visit: 01.18.24 Date of next office visit: 08.11.24 Updated/Validated preferred pharmacy: Yes Patient instructed to contact the pharmacy prior to picking up the medication: Yes (1) Medication name: sertraline (Zoloft) 25 MG tablet Medication dosage: 25 mg (Miligrams Monthly quantity needed: 90 How many day supply requestin days Medication route: oral (PO) Medication administration time(s): daily If taking medication PRN, reason for taking medication: N/A If this is a controlled substance do you receive this or any other controlled medication from any other doctor or facility: N/A Date of last refill (see medication tab): 02.05.24 (2) Medication name: sertraline (Zoloft) 100 MG tablet Medication dosage: 100 mg (Miligrams Monthly quantity needed: 90 How many day supply requestin days Medication route: oral (PO) Medication administration time(s): daily If taking medication PRN, reason for taking medication: N/A If this is a controlled substance do you receive this or any other controlled medication from any other doctor or facility: N/A Date of last refill (see medication tab): 02.05.24 Normal [facility] AMB POC URINE DIP STICK MANU AL W/O MICROon 01-17-2023 Bilirubin, UA Negative [facility] h Blood, UA Moderate [facility] Glucose, UA Negative [facility] Ketones, UA Negative [facility] Leukocytes, UA Small [facility] th Nitrite, UA Positive [facility] pH, UA 7.0 [facility] Protein, UA 100 [facility] Spec Grav, UA 1.025 [facility] Urobilinogen, [facility]A 2.0 [facility] COVID 19 AG RAPID (KARLO Zarate)on 08-03-2021 SARS-CoV-2 (COVID-19) RNA JENARO+probe Ql (Unsp spec) *Negative results from patients with symptom onset beyond five days should be treated as presumptive and confirmed by a molecular assay if clinically necessary. Negative results should not be used as the sole basis for treatment or for patient management. COVID 19 AG RAPID (KARLO HARRIS) *Positive results do not differentiate between SARS-CoV and SARS-CoV-2. If differentation of the specific SARS virus is desired an additional sample and an additional order is required. COVID 19 AG RAPID (RN COLLECT) * This test has not been FDA cleared or approved; the test has been authorized by FDA under an Emergency Use Authorization (EAU) for use by laboratories certified under CLIA that meet the requirements to perform moderate, high, or waived complexity tests. COVID 19 AG RAPID (RN COLLECT) Normal Reference Range: Negative SARS-CoV-2 (COVID 19) Negative RAPID METHOD Quidel Taylor Analyzer RENETTA Normal [facility] Comment on above: Performed By: #### M [id number] #### [facility] [address] [place], [address] Colonoscopy Reporton 021 Colonoscopy Report [facility] Medical Records Department [address] [place] [address] Colonoscopy Report MR#: [id number] Acct: [id number] Name: KELLIE MIJARES Rep #: [id number] : 1990 31 From: Emmy Green MD PCP: Dr. Andres Crockett, DO [place] [facility] [place] Name: Kellie Miajres Procedure Date: 08/03/2021 9:25 AM Date of : 1990 Age: 31 Procedure: Colonoscopy Indications: Surveillance: Personal history of adenomatous polyps on last colonoscopy 3 years ago Providers: Emmy Green MD Medicines: Monitored Anesthesia Care Patient Profile: This is a 31 year old female. Last Colonoscopy: October 2017. Complications: No immediate complications. Procedure: Pre-Anesthesia Assessment: - Prior to the procedure, a History and Physical was performed, and patient medications and allergies were reviewed. The patient's tolerance of previous anesthesia was also reviewed. The risks and benefits of the procedure and the sedation options and risks were discussed with the patient. All questions were answered, and informed consent was obtained. Prior Anticoagulants: The patient has taken no previous anticoagulant or antiplatelet agents. ASA Grade Assessment: Per anesthesia. After reviewing the risks and benefits, the patient was deemed in satisfactory condition to undergo the procedure. After I obtained informed consent, the scope was passed under direct vision. Throughout the procedure, the patient's blood pressure, pulse, and oxygen saturations were monitored continuously. The pediatric colonoscope was introduced through the anus and advanced to the cecum, identified by appendiceal orifice and ileocecal valve. The colonoscopy was performed without difficulty. The patient tolerated the procedure well. The quality of the bowel preparation was good. Scope In: 9:40:06 AM Scope Withdrawal Time 0 hours 9 minutes 34 seconds Scope Out: 9:55:12 AM Total Procedure Duration Time 0 hours 15 minutes 6 seconds Findings: The perianal and digital rectal examinations were normal. The entire examined colon appeared normal on direct and retroflexion views. Impression: - The entire examined colon is normal on direct and retroflexion views. - No specimens collected. Recommendation: - Discharge patient to home. - Resume previous diet. - Continue present medications. - Repeat colonoscopy in 10 years for surveillance. Procedure Code(s): --- Professional --- G0105, PT, Colorectal cancer screening; colonoscopy on individual at high risk Diagnosis Code(s): --- Professional --- Z86.010, Personal history of colonic polyps CPT copyright 2017 [employer]. All rights reserved. The codes documented in this report are preliminary and upon spa assistant manager review may be revised to meet current compliance requirements. MD Emmy Cotton MD 08/03/2021 9:59:10 AM This report has been signed electronically. Number of Addenda: 0 Note Initiated On: 08/03/2021 9:25 AM 08/03/21 0959 Date Emmy Green MD Cosigner Signature: Date (if indicated) CC: Dr. Andres Crockett DO; Dr. Emmy Green MD Date Dictated: 08/03/21924 Date Transcribed: Count Team Clerk: ALEC Signed Normal [facility] MR/JORDY.Dari 07-04-2021 /JORDY.[place] [address] [place] [address] OFFICE VISIT Date of Service: 07/04/21 MR#: [id number] Acct: [id number] Name: KELLIE MIJARES Rep #: [id number] : 1990 Provider: ROSMERY cueto Age/Sex: 31/F [place] [facility] [place]: Signed Intake Intake Visit Reasons: engorgement Chief Complaint: engorgement Is patient in pain?: No Allergies bupropion [From Wellbutrin] Adverse Reaction (Verified 07/04/21 09:24) Other : Yes PFSH PFSH Medical History (Updated 07/06/21 @ 00:00 by Background Daemon) Abdominal pain in female Anxiety Depression Diarrhea Gestational HTN Gestational hypertension Hematochezia Migraines Oligohydramnios depression Tarry stool Surgical History (Updated 07/06/21 @ 00:00 by Background Daemon) Delivery by section History of surgery Previous section Family History (Updated 09/26/17 @ 13:49 by Edwige Brand) Mother No problems noted. Social History (Updated 09/27/17 @ 09:[address] Emmy Green MD) Smoking Status: Never smoker alcohol intake: never Pregancy History 2 Elective abortions Hx Para 2 Spontaneous abortions Hx # Term Pregnancies Ectopic pregnancies Hx # Pregnancies Multiple births # of living children 2 ROS ROS Const Constitutional: Denies fatigue or fever(s) : Denies nipple discharge Skin Skin/Breast: Reports breast skin changes (engorgement) and other (nipple pain on and off ); Denies breast pain or nipple discharge Details: history of over supply with first child, was pumping but has tried to decrease pumping sessions and just feed on demand at home Exam Maternal Assessment Breast Assessment Bilateral Breasts: Full Nipple Assessment Bilateral Nipples: Everted Areolar Tissue Areolar Tissue: Pliable Assessment Baby Feeding History Is your baby latching onto the breast: Yes Number of Breast Feedings in 24 hours: 8 Minutes per breast: First Breast: 30-40 Minutes per breast: Second Breast: 0 Supplements Supplement Type:: None Breast Pumping Type of Breast Pump: haakaa, spectra Frequency: PRN Goals Breast Feeding Goals: Exclusive Exam Const General: no acute distress Orientation: alert and oriented x3 Chest Breast inspection: normal inspection of the breasts (no redness, warmth, fullness noted) Other: bilateral nipples slightly reddened but no cracking present Resp Effort Inspection: normal respiratory effort Skin General: no rashes or lesions noted Psych Appearance: grossly normal Affect: normal affect Thought Process: normal Assessment and Plan Assessment and Plan (1) Engorgement of breast associated with childbirth, : Plan: Patient had clogged duct to left side but it has improved over the last 2 days. Engorgement still present. Recommended haakaa with feeds for comfort. Can use heat/massage before feeds and ice packs after feeds. Also educated on supplements to help with clogged ducts. Can follow up PRN or for any new or worsening symptoms. (2) nipple pain: Plan: Pain is improving, will order combination nipple cream as needed. Can follow up for any new or worsening symptoms. (3) Care and examination of lactating mother: Plan: Plan as above. Coding Level of Care Code Off vis,new,level 3 Diagnoses Engorgement of breast associated with childbirth, O92.79 nipple pain O92.29 Care and examination of lactating mother Z39.1 07/10/21 1055 Date Martha Denise NP PRODUCTION TEAM MEMBER-C Cosigner Signature: Date (if applicable) CC: Dr. Andres Crockett, DO Normal [facility] CBC-Complete Blood Cnt No Di ffon 06-26-2021 Erythrocyte distribution width (RBC) [Ratio] 13.5 % Normal 11.6-14.6 [facility] Comment on above: Order Comment: Comme nts: Day #1 Reason for Laboratory Test Performed By: #### L 100.0483 #### [facility] [address] [place], [address] Hematocrit (Bld) [Volume fraction] 31.7 % Low 37-47 [facility] Comment on above: Order Comment: Comme nts: Day #1 Reason for Laboratory Test Performed By: #### L 100.0500 #### [facility] [address] [place], [address] Hemoglobin (Bld) [Mass/Vol] 10.5 g/dL Low 12.0-15.0 [facility] Comment on above: Order Comment: Comme nts: Day #1 Reason for Laboratory Test Performed By: #### L 100.0500 #### [facility] [address] [place], [address] MCH (RBC) [Entitic mass] 33.0 pg High 27.0-32.0 [facility] Comment on above: Order Comment: Comme nts: Day #1 Reason for Laboratory Test Performed By: #### L 100.0500 #### [facility] [address] [place], [address] MCHC (RBC) [Mass/Vol] 33.1 g/dL Normal 32-36 [facility] Comment on above: Order Comment: Comme nts: Day #1 Reason for Laboratory Test Performed By: #### L 100.0500 #### [facility] [address] [place], [address] MCV (RBC) [Entitic vol] 99.7 fL High 81-99 [facility] Comment on above: Order Comment: Comme nts: Day #1 Reason for Laboratory Test Performed By: #### L 100.0500 #### [facility] [address] [place], [address] Platelet mean volume (Bld) [Entitic vol] 9.0 fL Normal 6.2-12.0 [facility] Comment on above: Order Comment: Comme nts: Day #1 Reason for Laboratory Test Performed By: #### L 100.0500 #### [facility] [address] [place], [address] Platelets (Bld) [#/Vol] 294 10*3/uL Normal 150-450 [facility] Comment on above: Order Comment: Comme nts: Day #1 Reason for Laboratory Test Performed By: #### L 100.0500 #### [facility] [address] [place], [address] RBC (Bld) [#/Vol] 3.18 10*6/uL Low 4.2-5.4 [facility] Comment on above: Order Comment: Comme nts: Day #1 Reason for Laboratory Test Performed By: #### L 100.0500 #### [facility] [address] [place], [address] RDW SD 49.1 fl High 35.1-43.9 [facility] Comment on above: Order Comment: Comme nts: Day #1 Reason for Laboratory Test Performed By: #### L 100.0500 #### [facility] [address] [place], [address] WBC (Bld) [#/Vol] 17.9 10*3/uL High 4.4-11.0 [facility] Comment on above: Order Comment: Comme nts: Day #1 Reason for Laboratory Test Performed By: #### L 100.0500 #### [facility] [address] [place], [address] AST(SGOT)on 06-25-2021 AST [Catalytic activity/Vol] 16 U/L Normal 15-37 [facility] Comment on above: Performed By: #### M 100.505 #### [facility] [address] [place], [address] Alanine Aminotransferas (SGP T)on 06-25-2021 ALT [Catalytic activity/Vol] 19 U/L Normal 13-56 [facility] Comment on above: Performed By: #### M 100.505 #### [facility] [address] [place], [address] CBC W/Diff, Automatedon 11- Absolute Neut Normal 2.0-7.7 [facility] Comment on above: Result Comment: Canc elled via OM: MD Ordered Performed By: #### Rossana TS, L100.0100 #### [facility] [address] [place], [address] HCT Normal 37-47 [facility] Comment on above: Result Comment: Canc elled via OM: MD Ordered Performed By: #### Rossana TS, L100.0100 #### [facility] [address] [place], [address] HGB Normal 12.0-15.0 [facility] Comment on above: Result Comment: Canc elled via OM: MD Ordered Performed By: #### Rossana TS, L100.0100 #### [facility] [address] [place], [address] MCH Normal 27.0-32.0 [facility] Comment on above: Result Comment: Canc elled via OM: MD Ordered Performed By: #### Rossana TS, L100.0100 #### [facility] [address] [place], [address] MCHC Normal 32-36 [facility] Comment on above: Result Comment: Canc elled via OM: MD Ordered Performed By: #### Rossana TS, L100.0100 #### [facility] [address] [place], [address] MCV Normal 81-99 [facility] Comment on above: Result Comment: Canc elled via OM: MD Ordered Performed By: #### Rossana TS, L100.0100 #### [facility] [address] [place], [address] NEUT% Normal 47-70 [facility] Comment on above: Result Comment: Canc elled via OM: MD Ordered Performed By: #### B TS, L100.0100 #### [facility] [address] [place], [address] PLT Normal 150-450 [facility] Comment on above: Result Comment: Canc elled via OM: MD Ordered Performed By: #### B TS, L100.0100 #### [facility] [address] [place], [address] RBC Normal 4.2-5.4 [facility] Comment on above: Result Comment: Canc elled via OM: MD Ordered Performed By: #### B TS, L100.0100 #### [facility] [address] [place], [address] RDW CV Normal 11.6-14.6 [facility] Comment on above: Result Comment: Canc elled via OM: MD Ordered Performed By: #### B TS, L100.0100 #### [facility] [address] [place], [address] RDW SD Normal 35.1-43.9 [facility] Comment on above: Result Comment: Canc elled via OM: MD Ordered Performed By: #### B TS, L100.0100 #### [facility] [address] [place], [address] WBC Normal 4.4-11.0 [facility] Comment on above: Result Comment: Canc elled via OM: MD Ordered Performed By: #### B TS, L100.0100 #### [facility] [address] [place], [address] CBC-Complete Blood Cnt No Di ffon 06-25-2021 Erythrocyte distribution width (RBC) [Ratio] 13.2 % Normal 11.6-14.6 [facility] Comment on above: Performed By: #### L 501.4405, L100.0500, L501.4100, L501.0900, L501.1105, L501.1400 #### [facility] [address] [place], [address] Hematocrit (Bld) [Volume fraction] 37.5 % Normal 37-47 [facility] Comment on above: Performed By: #### L 501.4405, L100.0500, L501.4100, L501.0900, L501.1105, L501.1400 #### [facility] [address] [place], [address] Hemoglobin (Bld) [Mass/Vol] 12.4 g/dL Normal 12.0-15.0 [facility] Comment on above: Performed By: #### L 501.4405, L100.0500, L501.4100, L501.0900, L501.1105, L501.1400 #### [facility] [address] [place], [address] MCH (RBC) [Entitic mass] 32.5 pg High 27.0-32.0 [facility] Comment on above: Performed By: #### L 501.4405, L100.0500, L501.4100, L501.0900, L501.1105, L501.1400 #### [facility] [address] [place], [address] MCHC (RBC) [Mass/Vol] 33.1 g/dL Normal 32-36 [facility] Comment on above: Performed By: #### L 501.4405, L100.0500, L501.4100, L501.0900, L501.1105, L501.1400 #### [facility] [address] [place], [address] MCV (RBC) [Entitic vol] 98.4 fL Normal 81-99 [facility] Comment on above: Performed By: #### L 501.4405, L100.0500, L501.4100, L501.0900, L501.1105, L501.1400 #### [facility] [address] [place], [address] Platelet mean volume (Bld) [Entitic vol] 9.5 fL Normal 6.2-12.0 [facility] Comment on above: Performed By: #### L 501.4405, L100.0500, L501.4100, L501.0900, L501.1105, L501.1400 #### [facility] [address] [place], [address] Platelets (Bld) [#/Vol] 324 10*3/uL Normal 150-450 [facility] Comment on above: Performed By: #### L 501.4405, L100.0500, L501.4100, L501.0900, L501.1105, L501.1400 #### [facility] [address] [place], [address] RBC (Bld) [#/Vol] 3.81 10*6/uL Low 4.2-5.4 [facility] Comment on above: Performed By: #### L 501.4405, L100.0500, L501.4100, L501.0900, L501.1105, L501.1400 #### [facility] [address] [place], [address] RDW SD 47.9 fl High 35.1-43.9 [facility] Comment on above: Performed By: #### L 501.4405, L100.0500, L501.4100, L501.0900, L501.1105, L501.1400 #### [facility] [address] [place], [address] WBC (Bld) [#/Vol] 10.1 10*3/uL Normal 4.4-11.0 [facility] Comment on above: Performed By: #### L 501.4405, L100.0500, L501.4100, L501.0900, L501.1105, L501.1400 #### [facility] [address] [place], [address] COVID 19 AG RAPID (RN COLLEC T)on 06-25-2021 SARS-CoV-2 (COVID-19) RNA JENARO+probe Ql (Unsp spec) *Negative results from patients with symptom onset beyond five days should be treated as presumptive and confirmed by a molecular assay if clinically necessary. Negative results should not be used as the sole basis for treatment or for patient management. COVID 19 AG RAPID (RN COLLECT) *Positive results do not differentiate between SARS-CoV and SARS-CoV-2. If differentation of the specific SARS virus is desired an additional sample and an additional order is required. COVID 19 AG RAPID (RN COLLECT) * This test has not been FDA cleared or approved; the test has been authorized by FDA under an Emergency Use Authorization (EAU) for use by laboratories certified under CLIA that meet the requirements to perform moderate, high, or waived complexity tests. COVID 19 AG RAPID (RN COLLECT) Normal Reference Range: Negative SARS-CoV-2 (COVID 19) Negative RAPID METHOD Quidel Taylor Analyzer RENETTA, lateral flow immunofluorescent Normal [facility] Comment on above: Performed By: #### M 100.505 #### [facility] [address] [place], [address] H AND P Exam - OB/GYNon 06-13 H&P Exam - PROCUREMENT BUYER [facility] Medical Records Department [address] [place] [address] H P Exam - PROCUREMENT BUYER 06/25/21 0736 MR#: [id number] Acct: [id number] Name: KELLIE MIJARES Rep #: [id number] : 1990 31 From: Ara Hwang DO PCP: Dr. Andres Crockett DO Status:ADM IN Location: [id number] HPI - General General Date of Admission: 06/24/21 HPI Narrative KELLIE MIJARES, is a 31 F who presents with elevated BP. Came to the office for routine visit. At that time she reported a history of chronic headaches and a mild headache that was not outside of the normal headache for her. No visual changes. Some upper belly pain that had resolved. Some nausea as well. Her blood pressure in the office was 125/91. She was instructed to check her blood pressure a few hours later at home with a blood pressure cuff and call with results. At home her diastolic blood pressure was in the 90s, so she presented to labor and delivery for rule out preeclampsia and likely gestational hypertension. Her headache has improved. No vision changes or upper belly pain. She is doing well. No regular contractions or vaginal bleeding or leaking of fluid. Good movement. Here on labor and delivery she has had several mild range blood pressures. Maternal Data Information TONY Calculator Estimated Delivery Date Method Current WG Current Estimate 07/10/21 LMP (Certain) 37w 6d PFSH PFS Medical History (Updated 06/25/21 @ 07:[address] Ara Hwang DO) Abdominal pain in female Anxiety Depression Diarrhea Gestational HTN Hematochezia Migraines Oligohydramnios depression Tarry stool Home Medications vit [id number] 1 tab PO DAILY 08/28/19 [History Last Taken 06/24/21 21:00] sertraline [Zoloft] 100 mg PO DAILY 06/24/21 [History Last Taken 06/24/21 21:00] Allergy/AdvReac Type Severity Reaction Status Date / Time bupropion [From Wellbutrin] AdvReac Other Verified 06/24/21 22:17 Family History (Updated 09/26/17 @ 13:49 by Edwige Brand) Mother No problems noted. Surgical History (Updated 06/25/21 @ 07:[address] Ara Hwang DO) History of surgery Previous section Social History (Updated 09/27/17 @ 09:[address] Emmy Green MD) Smoking Status: Never smoker alcohol intake: never History Elective abortions Hx Para 1 Spontaneous abortions Hx # Term Pregnancies Ectopic pregnancies Hx # Pregnancies Multiple births # of living children NST FHR Rate Baby A FHR Category:: Category I ROS Constitutional Constitutional: Reports as per HPI Vital Signs Vital Signs Vital Signs: 06/24/21 22:02 06/24/21 22:07 06/24/21 22:12 Temperature 97.3 F L Temperature Source Temporal Pulse Rate 96 91 92 Respiratory Rate Blood Pressure 132/94 H Blood Pressure [BP] Blood Pressure Mean [BP] BP Systolic 132 BP Diastolic 94 Blood Pressure Source [BP] Blood Pressure Position [BP] Blood Pressure Location [BP] Pulse Ox 98 98 97 Oxygen Delivery Method 06/24/21 22:17 06/24/21 22:28 06/24/21 22:32 Temperature Temperature Source Pulse Rate 96 88 88 Respiratory Rate Blood Pressure 126/91 H 129/93 H Blood Pressure [BP] Blood Pressure Mean [BP] BP Systolic 126 129 BP Diastolic 91 93 Blood Pressure Source [BP] Blood Pressure Position [BP] Blood Pressure Location [BP] Pulse Ox 97 97 Oxygen Delivery Method 06/24/21 22:33 06/24/21 22:38 06/24/21 22:43 Temperature Temperature Source Pulse Rate 91 80 87 Respiratory Rate Blood Pressure Blood Pressure [BP] Blood Pressure Mean [BP] BP Systolic BP Diastolic Blood Pressure Source [BP] Blood Pressure Position [BP] Blood Pressure Location [BP] Pulse Ox 97 97 97 Oxygen Delivery Method 06/24/21 22:48 06/24/21 22:53 06/24/21 22:58 Temperature Temperature Source Pulse Rate 81 82 81 Respiratory Rate Blood Pressure 126/85 H Blood Pressure [BP] Blood Pressure Mean [BP] BP Systolic 126 BP Diastolic 85 Blood Pressure Source [BP] Blood Pressure Position [BP] Blood Pressure Location [BP] Pulse Ox 97 97 96 Oxygen Delivery Method 06/24/21 23:02 06/24/21 23:03 06/24/21 23:08 Temperature Temperature Source Pulse Rate 86 88 86 Respiratory Rate Blood Pressure 127/93 H Blood Pressure [BP] Blood Pressure Mean [BP] BP Systolic 127 BP Diastolic 93 Blood Pressure Source [BP] Blood Pressure Position [BP] Blood Pressure Location [BP] Pulse Ox 96 97 Oxygen Delivery Method 06/24/21 23:13 06/24/21 23:17 06/24/21 23:18 Temperature Temperature Source Pulse Rate 84 82 8 (more content not included)... Normal [facility] Operative Reporton 1 Operative Report [facility] Medical Records Department [address] [place] [address] Operative Report 06/25/21 1001 MR#: [id number] Acct: [id number] Name: KELLIE MIJARES Rep #: [id number] : 1990 31 From: Ara Hwang DO PCP: Dr. Andres Crockett DO Status:ADM IN Location: [id number] Problems Associated Problem List Diagnoses (1) Encounter for sterilization: (2) History of section: (3) Gestational hypertension: (4) 37 weeks gestation of : Report of Operation Date of Procedure: 06/25/21 Pre-Operative Diagnosis: 37 week gestation, gHTN, history prior section, desires permanent sterilization Post-Operative Diagnosis: As above Surgery/Procedure Performed:: Repeat section with bilateral salpingectomy Description of Surgical Findings:: in vertex presentation. Clear fluid. Normal-appearing placenta with a three-vessel cord. Normal-appearing uterus and bilateral adnexa. Minimal - moderate amount of scar tissue. The fascia was significantly adhered to the rectus. The rectus muscles were adhered in the midline. Surgeon: POWER Hwangmusic educator: Luisa Type of Anesthesia: Spinal Special Medications: None Specimen's removed: Placenta Bilateral fallopian tubes Drains: Bond Estimated Blood Loss (mL): 1,200 Fluids Replaced: 800 cc Description of Procedure: Patient presented to the office at 37 weeks gestation with mild range blood pressures. She had a headache that resolved. Preeclampsia work-up was negative. Delivery was recommended due to persistent mild range blood pressures on labor and delivery meeting criteria for gestational hypertension at 37 weeks. Discussed risk, benefits, alternatives to a bilateral salpingectomy. Discussed risk of regret and that the procedure is permanent and irreversible. The patient was 100% certain that she desires sterilization. Patient was taken to the operating room where spinal anesthesia was found to be adequate. She was prepped and draped in the dorsal supine position with a leftward tilt. A Pfannenstiel skin incision was made with a scalpel and this was carried down to the underlying layer of fascia. Subcutaneous tissue was made hemostatic with the Bovie cautery. The fascia was incised in the midline. The fascia was extended laterally using Pace scissors and dense adhesions to the rectus muscles were noted. The rectus muscles were adhered in the midline and in the midline bluntly. The peritoneum was entered bluntly with good visualization of the bladder. The incision was extended. A bladder blade was inserted. No adhesions of the bladder to the uterus were noted. A low transverse incision was made on the uterus with a scalpel. The membranes were ruptured with an Allis for clear fluid. The infant's head was flexed and brought to the hysterotomy. The head, followed by shoulders, followed by body of the were delivered without any force or delay. A viable male was delivered easily and atraumatically through the hysterotomy. The cord was clamped and cut after a slight delay. The infant was handed off to the nursery staff. The placenta was removed with manual extraction. The placenta was noted to be normal-appearing. The uterus was exteriorized. The uterus was cleared of all clot and debris. The hysterotomy was closed with Vicryl in a running locked fashion. Several additional xwrmer-uc-ponyd sutures were placed along the hysterotomy for hemostasis. I confirmed with the patient that she did desire permanent sterilization, and she requested to proceed with sterilization. The left fallopian tube was grasped and followed out to the fimbriated end. Using the LigaSure device the mesosalpinx was serially cauterized and transected until reaching the level of the cornua. At the level of the cornua the left fallopian tube was transected. The left fallopian tube was removed and sent to pathology for review. Hemostasis was noted. The same was performed on the right after the right fallopian tube was followed out to the fimbriated end. The right fallopian tube was also sent to pathology for review. The uterus was placed back into the abdomen. Sherly was placed over the hysterotomy. The peritoneum was closed with Vicryl in a running fashion. The rectus muscles were noted to have several areas of bleeding, and these areas were made hemostatic with the Bovie cautery. A dgecmb-ku-btbhf suture was placed over a area that was persistently bleeding along the right rectus, and good hemostasis was noted. The fascia was closed with stratafix in a running fashion. The subcutaneous space was irrigated and made hemostatic with the Bovie cautery. The subcutaneous space was reapproximated with Vicryl in a running fashion. The skin was closed with Monocryl in a running fashion. A dressing was placed. Instrument, sponge, needle counts were correc (more content not included)... Normal [facility] Pathology Specimen OBon 11-1 3-2021 PATH. Spec OB SEE PATHOLOGY REPORT Normal [facility] Comment on above: Order Comment: Comme nts: Suture in right tube Send Specimen For (Specify): Studies @ [facility] Lab:Routine Time of Procedure: 834 Date of Procedure: 06/25/21 Reason specimen being sent to pathology (Hx/complications): Routine Type of specimen: Fallopian Tube Type of procedure performed: Tubal Ligation Result Comment: Spec imen submitted to Anatomical Pathology Department for testing. Performed By: #### L 350.1800 #### [facility] [address] [place], [address] Protein+Creatinine Ratio,Uri neon 06-25-2021 PROT:CRE RATIO 226 mg/g CRE High 0-200 [facility] Comment on above: Performed By: #### M 100.505 #### [facility] [address] [place], [address] Protein (U) [Mass/Vol] 14.0 mg/dL High <11.9 [facility] Comment on above: Performed By: #### M 100.505 #### [facility] [address] [place], [address] UR CREAT 62.00 mg/dL Normal NO RANGE EST. [facility] Comment on above: Performed By: #### M 100.505 #### [facility] [address] [place], [address] Serum Creatinine AND GFRon 1 08-25-2020 Creatinine [Mass/Vol] 0.50 mg/dL Low 0.55-1.02 [facility] Comment on above: Result Comment: The validity of the calculated GFR GFRAA in patients over 70 years has not been determined. Clinical correlation is essential. Performed By: #### L 501.4405, L100.0500, L501.4100, L501.0900, L501.1105, L501.1400 #### [facility] [address] [place], [address] ECRCL 149.39 ml/min Normal [facility] Comment on above: Performed By: #### L 501.4405, L100.0500, L501.4100, L501.0900, L501.1105, L501.1400 #### [facility] [address] [place], [place], [address] EST GFR - AA 186 mL/min Normal >60 [facility] Comment on above: Result Comment: Afri can [place] GFR Calc Performed By: #### L 501.4405, L100.0500, L501.4100, L501.0900, L501.1105, L501.1400 #### [facility] [address] [place], [address] GFR/1.73 sq M.predicted among non-blacks MDRD (S/P/Bld) [Vol rate/Area] 154 mL/min/{1.73_m2} Normal >60 [facility] Comment on above: Result Comment: Non- GFR Calc Performed By: #### L 501.4405, L100.0500, L501.4100, L501.0900, L501.1105, L501.1400 #### [facility] [address] [place], [address] Surgery Specimen Level IIon 06-25-2021 Surgery Specimen Level II OPERATION: Tubal ligation PRE-OP DIAGNOSIS: Sterilization TISSUE SUBMITTED: Fallopian tube, suture in right tube ---- Right fallopian tube, salpingectomy: Complete segment of fallopian tube with no pathologic change. Left fallopian tube, salpingectomy: Complete segment of fallopian tube with no pathologic change. AM:hetal 06/28/2021 Slides are reviewed. Received in fixative is one container labeled with the patient's name and designated bilateral fallopian tubes, suture in right tube. The specimen consists of bilateral fallopian tubes including fimbrial ends. The right fallopian tube measures 5 cm in length and 0.6 cm in diameter and the left fallopian tube measures 6.5 cm in length and 0.6 cm in diameter. Sections reveal unremarkable cut surfaces. [employer] sections are submitted in two cassettes as follows: 1 ??? right fallopian tube, 2 ??? left fallopian tube. / SJ:rg 06/27/21 TC:4 [facility]: [id number] x2 ---- Signed (signature on file) Dr. Golden Davies DO 06/28/21 1159 ---- Normal [facility] Comment on above: Performed By: #### M 100.505 #### [facility] [address] [place], [address] Type AND Screenon 1 Ab SCREEN GEL Negative Normal [facility] Comment on above: Order Comment: Labor Performed By: #### B TS, L100.0100 #### [facility] [address] [place], [place], [id number] ABO and Rh group Nom (Bld) Blood group A Rh(D) positive Normal [facility] Comment on above: Order Comment: Labor Performed By: #### B TS, L100.0100 #### [facility] [address] [place], [place], [id number] Uric Acidon 06-25-2021 URIC 2.5 mg/dL Low 2.6-6.0 [facility] Comment on above: Result Comment: The drugs N-Acetylcysteine and Metamizole may falsely depress this assay. Performed By: #### L 501.4405, L100.0500, L501.4100, L501.0900, L501.1105, L501.1400 #### [facility] [address] [place], [place], [id number] Vital Signs Date Time Vital Sign Value Performing Clinician Temitope ferreira 08-11-2024 08:55-0500 Body height 165.1 cm Andres Crockett [employer] Work Phone: [facility] 08-11-2024 08:55-0500 Body mass index (BMI) [Ratio] 24.23 kg/m2 Andres Crockett [employer] Work Phone: [facility] 08-11-2024 08:55-0500 Body temperature 97.3 [degF] Andres Crockett [employer] Work Phone: [facility] 08-11-2024 08:55-0500 Body weight 66.04 kg [facility]res [facility] 08-11-2024 08:55-0500 Diastolic blood pressure 69 mm[Hg] Andres Crockett DO Work Phone: [facility] 08-11-2024 08:55-0500 Heart rate 66 /min Andres Crockett [employer] Work Phone: [facility] 08-11-2024 08:55-0500 SaO2% (BldA) [Mass fraction] 96 % Andres Crockett [employer] Work Phone: [facility] 08-11-2024 08:55-0500 Systolic blood pressure 100 mm[Hg] Andres Crockett [employer] Work Phone: [facility] 06-26-2024 15:56-0500 Body height 162.6 cm Ara Hwang MD Work Phone: [facility] 06-26-2024 15:56-0500 Body mass index (BMI) [Ratio] 25.1 kg/m2 Ara Hwang MD Work Phone: [facility] 06-26-2024 15:56-0500 Body weight 66.32 kg Ara Hwang MD Work Phone: [facility] 06-26-2024 15:56-0500 Diastolic blood pressure 60 mm[Hg] Ara Hwang MD Work Phone: [facility] 06-26-2024 15:56-0500 Systolic blood pressure 100 mm[Hg] Ara Hwang MD Work Phone: [facility] 02-05-2024 08:09-0400 Body height 165.1 cm Eloy Gabriel PA-C Work Phone: [facility] 02-05-2024 08:09-0400 Body mass index (BMI) [Ratio] 23.03 kg/m2 Eloy Gabriel PA-C Work Phone: [facility] 02-05-2024 08:09-0400 Body temperature 97.81 [degF] Eloy Montalvoo PA-C Work Phone: [facility] 02-05-2024 08:09-0400 Body weight 62.78 kg Eloy Gabriel PA-C Work Phone: [facility] 02-05-2024 08:09-0400 Diastolic blood pressure 60 mm[Hg] Eloy Montalvoo PA-C Work Phone: [facility] 02-05-2024 08:09-0400 Heart rate 73 /min Eloy Gabriel PA-C Work Phone: [facility] 02-05-2024 08:09-0400 SaO2% (BldA) [Mass fraction] 98 % Eloy Gabriel PA-C Work Phone: [facility] 02-05-2024 08:09-0400 Systolic blood pressure 90 mm[Hg] Eloy Montalvoo PA-C Work Phone: [facility] 01-17-2023 14:15-0400 Body height 165.1 cm Eloy Montalvoo PA-C Work Phone: [facility] 01-17-2023 14:15-0400 Body mass index (BMI) [Ratio] 23.13 kg/m2 Eloy Montalvoo PA-C Work Phone: [facility] 01-17-2023 14:15-0400 Body temperature 97.5 [degF] Eloy Montalvoo PA-C Work Phone: [facility] 01-17-2023 14:15-0400 Body weight 63.05 kg Eloy Montalvoo PA-C Work Phone: [facility] 01-17-2023 14:15-0400 Diastolic blood pressure 62 mm[Hg] Eloy Montalvoo PA-C Work Phone: [facility] 01-17-2023 14:15-0400 Heart rate 68 /min Eloy Montalvoo PA-C Work Phone: [facility] 01-17-2023 14:15-0400 SaO2% (BldA) [Mass fraction] 98 % Eloy Montalvoo PA-C Work Phone: [facility] 01-17-2023 14:15-0400 Systolic blood pressure 94 mm[Hg] Eloy Montalvoo PA-C Work Phone: [facility] 11-14-2022 14:55-0400 Body height 165.1 cm Andres Crockett DO Work Phone: [facility] 11-14-2022 14:55-0400 Body mass index (BMI) [Ratio] 24.13 kg/m2 Andres Crockett DO Work Phone: [facility] 11-14-2022 14:55-0400 Body temperature 97.7 [degF] Andres Crockett DO Work Phone: [facility] 11-14-2022 14:55-0400 Body weight 65.77 kg Andres Crockett DO Work Phone: [facility] 11-14-2022 14:55-0400 Diastolic blood pressure 59 mm[Hg] Andres Crockett DO Work Phone: [facility] 11-14-2022 14:55-0400 Heart rate 76 /min Andres Crockett DO Work Phone: [facility] 11-14-2022 14:55-0400 SaO2% (BldA) [Mass fraction] 95 % Andres Crockett DO Work Phone: [facility] 11-14-2022 14:55-0400 Systolic blood pressure 93 mm[Hg] Andres Crockett DO Work Phone: [facility] Encounters Encounter Date Encounter Type Care Provider Facility Start: 02-23-2025 End: 02-23-2025 Refill Andres Crockett DO Work Phone: [facility] [place] Comment on above: Migraine with aura a nd without status migrainosus, not intractable Start: 11-27-2024 End: 11-28-2024 Refill Andres Crockett DO Work Phone: [facility] [place] Comment on above: History of depressio n Start: 10-02-2024 End: 10-02-2024 [facility] Start: 10-02-2024 End: 10-02-2024 Patient encounter procedure [facility] Start: 10-02-2024 End: 10-02-2024 Refill Ara Hwang MD Work Phone: OB[facility]Gynecology Comment on above: Refill Request Start: 08-11-2024 End: 08-11-2024 Office outpatient visit 25 minutes Andres Crockett DO Work Phone: [facility] Comment on above: Other migraine witho ut status migrainosus, not intractable (Primary Dx); History of depression; Primary insomnia Start: 08-11-2024 End: 08-11-2024 ambulatory ANDRES CROCKETT [facility] Start: 07-21-2024 End: 07-21-2024 Telephone encounter Ara Hwang MD Work Phone: OB/Gynecology Start: 07-18-2024 End: 07-18-2024 ambulatory [employer] [facility] Work Phone: OB/Gynecology Start: 07-18-2024 End: 07-18-2024 Patient encounter procedure [employer] [facility] Work Phone: OB/Gynecology Start: 06-30-2024 End: 07-01-2024 Telephone encounter Ara Hwang MD Work Phone: OB/Gynecology Comment on above: Orders Results Start: 06-26-2024 End: 06-26-2024 ambulatory ARA HWANG Facility:[facility] Start: 06-26-2024 End: 06-26-2024 Patient encounter procedure Ara Hwang MD Work Phone: OB/Gynecology Comment on above: Encounter for gyneco logical examination (general) (routine) without abnormal findings (Primary Dx); Screening for cervical cancer; Encounter for screening for human papillomavirus (HPV); Dysmenorrhea; Excessive bleeding in premenopausal period Start: 06-26-2024 End: 06-26-2024 Patient encounter status Ara Hwang MD Work Phone: [facility] Start: 05-01-2024 End: 05-02-2024 Refill Andres Crockett DO Work Phone: [facility] [place] Comment on above: History of depressio n Start: 02-05-2024 End: 02-05-2024 Office outpatient visit 25 minutes Eloy Gabriel PA-C Work Phone: [facility] Comment on above: Migraine with aura a nd without status migrainosus, not intractable (Primary Dx); History of depression; Screening for thyroid disorder; Screening for deficiency anemia; Screening for diabetes mellitus; Nausea and vomiting, unspecified vomiting type; Dysmenorrhea Start: 01-17-2024 Refill Andres branham DO Work Phone: [facility] Comment on above: Other migraine witho ut status migrainosus, not intractable Start: 01-17-2023 End: 01-17-2023 Office outpatient visit 15 minutes Eloy Gabriel PA-C Work Phone: [facility] Comment on above: Dysuria (Primary Dx) ; Other migraine without status migrainosus, not intractable Start: 01-17-2023 ambulatory [facility] Start: 01-17-2023 Patient encounter procedure [facility] Start: 11-14-2022 End: 11-14-2022 Office outpatient visit 15 minutes Andres Crockett DO Work Phone: [facility] Comment on above: History of depressio n (Primary Dx) Start: 10-13-2022 Refill Andres branham DO Work Phone: [facility] Start: 03-27-2022 Refill Ara Amezquita Work Phone: OB/Gynecology Comment on above: Refill Request Start: 03-06-2022 Telephone encounter Ara camarena MD Work Phone: OB/Gynecology Comment on above: Medication Question Start: 02-21-2022 Refill Andra Amezquita Work Phone: OB/Gynecology Comment on above: Refill Request Procedures Date Procedure Procedure Detail Performing Clinician Start: 08-10-2024 Adult depression scr eening assessment Andres Crockett DO Work Phone: Start: 07-18-2024 Us pelvic nonobstetr ic real-time image complete Ara Hwang MD Work Phone: Start: 06-26-2024 Microscopic observat ion [Identifier] in Cervix by Cyto stain Andres Crockett DO Work Phone: Start: 01-17-2023 Urnls dip stick/tabl et rgnt non-auto w/o micrscp Eloy Gabriel PA-C Work Phone: Plan of Treatment Date Care Activity Detail Author Start: 2067 RSV Immunization for Adults (1 - 1-dose 75+ series) RSV Immunization for Adults (1 - 1-dose 75+ series) [facility] Start: 2052 RSV Immunization age d 60 or older (1 - 1-dose 60+ series) RSV Immunization aged 60 or older (1 - 1-dose 60+ series) [facility] Start: 2042 Zoster Vaccines (1 o f 2) Zoster Vaccines (1 of 2) [facility] Start: 04-15-2031 DTaP/Tdap/Td Vaccine s (4 - Td or Tdap) DTaP/Tdap/Td Vaccines (4 - Td or Tdap) [facility] Start: 04-15-2031 Urine microalbumin profile [facility] Start: 06-26-2029 Screening for malign ant neoplasm of cervix Cervical Cancer Screening [facility] Start: 06-26-2027 Screening for malign ant neoplasm of cervix [facility] Start: 11-29-2025 Screening for malign ant neoplasm of cervix Cervical Cancer Screening [facility] Start: 08-10-2025 [facility] Start: 07-03-2025 End: 07-03-2025 Patient encounter procedure 07/03/2025 4:00 PM EST Office Visit OB/Gynecology [address] [place] [id number] Ara Hwang MD [address] [place] [address] Annual OB/Gynecology Comment on above: Annual Start: 04-13-2025 Influenza vaccination [facility] Start: 03-16-2025 End: 03-16-2025 Patient encounter procedure 03/16/2025 11:20 AM EDT Office Visit [facility] [place] [address] [place] [address] Andres Crockett DO [address] [place] [address] [place] [address] [facility] [place] Start: 02-09-2025 End: 02-09-2025 Patient encounter procedure 02/09/2025 9:00 AM EDT Office Visit [facility] [address] [place] [address] Andres Crockett, [address] [place] [address] [place] [address] [facility] [place] Start: 08-11-2024 End: 08-11-2024 Patient encounter procedure [facility] Start: 07-18-2024 End: 07-18-2024 ambulatory 07/18/2024 3:30 PM EST Procedure OB/Gynecology [address] [place] [address] Remote, [employer] [address] [place] [address] Dysmenorrhea [N94.6] [facility]/Gynecology Comment on above: Dysmenorrhea [N94.6] Start: 07-03-2024 End: 07-03-2024 ambulatory 07/03/2024 3:30 PM EST Procedure OB/Gynecology [address] [place] [address] Remote, [employer] [address] [place] [address] Dysmenorrhea [N94.6] OB/Gynecology Comment on above: Dysmenorrhea [N94.6] Start: 06-26-2024 End: 06-26-2025 US Pelvis PELVIC US [facility] Anc Imaging Routine Dysmenorrhea Excessive bleeding in premenopausal period Expected: 06/26/2024, Expires: 06/26/2025 [facility] Work Phone: Comment on above: Expected: 06/26/2024 , Expires: 06/26/2025 Start: 04-13-2024 COVID-19 Vaccine ( season) COVID-19 Vaccine () [facility] Start: 04-13-2024 Covid-19 Vaccine (1 - 2024-25 season) Covid-19 Vaccine ( season) [facility] Start: 04-13-2024 Influenza vaccination [facility] Start: 02-05-2024 End: 02-04-2025 CBC W Auto Differential panel - Blood CBC auto differential Lab Routine Screening for deficiency anemia Dysmenorrhea Expected: 02/05/2024 (Approximate), Expires: 02/04/2025 [employer] [facility] Comment on above: Expected: 02/05/2024 (Approximate), Expires: 02/04/2025 Start: 02-05-2024 End: 02-04-2025 Celiac reflex panel Celiac reflex panel Lab Routine Nausea and vomiting, unspecified vomiting type Expected: 02/05/2024 (Approximate), Expires: 02/04/2025 [facility] Comment on above: Expected: 02/05/2024 (Approximate), Expires: 02/04/2025 Start: 02-05-2024 End: 02-04-2025 Comprehensive metabolic 1998 panel - Serum or Plasma Comprehensive metabolic panel Lab Routine Migraine with aura and without status migrainosus, not intractable History of depression Screening for diabetes mellitus Expected: 02/05/2024 (Approximate), Expires: 02/04/2025 [facility] Comment on above: Expected: 02/05/2024 (Approximate), Expires: 02/04/2025 Start: 02-05-2024 End: 02-04-2025 Ferritin [Mass/volume] in Serum or Plasma Ferritin Lab Routine Dysmenorrhea Expected: 02/05/2024 (Approximate), Expires: 02/04/2025 [facility] Comment on above: Expected: 02/05/2024 (Approximate), Expires: 02/04/2025 Start: 02-05-2024 End: 02-04-2025 Iron and Iron binding capacity panel - Serum or Plasma Iron and TIBC Lab Routine Dysmenorrhea Expected: 02/05/2024 (Approximate), Expires: 02/04/2025 [facility] Comment on above: Expected: 02/05/2024 (Approximate), Expires: 02/04/2025 Start: 02-05-2024 End: 02-04-2025 Thyrotropin [Units/volume] in Serum or Plasma TSH Lab Routine Screening for thyroid disorder Expected: 02/05/2024 (Approximate), Expires: 02/04/2025 [facility] Work Phone: Comment on above: Expected: 02/05/2024 (Approximate), Expires: 02/04/2025 Start: 02-05-2024 End: 02-05-2024 Patient encounter procedure 02/05/2024 8:20 AM EDT Office Visit [facility] [address] [place] [address] Eloy Gabriel PA-C [address] [place] [address] [facility] Start: 11-30-2023 PAP TESTING PAP TESTING [facility] Start: 04-13-2023 COVID-19 Vaccine ( season) COVID-19 Vaccine () [facility] Start: 04-13-2023 Influenza vaccination [facility] Start: 01-17-2023 End: 01-18-2024 Bacteria identified in Urine by Culture Urine culture (clean catch) Microbiology Routine Dysuria Expected: 01/17/2023 (Approximate), Expires: 01/18/2024 [facility] Work Phone: Comment on above: Expected: 01/17/2023 (Approximate), Expires: 01/18/2024 Start: 2022 Screening for malign ant neoplasm of cervix [facility] Start: 04-13-[address] [facility] Start: 10-13-2021 DTaP/Tdap/Td Vaccine s (3 - Td or Tdap) DTaP/Tdap/Td Vaccines (3 - Td or Tdap) [facility] Start: 2013 Screening for malign ant neoplasm of cervix Pap Smear [facility] Start: 2011 Hepatitis B Vaccine (1 of 3 - 19+ 3-dose series) Hepatitis B Vaccine (1 of 3 - 19+ 3-dose series) [facility] Start: 2011 Hepatitis B Vaccines (1 of 3 - 19+ 3-dose series) Hepatitis B Vaccines (1 of 3 - 19+ 3-dose series) [facility] Start: 2010 Anxiety Screening Anxiety Screening [facility] Start: 2010 Depression Screening Depression Scre ensheridan [facility] Start: 2010 Hepatitis C screening Hepatitis C Sc gorge [facility] Start: 12-09-2009 HPV Vaccine (3 - 3-d ose series) HPV Vaccine (3 - 3-dose series) [facility] Start: 12-09-2009 HPV Vaccines (3 - 3-dose series) HPV Vaccines (3 - 3-dose series) [facility] Start: 11-02-2009 HPV Vaccines (3 - 3-dose series) HPV Vaccines (3 - 3-dose series) [facility] Start: 2005 Varicella vaccination Varicell a Vaccines (1 of 2 - 13+ 2-dose series) [facility] Start: 2004 Adult depression screening assessment DEPRESSION SCREENING [facility] Start: 1993 MMR Vaccines (1 of 1 - Standard series) MMR Vaccines (1 of 1 - Standard series) [facility] Start: 1993 Varicella vaccination Varicell a Vaccines (1 of 2 - 2-dose childhood series) [facility] Start: 1992 COVID-19 VACCINE (#1) COVID-19 VACCI NE (#1) [facility] Start: 1992 HEPATITIS B (1 of 3 - 3-dose series) HEPATITIS B (1 of 3 - 3-dose series) [facility] Start: 1992 Hepatitis B Vaccines (1 of 3 - 3-dose series) Hepatitis B Vaccines (1 of 3 - 3-dose series) [facility] Start: 1992 HIV screening HIV Screening [facility] Start: 1992 Lipid panel Lipid Panel [facility] BACTERIAL VAGINOSIS NAAT BACTERIAL VAGINOSIS NAAT Lab Routine Dysmenorrhea 06/26/2024 4:57 PM [facility] AMINAH/TRICHOMONAS NAAT AMINAH/TRICHOMONAS NAAT Lab Routine Dysmenorrhea Excessive bleeding in premenopausal period 06/26/2024 4:57 PM EST [facility] HIGH RISK HUMAN PAPILLOMA VIRUS (HPV), PCR FOR DETECTION AND GENOTYPING HIGH RISK HUMAN PAPILLOMA VIRUS (HPV), PCR FOR DETECTION AND GENOTYPING Lab Routine Screening for cervical cancer Encounter for screening for human papillomavirus (HPV) Dysmenorrhea Excessive bleeding in premenopausal period 06/26/2024 4:32 PM [facility] PAP TEST PAP TEST Lab Anthony parra Screening for cervical cancer Encounter for screening for human papillomavirus (HPV) Dysmenorrhea Excessive bleeding in premenopausal period 06/26/2024 4:32 PM [facility] Immunizations Immunization Date Immunization Notes Care Provider Chito white 04-15-2021 tetanus toxoid, redu craig diphtheria toxoid, and acellular pertussis vaccine, adsorbed Andra Lyons MD Work Phone: [facility] Work Phone: 08-07-2019 tetanus toxoid, redu craig diphtheria toxoid, and acellular pertussis vaccine, adsorbed Andra Lyons MD Work Phone: [facility] Work Phone: 07-30-2019 tetanus toxoid, redu craig diphtheria toxoid, and acellular pertussis vaccine, adsorbed Andres Crockett Work Phone: [facility] 08-10-2009 human papilloma viru s vaccine, quadrivalent Andra Lyons MD Work Phone: [facility] 08-10-2009 HPV, unspecified formulation Eloy Gabriel PA-C Work Phone: [facility] 06-01-2009 human papilloma viru s vaccine, quadrivalent Andra Lyons MD Work Phone: [facility] Work Phone: 03-30-2009 human papilloma viru s vaccine, quadrivalent Andra Lyons MD Work Phone: [facility] Work Phone: Payers Date Payer Category Payer [facility] PPO [id number] 2022 [employer] - O ANTH BLUE CROSS [id number] 2022 Unknown [id number] 2019 Unknown [employer] PPO [id number] 2019-Present [phone] [address] [place] [address] PPO [id number] 2019 Unknown [id number] Social History Date Type Detail Facility Start: 07-23-2013 End: 06-26-2024 Tobacco smoking status NHIS Never smoked tobacco [facility] Work Phone: Start: 08-01-2021 End: 08-11-2024 Alcohol intake Current non-drinker of alcohol (finding) [facility] Start: 11-25-2020 Education 17 [facility] Start: 1992 Sex Assigned At Not on file [facility] Start: 07-23-2013 End: 06-26-2024 Tobacco use and exposure Smokeless tobacco non-user [facility] Work Phone: Start: 11-14-2022 End: 08-10-2024 Alcohol intake [facility] Start: 11-04-2022 End: 01-17-2023 Exposure to SARS-CoV-2 (event) Not sure [facility] Start: 01-17-2023 End: 08-10-2024 Tobacco use panel [facility] National Score (1-10 0), lower number is lower risk 55 [facility] Has the [employer], or [employer] threatened to shut off services in your home in past 12Mo No [facility] Do you belong to any clubs or organizations such as yazidi groups, unions, fraternal or athletic groups, or school groups? Yes [facility] Are you now , , , , never or living with a partner? [facility] How often to you hav e a drink containing alcohol? Never [facility] Do you feel stress - tense, restless, nervous, or anxious, or unable to sleep at night because your mind is troubled all the time - these days [OSQ] Rather much [facility] (I/We) worried wheth er (my/our) food would run out before (I/we) got money to buy more. Never true [facility] Start: 03-13-2022 Sex Female (finding) [facility] Functional Status Date Assessment Result Facility 02-04-2015 Are you deaf, or do you have serious difficulty hearing No 02/04/2015 1:22 PM Valencia Adams MA No [facility] 02-04-2015 Are you blind, or do you have serious difficulty seeing, even when wearing glasses No 02/04/2015 1:22 PM Valencia Adams MA No [facility] 02-04-2015 Do you have serious difficulty walking or climbing stairs No 02/04/2015 1:22 PM Valencia Adams MA No [facility] 02-04-2015 Do you have difficul ty dressing or bathing No 02/04/2015 1:22 PM Valencia Adams MA No [facility] 02-04-2015 Because of a physica l, mental, or emotional condition, do you have difficulty doing errands alone such as visiting a physician's office or shopping No 02/04/2015 1:22 PM EDT Valencia Valerio MA No [facility] Mental Status Date Assessment Result Facility 02-04-2015 Because of a physica l, mental, or emotional condition, do you have serious difficulty concentrating, remembering, or making decisions No 02/04/2015 1:22 PM EDT Valencia Valerio MA No [facility] Clinical Notes 12-01-2020 to 02-23-2025 Telephone Encounter - Ev Drake MA - 02/23/2025 7:39 AM EDTTelephone Encounter - Ev Drake MA - 02/23/2025 7:39 AM EDTTelephone Encounter - Juany Allen LPN - 11/27/2024 3:43 PM EDT Note Date & Type Note Facility 02-23-2025 Telephone encounter Note Images from the original note were not included. Ediwge Dick RN Registered Nurse Signed 02/20/2025 Copy S: Patient spoke with CAC nurse regarding Medication refill request B: Onset of symptoms/concern today A: Medications refill request - only 3 pills left of jdleudpdec-hmwukdwwtuwao-eifkryjq 50-325-40 MG tablet and going on vacation tomorrow requesting to have refill Pharmacy and allergies verified. R: Message to be sent to office for further assistance. No further needs at this time. Patient instructed to call back with new or worsening symptoms. 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 Edwige Dick RN Registered Nurse Signed 02/20/2025 Copy S: Patient spoke with CAC nurse regarding Medication refill request B: Onset of symptoms/concern today A: Medications refill request - only 3 pills left of ffadwbrnhy-xjqfimueddgxq-nkhhpgux 50-325-40 MG tablet and going on vacation tomorrow requesting to have refill Pharmacy and allergies verified. R: Message to be sent to office for further assistance. No further needs at this time. Patient instructed to call back with new or worsening symptoms. 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 Protocols used: Medication Refill and Renewal [id number] documented in this encounter [facility] 11-27-2024 Telephone encounter Note RX loaded Last ov 08/11/24 Next ov 02/09/25 [facility] 11-27-2024 Miscellaneous Notes RX loaded Last ov 08/11/24 Next ov 02/09/25 Ordering provider: Dr Crockett Date of last office visit: 08/11/2024 Date of next office visit: 02/09/2025 Updated/Validated preferred pharmacy: Yes Patient instructed to contact the pharmacy prior to picking up the medication: Yes (1) Medication name: sertraline (Zoloft) 100 MG tablet Medication dosage: 100 mg (Miligrams Monthly quantity needed: 30 How many day supply requestin days Medication route: oral (PO) Medication administration time(s): daily If taking medication PRN, reason for taking medication: N/A If this is a controlled substance do you receive this or any other controlled medication from any other doctor or facility: No Date of last refill (see medication tab): 05/02/2024 (2) Medication name: sertraline (Zoloft) 25 MG tablet Medication dosage: 25 mg (Miligrams Monthly quantity needed: 30 How many day supply requestin days Medication route: oral (PO) Medication administration time(s): daily If taking medication PRN, reason for taking medication: N/A If this is a controlled substance do you receive this or any other controlled medication from any other doctor or facility: No Date of last refill (see medication tab): 05/02/2024 documented in this encounter [facility] 11-27-2024 Telephone encounter Note Ordering provider: Dr Crockett Date of last office visit: 08/11/2024 Date of next office visit: 02/09/2025 Updated/Validated preferred pharmacy: Yes Patient instructed to contact the pharmacy prior to picking up the medication: Yes (1) Medication name: sertraline (Zoloft) 100 MG tablet Medication dosage: 100 mg (Miligrams Monthly quantity needed: 30 How many day supply requestin days Medication route: oral (PO) Medication administration time(s): daily If taking medication PRN, reason for taking medication: N/A If this is a controlled substance do you receive this or any other controlled medication from any other doctor or facility: No Date of last refill (see medication tab): 05/02/2024 (2) Medication name: sertraline (Zoloft) 25 MG tablet Medication dosage: 25 mg (Miligrams Monthly quantity needed: 30 How many day supply requestin days Medication route: oral (PO) Medication administration time(s): daily If taking medication PRN, reason for taking medication: N/A If this is a controlled substance do you receive this or any other controlled medication from any other doctor or facility: No Date of last refill (see medication tab): 05/02/2024 [facility] 10-02-2024 Telephone encounter Note S: Patient spoke with CAC nurse regarding human bite B:onset symptoms/concern: today around 0840 A: Patient was bit on right forearm this morning at work by a child. Child did break the skin, but it appears to be superficial. Patient is still able to see teeth flynn and reports bruising around site. Site did not bleed- no known exposure to other person's blood. Patient does not know child's vaccine status or if child had any communicable disease. Denies spreading redness. Patient unsure if needs to get evaluation or not. R: patient advised evaluation today would be recommended per protocol. Since incident happened in work place- it is likely a worker comp claim. Advised to speak with employer/ HR about where company uses for workers comp issues. Advised to call back with new or worsening symptoms. Reason for Disposition Superficial scratch from bite (any break in skin) Protocols used: Human [id number] [facility] 10-02-2024 Miscellaneous Notes S: Patient spoke with CAC nurse regarding human bite B:onset symptoms/concern: today around 0840 A: Patient was bit on right forearm this morning at work by a child. Child did break the skin, but it appears to be superficial. Patient is still able to see teeth flynn and reports bruising around site. Site did not bleed- no known exposure to other person's blood. Patient does not know child's vaccine status or if child had any communicable disease. Denies spreading redness. Patient unsure if needs to get evaluation or not. R: patient advised evaluation today would be recommended per protocol. Since incident happened in work place- it is likely a worker comp claim. Advised to speak with employer/ HR about where company uses for workers comp issues. Advised to call back with new or worsening symptoms. Reason for Disposition Superficial scratch from bite (any break in skin) Protocols used: Human [id number] documented in this encounter [facility] 08-11-2024 History of Present illness Narrative Images from the original note were not included. [facility] - [address] [facility] [id number] Visit type: Established Patient Reason for Visit: Follow-up (Med Check ), Migraine, Tingling (Tingling in left ear ), and Flu Vaccine (Patient has declined the flu vaccine ) Assessment / Plan: Kellie was seen today for follow-up, migraine, tingling and flu vaccine. Diagnoses and all orders for this visit: Other migraine without status migrainosus, not intractable (Primary) Comments: Uncontrolled, add Elavil, continue Maxalt as needed, call with update in 1 month. Possible recheck with neurology History of depression Comments: Stable on Zoloft Primary insomnia Comments: Recurrent, Elavil Other orders - amitriptyline (Elavil) 25 MG tablet; Take 1 tablet (25 mg) by mouth Nightly. 35 Minutes spent on reviewing pertinent history, patient interview, physical exam, discussion of diagnosis and treatment and work-up options. Subjective: Patient ID: Kellie Mijares is a 34 y.o. female. HPI patient with long history of migraines presents concerned about recurrent symptoms requiring Maxalt a few times a month. They are helpful but symptoms persist. No change in severity. Does have a peculiar numbness inside her left ear over the last couple months. She states a cousin has MS and was worried about that diagnosis. Of note recently had thorough ophthalmologic exam that was negative. Denies diplopia or scotomas. No change in speech or balance. No unilateral numbness of the arm or leg. History of a few MRIs of her head and CT as recently as August 2017. No recent falls or trauma. Review of Systems Zoloft is effective. Her children are well. Her marriage at work is solid. Denies earache sore throat or cough. No chest pain or palpitations. No heartburn or abdominal pain. Bowels are pretty regular for her. Due for recheck colonoscopy in 7 years. Her last 1 was unremarkable 3 years ago. No breakthrough heartburn early satiety or dysphagia. No melena or blood. 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 Allergies Allergen Reactions Bupropion Other reaction(s): Other, Other (See Comments), Other: See Comments, Other: See Comments sizure Other reaction(s): Other, Other: See Comments seizure seizure Current Outpatient Medications on File Prior to Visit Medication Sig Dispense Refill acetaminophen (Tylenol) 325 MG tablet Take 650 mg by mouth. gnfrfmabee-yqgkntlrzircs-uvkmtjna 50-325-40 MG tablet Take 1 tablet by mouth every 6 hours as needed for headaches or migraine. Use no more than 5/day, 10/week, 30/month. 30 tablet 1 Lactobacillus (Florajen Women) capsule Take 1 capsule by mouth daily. sertraline (Zoloft) 100 MG tablet Take 1 tablet (100 mg) by mouth daily. 90 tablet 1 sertraline (Zoloft) 25 MG tablet Take 1 tablet (25 mg) by mouth daily. 90 tablet 1 No current facility-administered medications on file prior to visit. Patient Active Problem List Diagnosis Migraine History of depression Chronic constipation History of colonic polyps Primary insomnia Social History Tobacco Use Smoking status: Never Smokeless tobacco: Never Substance Use Topics Alcohol use: No Alcohol/week: 0.0 standard drinks of alcohol Past Surgical History: Procedure Laterality Date SECTION (HISTORICAL) 2010 SECTION (HISTORICAL) 2019 COLONOSCOPY 07/[address] Green- due 2030 COLONOSCOPY W/ POLYPECTOMY 10/2017 small polyp- Dr. Agarwal, [place] TUBAL LIGATION 06/2021 UPPER GASTROINTESTINAL ENDOSCOPY 2017 negative Family History Problem Relation Name Age of Onset Depression Mother Danielle Arroyo No Known Problems Father Vinay No Known Problems Brother Vinay No Known Problems Brother Brien Cancer Paternal Grandmother Objective: BP 100/69 (BP Location: Right arm, Patient Position: Sitting, BP Cuff Size: Large adult) Pulse 66 Temp 36.3 C (97.3 F) (Temporal) Ht 5' 5 (1.651 m) Wt 145 lb 9.6 oz (66 kg) SpO2 96% BMI 24.23 kg/m Physical Exam pleasant alert and engaging. Well-groomed and has good insight. No thyroid or neck masses. No JVD carotid bruits. Reflexes normal throughout. Heart is regular without murmurs. Lungs are clear. Abdomen scaphoid without pain hepatosplenomegaly or masses. Extremities are pink without pallor cyanosis or edema. Sharp funduscopic exam. Pupils equal. Extraocular muscles are intact. All cranial nerves are normal. No nystagmus. All visual mackenzie are normal. Rapid alternating movements are normal. Normal pgoq-ca-hiik. All cerebellar tests are normal. No clonus. No Juárez's or Babinski. No fasciculations. documented in this encounter [facility] 08-11-2024 Instructions Andres Crockett DO - 08/11/2024 9:00 AM EST Call with update on meds in 4 weeks documented in this encounter [facility] 07-21-2024 Telephone encounter Note Pt notified and wants to think about it and will let our office know if she decides to move forward with Mirena IUD. Amy Chapa RN [facility] 07-21-2024 Telephone encounter Note ----- Message from Ara Hwang MD sent at 07/21/2024 4:34 PM EST ----- Notify pt normal pelvic US Still recommend considering Mirena IUD for dysmenorrhea and menorrhagia [facility] 07-21-2024 Miscellaneous Notes Pt notified and wants to think about it and will let our office know if she decides to move forward with Mirena IUD. Amy Chapa RN ----- Message from Ara Hwang MD sent at 07/21/2024 4:34 PM EST ----- Notify pt normal pelvic US Still recommend considering Mirena IUD for dysmenorrhea and menorrhagia documented in this encounter [facility] 07-21-2024 Note Indication Evaluation of abnormal uterine bleeding: dysmenorrhea Impression The uterus is retroflexed and measures 86 mm x 42 mm x 60 mm. The endometrial thickness is 9.7 mm. The right ovary measures 26 mm x 13 mm x 12 mm. The left ovary measures 36 mm x 23 mm x 23 mm. There is free fluid visualized. Recommendations Normal pelvic ultrasound. History Previous Outcomes Other: Intrauterine deaths < 14W: 1 Menstrual History LMP on 07/11/2024 Method Transabdominal, transvaginal, 3D ultrasound examination, Color Doppler examination. View: Adequate visualization Uterus Uterus: Visualized Uterus position: retroflexed Description of uterine malformations: none Myometrium: normal Endometrium: three-layer pattern Cervix details: normal Uterus length 86 mm Uterus width 60 mm Uterus height 42 mm Uterus Vol 114.1 cm Endometrial thickness, total 9.7 mm Fibroids: No fibroids identified Polyps: No polyps identified Right Ovary Rt ovary: Visualized Rt ovary morphology: premenopausal normal follicular Rt ovary D1 26 mm Rt ovary D2 13 mm Rt ovary D3 12 mm Rt ovary Vol 2.0 cm Left Ovary Lt ovary: Visualized Lt ovary morphology: premenopausal with dominant follicle Lt ovary D1 36 mm Lt ovary D2 23 mm Lt ovary D3 23 mm Lt ovary Vol 9.9 cm Lt ovarian follicle D1 22.8 mm Lt ovarian follicle D2 17.8 mm Lt ovarian follicle mean 20.3 mm Lt ovarian follicle vol 3.762 cm Cul de Sac Visualized. free fluid visualized: small Performed By: Mignon Galarza RDMS Read By: Chelsey Moy M.D. [facility] 07-21-2024 Note HNO ID: [id number] Author: CHELSEY MOY MD Service: ? Author Type: Physician Type: Progress Notes Filed: 07/21/2024 13:40 Note Text: The patient presents for requested ultrasound. Full report available in the Imaging tab in [employer]. Chelsey Moy MD [facility] 07-21-2024 History of Present illness Narrative The patient presents for requested ultrasound. Full report available in the Imaging tab in [employer]. Chelsey Moy MD documented in this encounter [facility] 07-01-2024 Telephone encounter Note Pt notified. Amy Chapa RN [facility] 07-01-2024 Miscellaneous Notes Pt notified. Amy Chapa RN Attempted to call patient. Sounded like someone picked up, but then call ended. Ana Maria Novoa RN Left message for patient to call office. Ana Maria Novoa RN ----- Message from Ara Hwang MD sent at 06/30/2024 8:23 AM EST ----- Notify pt +BV will send in flagyl documented in this encounter [facility] 07-01-2024 Telephone encounter Note Attempted to call patient. Sounded like someone picked up, but then call ended. Ana Maria Novoa RN [facility] 06-30-2024 Telephone encounter Note Left message for patient to call office. Ana Maria Novoa RN [facility] 06-30-2024 Telephone encounter Note ----- Message from Ara Hwang MD sent at 06/30/2024 8:23 AM EST ----- Notify pt +BV will send in flagyl [facility] 06-30-2024 Telephone encounter Note See result note Flagyl sent in [facility] 06-30-2024 Miscellaneous Notes See result note Flagyl sent in documented in this encounter [facility] 06-26-2024 Note HNO ID: [id number] Author: ARA HWANG MD Service: ? Author Type: Physician Type: Progress Notes Filed: 06/27/2024 09:07 Note Text: Closing Manager offered: Patient declinesAishwarya Hopkins is a 34 year old who presents for an annual gynecologic exam with complaints, heavy bleeding and bad cramps . Menses: cycle length unknown but she reports regular, monthly menstrual cycles. Bleeding heavy with clotting for 3 days, and then light 3-4 days. 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 History Comments: Sexual Activity: Yes; Male Contraception: Condom, Tubal Ligation PAST MEDICAL HISTORY Diagnosis Date depression Fracture of elbow Left Gestational hypertension, third trimester IC (interstitial cystitis) depression Seizure (HCC) with use of wellbutrin PAST SURGICAL HISTORY Procedure Laterality Date DELIVERY ONLY 10/03/2019 C/S low transverse DELIVERY ONLY 06/25/2021 [facility] COLONOSCOPY PAST SURGICAL HISTORY OF wisdom teeeth SALPINGECTOMY Bilateral 06/25/2021 FAMILY HISTORY Problem Relation Age of Onset No Known Problems Mother No Known Problems Father No Known Problems Brother No Known Problems Brother Depression Maternal Grandmother Prostate Cancer Maternal Grandfather Breast Cancer Paternal Grandmother Heart Paternal Grandmother Heart Paternal Grandfather Breast Cancer Maternal Aunt Great Aunt No Known Problems Daughter SOCIAL HISTORY Social History Tobacco Use Smoking status: Never Smokeless tobacco: Never Vaping Use Vaping status: Never Used Substance Use Topics Alcohol use: No Drug use: No REVIEW OF SYSTEMS Abdomen: No abdominal pain, nausea, vomiting, diarrhea, or constipation. No bloating, early satiety, indigestion, or increased flatulence. Bladder: No dysuria, gross hematuria, urinary frequency, urinary urgency, or incontinence. Breast: No breast lumps, nipple d/c, overlying skin changes, redness or skin retraction. Allergies and current medication updated:Yes SENSITIVE EXAM: The sensitive examination was discussed with the Patient or Patient's Authorized Molder Feeder. As applicable, any other physician, advance practice provider, medical student, or other health professional student that will be observing or involved in the sensitive examination for educational or training purposes was discussed with the Patient or Authorized Molder Feeder. The Patient or Authorized Molder Feeder has agreed to proceed with the sensitive examination. (Sensitive examination includes inspection and/or palpation of the breasts, pelvis, prostate and anorectal regions). EXAM: BP 100/60 Ht 5' 4 (1.63m) Wt 146 lb 3.2 oz (66.3kg) LMP 06/12/2024 BMI 25.08 kg/(m2). GENERAL: pleasant, female in no apparent distress HEENT: Normocephalic and atraumatic NECK: full range of motion DERMATOLOGY: Normal, without lesions, non-icteric, and non-hirsute BREAST: soft, non-tender, symmetric, no dominant mass, normal nipple-areolar complex, no lymphadenopathy, and no nipple discharge CHEST: Normal inspiratory effort ABDOMEN: soft, non-tender, and no masses PELVIC: external genitalia normal, normal Bartholin's glands, urethra, Confluence's glands, no vulvar lesions, no cervical lesions, good vaginal support, physiologic discharge present, normal appearing perineal body and perianal region BIMANUAL: uterus normal size, shape and consistency, no adnexal masses, and non-tender RECTOVAGINAL: deferred. NEURO: exam grossly non-focal EXTREMITIES: normal ASSESSMENT/PLAN: 1) Health maintenance: Pap done with HPV. Nutrition, exercise and routine health maintenance exams reviewed. Menorrhagia and dysmenorrhea: Discussed possible endometriosis given her description of pain and bleeding? Check pelvic US. Had recent CBC, TSH. Discussed hormonal contraception options. She reports migraines with aura. Recommended Mirena IUD Vaginal discharge: Check BV, yeast. The patient feels as if she gets frequent yeast infections and will use Monistat if needed. Start probiotic and reviewed vulvar care and hygiene measures 2) Contraception: tubal sterilization. Contraceptive options reviewed and information provided. 3) STD screening: Declined STD check. 4) Follow up one year or sooner as needed Ara Hwang DO [facility] 06-26-2024 History of Present illness Narrative Closing Manager offered: Patient declines. Kellie is a 34 year old who presents for an annual gynecologic exam with complaints, heavy bleeding and bad cramps . Menses: cycle length unknown but she reports regular, monthly menstrual cycles. Bleeding heavy with clotting for 3 days, and then light 3-4 days. 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 History Comments: Sexual Activity: Yes; Male Contraception: Condom, Tubal Ligation PAST MEDICAL HISTORY Diagnosis Date depression Fracture of elbow Left Gestational hypertension, third trimester IC (interstitial cystitis) depression Seizure (HCC) with use of wellbutrin PAST SURGICAL HISTORY Procedure Laterality Date DELIVERY ONLY 10/03/2019 C/S low transverse DELIVERY ONLY 06/25/2021 [facility] COLONOSCOPY PAST SURGICAL HISTORY OF wisdom teeeth SALPINGECTOMY Bilateral 06/25/2021 FAMILY HISTORY Problem Relation Age of Onset No Known Problems Mother No Known Problems Father No Known Problems Brother No Known Problems Brother Depression Maternal Grandmother Prostate Cancer Maternal Grandfather Breast Cancer Paternal Grandmother Heart Paternal Grandmother Heart Paternal Grandfather Breast Cancer Maternal Aunt Great Aunt No Known Problems Daughter SOCIAL HISTORY Social History Tobacco Use Smoking status: Never Smokeless tobacco: Never Vaping Use Vaping status: Never Used Substance Use Topics Alcohol use: No Drug use: No REVIEW OF SYSTEMS Abdomen: No abdominal pain, nausea, vomiting, diarrhea, or constipation. No bloating, early satiety, indigestion, or increased flatulence. Bladder: No dysuria, gross hematuria, urinary frequency, urinary urgency, or incontinence. Breast: No breast lumps, nipple d/c, overlying skin changes, redness or skin retraction. Allergies and current medication updated:Yes SENSITIVE EXAM: The sensitive examination was discussed with the Patient or Patient's Authorized Molder Feeder. As applicable, any other physician, advance practice provider, medical student, or other health professional student that will be observing or involved in the sensitive examination for educational or training purposes was discussed with the Patient or Authorized Molder Feeder. The Patient or Authorized Molder Feeder has agreed to proceed with the sensitive examination. (Sensitive examination includes inspection and/or palpation of the breasts, pelvis, prostate and anorectal regions). EXAM: BP 100/60 Ht 5' 4 (1.63m) Wt 146 lb 3.2 oz (66.3kg) LMP 06/12/2024 BMI 25.08 kg/(m^2). GENERAL: pleasant, female in no apparent distress HEENT: Normocephalic and atraumatic NECK: full range of motion DERMATOLOGY: Normal, without lesions, non-icteric, and non-hirsute BREAST: soft, non-tender, symmetric, no dominant mass, normal nipple-areolar complex, no lymphadenopathy, and no nipple discharge CHEST: Normal inspiratory effort ABDOMEN: soft, non-tender, and no masses PELVIC: external genitalia normal, normal Bartholin's glands, urethra, Confluence's glands, no vulvar lesions, no cervical lesions, good vaginal support, physiologic discharge present, normal appearing perineal body and perianal region BIMANUAL: uterus normal size, shape and consistency, no adnexal masses, and non-tender RECTOVAGINAL: deferred. NEURO: exam grossly non-focal EXTREMITIES: normal ASSESSMENT/PLAN: 1) Health maintenance: Pap done with HPV. Nutrition, exercise and routine health maintenance exams reviewed. Menorrhagia and dysmenorrhea: Discussed possible endometriosis given her description of pain and bleeding? Check pelvic US. Had recent CBC, TSH. Discussed hormonal contraception options. She reports migraines with aura. Recommended Mirena IUD Vaginal discharge: Check BV, yeast. The patient feels as if she gets frequent yeast infections and will use Monistat if needed. Start probiotic and reviewed vulvar care and hygiene measures 2) Contraception: tubal sterilization. Contraceptive options reviewed and information provided. 3) STD screening: Declined STD check. 4) Follow up one year or sooner as needed Ara Hwang DO documented in this encounter [facility] 05-01-2024 Telephone encounter Note RX loaded Next ov 08/11/24 [facility] 05-01-2024 Miscellaneous Notes RX loaded Next ov 08/11/24 Ordering provider: Eloy Gabriel Date of last office visit: 01.18.24 Date of next office visit: 08.11.24 Updated/Validated preferred pharmacy: Yes Patient instructed to contact the pharmacy prior to picking up the medication: Yes (1) Medication name: sertraline (Zoloft) 25 MG tablet Medication dosage: 25 mg (Miligrams Monthly quantity needed: 90 How many day supply requestin days Medication route: oral (PO) Medication administration time(s): daily If taking medication PRN, reason for taking medication: N/A If this is a controlled substance do you receive this or any other controlled medication from any other doctor or facility: N/A Date of last refill (see medication tab): 02.05.24 (2) Medication name: sertraline (Zoloft) 100 MG tablet Medication dosage: 100 mg (Miligrams Monthly quantity needed: 90 How many day supply requestin days Medication route: oral (PO) Medication administration time(s): daily If taking medication PRN, reason for taking medication: N/A If this is a controlled substance do you receive this or any other controlled medication from any other doctor or facility: N/A Date of last refill (see medication tab): 02.05.24 documented in this encounter [facility] 05-01-2024 Telephone encounter Note Ordering provider: Eloy Gabriel Date of last office visit: 01.18.24 Date of next office visit: 08.11.24 Updated/Validated preferred pharmacy: Yes Patient instructed to contact the pharmacy prior to picking up the medication: Yes (1) Medication name: sertraline (Zoloft) 25 MG tablet Medication dosage: 25 mg (Miligrams Monthly quantity needed: 90 How many day supply requestin days Medication route: oral (PO) Medication administration time(s): daily If taking medication PRN, reason for taking medication: N/A If this is a controlled substance do you receive this or any other controlled medication from any other doctor or facility: N/A Date of last refill (see medication tab): 02.05.24 (2) Medication name: sertraline (Zoloft) 100 MG tablet Medication dosage: 100 mg (Miligrams Monthly quantity needed: 90 How many day supply requestin days Medication route: oral (PO) Medication administration time(s): daily If taking medication PRN, reason for taking medication: N/A If this is a controlled substance do you receive this or any other controlled medication from any other doctor or facility: N/A Date of last refill (see medication tab): 02.05.24 [facility] 02-05-2024 Evaluation + Plan note Associated Problem(s): Nausea and vomiting - Chronic and ongoing and unstable, agrees to follow-up with [facility] for ongoing issues, reports previous colonoscopies and find multiple colon polyps [facility] 02-05-2024 Miscellaneous Notes Associated Problem(s): Nausea and vomiting - Chronic and ongoing and unstable, agrees to follow-up with [facility] for ongoing issues, reports previous colonoscopies and find multiple colon polyps Associated Problem(s): Migraine - Chronic and unstable has tried Maxalt but suffered more side effects associate with medication is reluctant to continue we will do a trial of Fioricet. Discussed possible use of Nurtec in the future if symptoms persist Associated Problem(s): History of depression - Chronic and unstable will increase her Zoloft up to 125 mg daily. documented in this encounter [facility] 02-05-2024 Evaluation + Plan note Associated Problem(s): Migraine - Chronic and unstable has tried Maxalt but suffered more side effects associate with medication is reluctant to continue we will do a trial of Fioricet. Discussed possible use of Nurtec in the future if symptoms persist [facility] 02-05-2024 Evaluation + Plan note Associated Problem(s): History of depression - Chronic and unstable will increase her Zoloft up to 125 mg daily. [facility] 02-05-2024 History of Present illness Narrative Images from the original note were not included. [facility] [address] [place] [address] [address] [facility] [address] Dept: [phone] Dept Loc: [phone] Visit type: Established Patient Reason for Visit: Follow-up (Med check) Assessment and Plan 1. Migraine with aura and without status migrainosus, not intractable Assessment & Plan: - Chronic and unstable has tried Maxalt but suffered more side effects associate with medication is reluctant to continue we will do a trial of Fioricet. Discussed possible use of Nurtec in the future if symptoms persist Orders: - vcfbdubigb-jrahephdqmphr-yyvxwhol 50-325-40 MG tablet; Take 1 tablet by mouth every 6 hours as needed for headaches or migraine. Use no more than 5/day, 10/week, 30/month., Starting Sun02/05/2024, Until Dori 10/02/2024 at 2359, Normal - Comprehensive metabolic panel 2. History of depression Assessment & Plan: - Chronic and unstable will increase her Zoloft up to 125 mg daily. Orders: - sertraline (Zoloft) 100 MG tablet; Take 1 tablet (100 mg) by mouth daily., Starting Sun02/05/2024, Until 08/03/2024, Normal - sertraline (Zoloft) 25 MG tablet; Take 1 tablet (25 mg) by mouth daily., Starting Sun02/05/2024, Until 08/03/2024, Normal - Comprehensive metabolic panel 3. Screening for thyroid disorder - TSH 4. Screening for deficiency anemia - CBC auto differential 5. Screening for diabetes mellitus - Comprehensive metabolic panel 6. Nausea and vomiting, unspecified vomiting type Assessment & Plan: - Chronic and ongoing and unstable, agrees to follow-up with [facility] for ongoing issues, reports previous colonoscopies and find multiple colon polyps Orders: - Celiac reflex panel 7. Dysmenorrhea Comments: Having menstrual issues irregular and heavy bleeding at times with underlying history of iron deficiency. Orders: - CBC auto differential - Ferritin - Iron and TIBC Follow up for Next scheduled follow-up. Subjective HPI this is a 33-year-old female underlying history of anxiety depression migraines continues on Maxalt and Zoloft returns to the office today for medical well check and medication refill. Patient's last office visit was a year ago at that time she was treated for migraines with Maxalt. Made nauseated so really doesn't want any more right now. Still getting migraines, 3-4 a month, Feeling like a lack of motivation, have been on zoloft for awhile, Have been taking faithfully without issues. But feeling like mood mood swings are ongoing and would like to request possibly increasing her medication to help assist with the mood swings and anxiety. Will follow up with PHOTO MACHINE OPERATOR for ongoing female health Having issues with diarrhea and constipation and occ blood in stool and have had colonoscopy in the past and polyps, and sees Dr. Green, in [place]. Patient does report that her menses seem to be slightly irregular and heavy at times she is concerned she does have a PHOTO MACHINE OPERATOR. She will follow-up for all her PHOTO MACHINE OPERATOR health as she states she has had previous negative exams in the past. Patient agrees to follow-up with him in the near future. Is concerned that always having continued irregular periods discussed possible hormone imbalance contributing to migraine cephalgia. Review of Systems Constitutional: Negative for chills and fever. HENT: Negative for congestion and sore throat. Respiratory: Negative for cough and shortness of breath. Cardiovascular: Negative for chest pain. Gastrointestinal: Positive for blood in stool, constipation and diarrhea. Negative for abdominal pain, nausea and vomiting. Genitourinary: Positive for vaginal bleeding (heavy and irreg periods,). Negative for difficulty urinating, dysuria, frequency and urgency. Musculoskeletal: Negative for back pain. Neurological: Positive for headaches. Negative for dizziness and light-headedness. All other systems reviewed and are negative. Allergies Allergen Reactions Bupropion Other reaction(s): Other, Other (See Comments), Other: See Comments, Other: See Comments sizure Other reaction(s): Other, Other: See Comments seizure seizure Outpatient Medications Prior to Visit Medication Sig Dispense Refill acetaminophen (Tylenol) 325 MG tablet Take 650 mg by mouth. sertraline (Zoloft) 100 MG tablet Take 1 tablet (100 mg) by mouth daily. 30 tablet 0 rizatriptan (Maxalt) 10 MG tablet Take 1 tablet (10 mg) by mouth Once as needed for migraine. May repeat in 2 hours if unresolved. Do not exceed 30 mg in 24 hours. 9 tablet 2 No facility-administered medications prior to visit. Past Medical History: Diagnosis Date Chronic constipation 2017 H/O colonoscopy 07/[address] Green- due 2030 History of colonic polyps 10/2017 [facility]- Dr. Agarwal History of depression 2010 normal echocardiogram and Holter monitor for workup for panic in 2010 History of infectious mononucleosis 2010 History of renal stone 09/2015 spontaneous resolution-- [facility] per Dr. Posada Migraine 2012 neg [facility] head 02/23 and [facility]/[address] [facility] Visit for routine validation specialist exam [facility], Dr. Brock Mclean in [place] Social History Tobacco Use Smoking status: Never Smokeless tobacco: Never Substance Use Topics Alcohol use: No Alcohol/week: 0.0 standard drinks of alcohol Past Surgical History: Procedure Laterality Date SECTION (HISTORICAL) 2010 SECTION (HISTORICAL) 2019 COLONOSCOPY 07/[address] Green- due 2030 COLONOSCOPY 10/2017 small polyp- Dr. Agarwal, [place] TUBAL LIGATION 06/2021 UPPER GASTROINTESTINAL ENDOSCOPY 10/2017 negative Family History Problem Relation Name Age of Onset Depression Mother Danielle Arroyo No Known Problems Father Vinay No Known Problems Brother Vinay No Known Problems Brother Brien Cancer Paternal Grandmother Objective BP 90/60 Pulse 73 Temp 36.6 C (97.8 F) (Temporal) Ht 5' 5 (1.651 m) Wt 138 lb 6.4 oz (62.8 kg) SpO2 98% BMI 23.03 kg/m Physical Exam Vitals reviewed. Constitutional: General: She is not in acute distress. Appearance: Normal appearance. She is not ill-appearing or toxic-appearing. HENT: Right Ear: Tympanic membrane and ear canal normal. Left Ear: Tympanic membrane and ear canal normal. Nose: No congestion or rhinorrhea. Mouth/Throat: Pharynx: No oropharyngeal exudate. Eyes: General: No scleral icterus. Conjunctiva/sclera: Conjunctivae normal. Pupils: Pupils are equal, round, and reactive to light. Cardiovascular: Rate and Rhythm: Normal rate and regular rhythm. Heart sounds: Normal heart sounds. Pulmonary: Effort: Pulmonary effort is normal. No respiratory distress. Breath sounds: Normal breath sounds. Abdominal: General: Bowel sounds are normal. There is no distension. Palpations: Abdomen is soft. There is no mass. Tenderness: There is no abdominal tenderness. There is no guarding. Musculoskeletal: Cervical back: Normal range of motion and neck supple. Right lower leg: No edema. Left lower leg: No edema. Skin: General: Skin is warm and dry. Neurological: Mental Status: She is alert. Psychiatric: Mood and Affect: Mood normal. Data Reviewed and Summarized Labs: Imaging/Testing: Eloy Gabriel PA-C 02/05/2024 Please note that portions of this note may have been completed with voice recognition software. Documentation reviewed prior to signing but minor errors in head chef may have occurred. documented in this encounter [facility] 06-06-2024 Telephone encounter Note Last OV:01/17/23 Scheduled:02/05/24 [facility] 01-17-2024 Miscellaneous Notes Last OV:01/17/23 Scheduled:02/05/24 Name of caller: Kellie Contact phone number: [phone] Relationship to Patient: patient Provider: Dr Crockett Practice: [facility] Chief Complaint/Reason for Call: Patient is requesting a small prescription of Zoloft until she is able to come in for appointment on 02/05/24 with Eloy. This was the earliest appointment available. She stated that she will be out in 2 days. Please advise Best time of day caller can be reached: any Patient advised that office/PCP has 24-48 business hours to return their call: N/A documented in this encounter [facility] 01-17-2024 Telephone encounter Note Name of caller: Kellie Contact phone number: [phone] Relationship to Patient: patient Provider: Dr Crockett Practice: [facility] Chief Complaint/Reason for Call: Patient is requesting a small prescription of Zoloft until she is able to come in for appointment on 02/05/24 with Eloy. This was the earliest appointment available. She stated that she will be out in 2 days. Please advise Best time of day caller can be reached: any Patient advised that office/PCP has 24-48 business hours to return their call: N/A [facility] 01-17-2023 History of Present illness Narrative Images from the original note were not included. [facility] [address] [facility] [address] Dept: [phone] Dept Loc: [phone] Visit type: Established Patient Reason for Visit: Flank Pain and Urinary Frequency (Burning, ) Assessment and Plan 1. Dysuria Comments: Acute dysuria urine dip does show signs of urinary tract infection and will be sent for formal culture. Orders: - AMB POC URINE DIP STICK MANUAL W/O MICRO - Urine culture (clean catch) - cephalexin (Keflex) 500 MG capsule; Take 1 capsule (500 mg) by mouth 3 times daily for 21 days., Starting Sun01/17/2023, Until Sun02/07/2023, Normal 2. Other migraine without status migrainosus, not intractable Comments: Chronic history of the same requesting prophylaxis medicine. Orders: - rizatriptan (Maxalt) 10 MG tablet; Take 1 tablet (10 mg) by mouth Once as needed for migraine. May repeat in 2 hours if unresolved. Do not exceed 30 mg in 24 hours., Starting Sun01/17/2023, Until Sun02/16/2023 at 2359, Normal Patient does have an ongoing history of migraines this is acute on chronic exacerbation no current migraine requesting medications for periodic exacerbations we will try Maxalt. Patient has seen neurology in the past, recommend report any new or unusual symptoms. Follow up in about 1 year (around 01/18/2024), or if symptoms worsen or fail to improve, for call sunday if symptoms not improving. . She has no acute CVA tenderness to percussion or palpation and although she does have some right flank pain I did encourage her that should she start developing fever chills nausea vomiting worsening pain she should seek evaluation in the ER my concern would be an obstructive uropathy secondary to a kidney stone causing the infection she certainly at this point time does not appear septic or toxic or in acute distress. She is currently afebrile she was comfortable with this plan all questions were answered at the bedside. It should be noted here patient's blood pressure was slightly low however review of her chart show that she chronically runs a low blood pressure. This in no way indicates current signs of septicemia or toxicity. Subjective HPI this is a 32-year-old female with an underlying history of migraines depression and chronic constipation who contacted the [facility] for immediate same-day evaluation for right flank pain that started approximately 3 days ago. She states it is worse at night. Has some nausea and headaches and chills with it. She will states she has some burning with urination. She endorses a sensation that he feels like she cannot completely empty her bladder. However denies any associated vomiting or diarrhea denies any abdominal pain, but is having right flank pain, does have sense of urgency. She did states she had some right-sided back pain she has a history of kidney stones thought maybe she had a kidney stone last night symptoms seem to be better today but still present. Sexually active, now stopped breast feeding and having BM issues, migraine issues and frequent UTI symptoms, periodic yeast infections. H/o migraines in the past, and has seen neurology without any resolutions. She denies any current blurred vision double vision photophobia or photosensitivity denies any numbness ting arms legs. Review of Systems Constitutional: Negative for chills and fever. HENT: Negative for congestion and sore throat. Respiratory: Negative for cough and shortness of breath. Cardiovascular: Negative for chest pain. Gastrointestinal: Negative for abdominal pain, diarrhea, nausea and vomiting. Genitourinary: Positive for dysuria, flank pain, frequency and urgency. Negative for difficulty urinating, menstrual problem, pelvic pain, vaginal bleeding, vaginal discharge and vaginal pain. Musculoskeletal: Negative for back pain. Neurological: Positive for headaches (Periodic and intermittent in nature). Negative for dizziness, weakness and light-headedness. All other systems reviewed and are negative. Allergies Allergen Reactions Bupropion Other reaction(s): Other, Other (See Comments), Other: See Comments, Other: See Comments sizure Other reaction(s): Other, Other: See Comments seizure seizure Outpatient Medications Prior to Visit Medication Sig Dispense Refill acetaminophen (Tylenol) 325 MG tablet Take 650 mg by mouth. sertraline (Zoloft) 100 MG tablet Take 1 tablet (100 mg) by mouth daily. 90 tablet 3 famotidine (Pepcid) 20 MG tablet Take 20 mg by mouth in the morning and 20 mg in the evening. No facility-administered medications prior to visit. Past Medical History: Diagnosis Date Chronic constipation 2017 H/O colonoscopy 07/[address] Green- due 2030 History of colonic polyps 10/2017 [facility]- Dr. Agarwal History of depression 2010 normal echocardiogram and Holter monitor for workup for panic in 2010 History of infectious mononucleosis 2010 History of renal stone 09/2015 spontaneous resolution-- [facility] per Dr. Posada Migraine 2012 neg MRI head 02/23 and 08/30 ([facility]) Visit for routine validation specialist exam [facility], Dr. Brock Mclean in [place] Social History Tobacco Use Smoking status: Never Smokeless tobacco: Never Substance Use Topics Alcohol use: No Alcohol/week: 0.0 standard drinks of alcohol Past Surgical History: Procedure Laterality Date SECTION (HISTORICAL) 2010 SECTION (HISTORICAL) 2019 COLONOSCOPY 07/[address] Green- due 2030 COLONOSCOPY 10/2017 small polyp- Dr. Agarwal, [place] TUBAL LIGATION 06/2021 UPPER GASTROINTESTINAL ENDOSCOPY 10/2017 negative Family History Problem Relation Name Age of Onset Depression Mother Danielle Arroyo No Known Problems Father Vinay No Known Problems Brother Vinay No Known Problems Brother Brien Cancer Paternal Grandmother Objective BP 94/62 Pulse 68 Temp 36.4 C (97.5 F) (Temporal) Ht 5' 5 (1.651 m) Wt 139 lb (63 kg) SpO2 98% BMI 23.13 kg/m Physical Exam Vitals reviewed. Constitutional: General: She is not in acute distress. Appearance: Normal appearance. She is not ill-appearing or toxic-appearing. Eyes: General: No scleral icterus. Conjunctiva/sclera: Conjunctivae normal. Pupils: Pupils are equal, round, and reactive to light. Cardiovascular: Rate and Rhythm: Normal rate and regular rhythm. Heart sounds: Normal heart sounds. Pulmonary: Effort: Pulmonary effort is normal. No respiratory distress. Breath sounds: Normal breath sounds. Abdominal: General: There is no distension. Palpations: There is no mass. Tenderness: There is abdominal tenderness. There is no right CVA tenderness, left CVA tenderness, guarding or rebound. Hernia: No hernia is present. Comments: Very mild tenderness was noted to the right flank but no CVA tenderness to percussion. Musculoskeletal: Cervical back: Normal range of motion and neck supple. Right lower leg: No edema. Left lower leg: No edema. Skin: General: Skin is warm and dry. Neurological: Mental Status: She is alert. Psychiatric: Mood and Affect: Mood normal. Data Reviewed and Summarized Labs: Imaging/Testing: Eloy Gabriel PA-C 01/17/2023 Please note that portions of this note may have been completed with voice recognition software. Documentation reviewed prior to signing but minor errors in head chef may have occurred. documented in this encounter [facility] 01-17-2023 Telephone encounter Note S: Patient spoke with [facility] nurse regarding flank pain. B: Onset of symptoms/concern 01-14-23 progressively worsening. A: Patient reports constant 4/10 right flank pain-wose at night, frequency, nausea, headache, chills (hasn't checked temperature), burning with urination. Feel like she unable to empty bladder completely. Denies known fever, abdominal pain, vomiting, or leg weakness. R: Appointment scheduled for today 01-17-23 at 2:20 with DIANA Means. Please complete your eCheck-in via [employer] prior to your appointment. [employer] link sent via text message. You will want to arrive 15 minutes early, bring your photo ID, insurance card, and medication list. Discussed the importance of staying hydrated and possibly adding on cranberry juice/supplement. Patient understands care advice. No further needs at this time. Patient instructed to call back with new or worsening symptoms. Reason for Disposition Pain or burning with passing urine (urination) Protocols used: Flank [id number] [facility] 01-17-2023 Miscellaneous Notes S: Patient spoke with [facility] nurse regarding flank pain. B: Onset of symptoms/concern 01-14-23 progressively worsening. A: Patient reports constant 4/10 right flank pain-wose at night, frequency, nausea, headache, chills (hasn't checked temperature), burning with urination. Feel like she unable to empty bladder completely. Denies known fever, abdominal pain, vomiting, or leg weakness. R: Appointment scheduled for today 01-17-23 at 2:20 with DIANA Means. Please complete your eCheck-in via [employer] prior to your appointment. [employer] link sent via text message. You will want to arrive 15 minutes early, bring your photo ID, insurance card, and medication list. Discussed the importance of staying hydrated and possibly adding on cranberry juice/supplement. Patient understands care advice. No further needs at this time. Patient instructed to call back with new or worsening symptoms. Reason for Disposition Pain or burning with passing urine (urination) Protocols used: Flank [id number] documented in this encounter [facility] 11-14-2022 History of Present illness Narrative Images from the original note were not included. [facility] [address] [facility] [address] Visit type: Established Patient Reason for Visit: Follow-up (6 month med check) Assessment / Plan: Kellie was seen today for follow-up. Diagnoses and all orders for this visit: History of depression (Primary) Comments: Very stable, continue Zoloft, recheck 1 year Other orders - sertraline (Zoloft) 100 MG tablet; Take 1 tablet (100 mg) by mouth daily. Subjective: Patient ID: Kellie Mijares is a 32 y.o. female. HPI patient presents for refill on Zoloft which she takes to help prevent depression. Presently she is feeling well. Try to cut down on the meds but got GI issues. 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 Her is very supportive. She continues not to smoke and drink and keep to healthy lifestyle. Review of Systems PHOTO MACHINE OPERATOR exams up-to-date. No recent concerns. No recent earache sore throat or cough. No chest pain or wheezing. Eating and voiding well. Bowels are regular. Menses are normal and PHOTO MACHINE OPERATOR exams up-to-date. She sleeps well. Has some hobbies and tries to stay active with her kids and family. Of note colonoscopy due in 2030 Allergies Allergen Reactions Bupropion Other reaction(s): Other, Other (See Comments), Other: See Comments, Other: See Comments sizure Other reaction(s): Other, Other: See Comments seizure seizure Current Outpatient Medications on File Prior to Visit Medication Sig Dispense Refill acetaminophen (Tylenol) 325 MG tablet Take 650 mg by mouth. famotidine (Pepcid) 20 MG tablet Take 20 mg by mouth in the morning and 20 mg in the evening. [DISCONTINUED] sertraline (Zoloft) 100 MG tablet Take 1 tablet (100 mg) by mouth daily. 30 tablet 0 No current facility-administered medications on file prior to visit. Patient Active Problem List Diagnosis Migraine History of depression Chronic constipation History of colonic polyps History of infectious mononucleosis Social History Tobacco Use Smoking status: Never Smokeless tobacco: Never Substance Use Topics Alcohol use: No Alcohol/week: 0.0 standard drinks Past Surgical History: Procedure Laterality Date SECTION (HISTORICAL) 2010 SECTION (HISTORICAL) 2019 COLONOSCOPY 07/[address] Green- due 2030 COLONOSCOPY 10/2017 small polyp- [facility] Chang TUBAL LIGATION 06/2021 UPPER GASTROINTESTINAL ENDOSCOPY 10/2017 negative Family History Problem Relation Name Age of Onset Depression Mother Danielle Arroyo No Known Problems Father Vinay No Known Problems Brother Vinay No Known Problems Brother Brien Cancer Paternal Grandmother Objective: BP 93/59 Pulse 76 Temp 36.5 C (97.7 F) (Temporal) Ht 5' 5 (1.651 m) Wt 145 lb (65.8 kg) SpO2 95% BMI 24.13 kg/m Physical Exam she appears very well. Had good insight eye contact and is well-groomed. No thyroid or neck masses. No adenopathy. Heart is regular without murmurs. Lungs are clear. Abdomen soft nontender without masses pain or ascites. Extremities are pink. Physiologic reflexes. documented in this encounter [facility] 10-19-2022 Telephone encounter Note Tried to call patient no v/m set up. Patient was all sent a letter to call and schedule an apt. [facility] 10-19-2022 Miscellaneous Notes Tried to call patient no v/m set up. Patient was all sent a letter to call and schedule an apt. Unable to reach patient by telephone. Unable to leave a voicemail. No voicemail set up Patient overdue for checkup. She missed appointment in September. 1 month refill given Rx loaded Medication name: Sertraline HCl 100 MG Oral Tablet (ZOLOFT) Medication dosage: 100 mg (Miligrams Monthly quantity needed: 30 How many day supply requestin days Medication route: oral (PO) Medication administration time(s): daily If taking medication PRN, reason for taking medication: N/A If this is a controlled substance do you receive this or any other controlled medication from any other doctor or facility: N/A Ordering provider: Dr. Crockett Date of last office visit: 03/29/22 Date of next office visit: not found Date of last refill: (see medication tab): 03/29/22 Updated/Validated preferred pharmacy: Yes Patient instructed to contact the pharmacy prior to picking up the medication: Yes documented in this encounter [facility] 10-18-2022 Telephone encounter Note Unable to reach patient by telephone. Unable to leave a voicemail. [facility] 10-18-2022 Miscellaneous Notes Unable to reach patient by telephone. Unable to leave a voicemail. No voicemail set up Patient overdue for checkup. She missed appointment in September. 1 month refill given Rx loaded Medication name: Sertraline HCl 100 MG Oral Tablet (ZOLOFT) Medication dosage: 100 mg (Miligrams Monthly quantity needed: 30 How many day supply requestin days Medication route: oral (PO) Medication administration time(s): daily If taking medication PRN, reason for taking medication: N/A If this is a controlled substance do you receive this or any other controlled medication from any other doctor or facility: N/A Ordering provider: Dr. Crockett Date of last office visit: 03/29/22 Date of next office visit: not found Date of last refill: (see medication tab): 03/29/22 Updated/Validated preferred pharmacy: Yes Patient instructed to contact the pharmacy prior to picking up the medication: Yes documented in this encounter [facility] 10-17-2022 Telephone encounter Note No voicemail set up [facility] 10-17-2022 Miscellaneous Notes No voicemail set up Patient overdue for checkup. She missed appointment in September. 1 month refill given Rx loaded Medication name: Sertraline HCl 100 MG Oral Tablet (ZOLOFT) Medication dosage: 100 mg (Miligrams Monthly quantity needed: 30 How many day supply requestin days Medication route: oral (PO) Medication administration time(s): daily If taking medication PRN, reason for taking medication: N/A If this is a controlled substance do you receive this or any other controlled medication from any other doctor or facility: N/A Ordering provider: Dr. Crockett Date of last office visit: 03/29/22 Date of next office visit: not found Date of last refill: (see medication tab): 03/29/22 Updated/Validated preferred pharmacy: Yes Patient instructed to contact the pharmacy prior to picking up the medication: Yes documented in this encounter [facility] 10-16-2022 Telephone encounter Note Patient overdue for checkup. She missed appointment in September. 1 month refill given [facility] 10-16-2022 Miscellaneous Notes Patient overdue for checkup. She missed appointment in September. 1 month refill given Rx loaded Medication name: Sertraline HCl 100 MG Oral Tablet (ZOLOFT) Medication dosage: 100 mg (Miligrams Monthly quantity needed: 30 How many day supply requestin days Medication route: oral (PO) Medication administration time(s): daily If taking medication PRN, reason for taking medication: N/A If this is a controlled substance do you receive this or any other controlled medication from any other doctor or facility: N/A Ordering provider: Dr. Crockett Date of last office visit: 03/29/22 Date of next office visit: not found Date of last refill: (see medication tab): 03/29/22 Updated/Validated preferred pharmacy: Yes Patient instructed to contact the pharmacy prior to picking up the medication: Yes documented in this encounter [facility] 10-16-2022 Telephone encounter Note Rx loaded [facility] 10-13-2022 Telephone encounter Note Medication name: Sertraline HCl 100 MG Oral Tablet (ZOLOFT) Medication dosage: 100 mg (Miligrams Monthly quantity needed: 30 How many day supply requestin days Medication route: oral (PO) Medication administration time(s): daily If taking medication PRN, reason for taking medication: N/A If this is a controlled substance do you receive this or any other controlled medication from any other doctor or facility: N/A Ordering provider: Dr. Crockett Date of last office visit: 03/29/22 Date of next office visit: not found Date of last refill: (see medication tab): 03/29/22 Updated/Validated preferred pharmacy: Yes Patient instructed to contact the pharmacy prior to picking up the medication: Yes [facility] 03-27-2022 Miscellaneous Notes Per 03/06/22 phone note. Patient to contact PCP for refills. Attempted to notify patient. No answer. Unable to leave a voicemail. Mailbox not set up. Marry Raphael RN Requested Prescriptions Refused Prescriptions Disp Refills sertraline (ZOLOFT) 100 mg tablet 5 tablet 0 Sig: Take 1 tablet by mouth once daily for 5 days. Refused By: MARRY RAPHAEL RN Reason for Refusal: A Refill not appropriate Patient has been identified by name and date of : Yes Last office visit in this department 08/01/21 RX INSTRUCTIONS: Patient aware RX will be sent to pharmacy. No need to notify patient. Patient phones requesting refills as follows: Requested Prescriptions Pending Prescriptions Disp Refills sertraline (ZOLOFT) 100 mg tablet 5 tablet 0 Sig: Take 1 tablet by mouth once daily for 5 days. Please review and advise. Cherise Moya Pss documented in this encounter [facility] 03-07-2022 Miscellaneous Notes Patient notified. Ana Maria Novoa RN Attempted to notify patient. No answer and unable to leave a voicemail. Marry Raphael RN Recommend following up with PCP Patient calling regarding Zoloft. Currently on 100mg daily. Has been on it since 12/2019 after she had her first child. Last delivery 06/25/21. Feels like Zoloft isn't working as well anymore. Feeling more down, irritable and lack of motivation the past month. No thoughts of harming self or other. She does not see a counselor. Asking if there is a higher dose she could try. Does she need appointment instead with PCP? Ana Maria Novoa RN documented in this encounter [facility] 02-21-2022 Miscellaneous Notes Patient calling from [facility]-on vacation. Has not taken Zoloft since . Forgot medication-feeling groggy. When closes eyes feels like a little spinning like I could fall over. Denies any other symptoms. Patient would like 5 days supply called in to local pharmacy. She is aware this may not be covered by insurance-will pay out of pocket. COIP or other advice documented in this encounter [facility] 08-03-2021 Note [facility] Medical Records Department [address] [place] [address] History Physical Exam 08/03/21 0842 MR#: [id number] Acct: [id number] Name: KELLIE MIJARES Rep #: [id number] : 1990 31 From: Emmy Green MD PCP: Dr. Andres Crockett, DO [place] [facility] [place] [address] HPI - General HPI Narrative KELLIE MIJARES, is a 31 F who presents for follow-up colonoscopy due to history of polyps???tubular adenoma at the rectum removed with saline lift and snare in October 2017. Patient was recommended come back in 3 years however patient patient was at the time. She just delivered a month ago. Patient states she has bowel movements at least about every 2 days, denies any blood. Patient denies any chronic abdominal pain/nausea/vomiting/reflux since . [facility] Medical History (Updated 08/03/21 @ 09:[address] Emmy Green MD) Abdominal pain in female Anxiety Depression Diarrhea Gestational HTN Gestational hypertension Hematochezia History of stress test Migraine headache Migraines Non-smoker Oligohydramnios depression Seizures Tarry stool Wears glasses Home Medications vit no.[id number] 1 tab PO DAILY 08/28/19 [History Last Taken 06/24/21 21:00] sertraline [Zoloft] 100 mg PO DAILY 06/24/21 [History Last Taken 06/24/21 21:00] Allergy/AdvReac Type Severity Reaction Status Date / Time bupropion [From Wellbutrin] AdvReac Other Verified 08/03/21 09:04 Family History (Updated 09/26/17 @ 13:49 by Edwige Brand) Mother No problems noted. Surgical History (Updated 08/02/21 @ 11:33 by Neela Sykes) Delivery by section History of surgery Previous section Social History (Updated 09/27/17 @ 09:[address] Emmy Green MD) Smoking Status: Never smoker alcohol intake: never Past Medical/Surgical History Planned Operation Planned Operative Procedure/s: CSCOPE OPEN ACCESS S.O.S: No Previous Hospitalizations/Surgeries HX Hospitalizations: No Any Problems With Anesthesia: No You/Your Family Experience Fever (Hyperthermia) With Anes: No Cholinesterase deficiency: No Cardiovascular Hx Chest Pain within Last 2 months: No Hx of Irregular Heartbeat and/or Afib: Yes (irreg) Hx Heart Attack: No Hx Congestive Heart Failure: No Hx Rheumatic Fever: No Hx Hypertension: No Hx Internal Defibrillator: No Hx Pacemaker: No Hx Cardiac Catheterization: No Hx Cardiac Surgery/Stents/Etc.: No Hx Stress Test: No Hx Pain in Legs when Walking/Leg Cramps: No Respiratory Chronic Cough: No HX of Shortness of Breath: No Hoarseness: No Hx Chronic Obstructive Pulmonary Disease (COPD): No Hx Asthma: No Hx Emphysema: No Hx Sleep Apnea: No Hx Respiratory Tract Infection/Cold (presently): No Do You Snore Loudly (louder than talking or can be heard): No Do You Often Feel Tired/ Fatigued/ Sleepy Dring Daytime?: No Has Anyone Observed You Stop Breathing During Sleep?: No Result (for STOP score): Negative Hx Smoking: No Smoking Status: Never smoker Gastrointestinal Hx Gastroesophageal Reflux: No Hx Gastrointestinal Disorders: Yes (ibs) Hx Gastrointestinal Bleed: No Hx Ulcer: No Hx Hiatal Hernia: No Difficulty Chewing/Swallowing: No Special diet followed at home: No Hx Unplanned Weight Loss of 20#: No HX Unplanned Weight Gain of 20#: No Neurological Hx Seizures: Yes (LST SEIZURE 2 YEARS AGO) HX Syncope/Blackout Spells/Unconsciousness: No Hx Transient Ischemic Attacks (TIA): No Hx Multiple Sclerosis: No Hx Parkinson's Disease: No Hx Head/Neck Injury: No Hx Headaches: Yes (migraine) Hx Back Injury/Pain: Yes (GETS BACK SPASMS) Recent Onset of Speech Difficulty: No Restless Legs: No Does patient have nerve stimulator: No Blood Disorder Hx Leukemia: No Bleeding Tendencies: No Hx Deep Vein Thrombosis: No Hx High Cholesterol: No Blood Transmitted Disease: No Hx Hepatitis: No Hx Cirrhosis: No Hx Anemia: No Hx Blood Disorders: No Reproduction : No Is Patient Lactating: No Hx Hysterectomy: No Hx Tubal Ligation: No Are You Post Menopause: No Genitourinary Hx Renal Disease: No (kidney infection 1 week ago/resolved at this time) Musculoskeletal Hx Arthritis: No Hx Rheumatoid Arthritis: No Hx Gout: No Recent Onset of an Orthopedic Problem: No Endocrine Hx Diabetes: No Thyroid Disease: No Hx Steroid Therapy: No Psycho/Social Hx Substance Use: No Hx Alcohol Use: No Hx Anxiety: Yes Hx Depression: Yes Mental Illness: No Hx Dementia: No Miscellaneous Hx Cancer: No Recent Exposure to Contagious Disease: No Hx of C-Diff: No Any Loose Teeth: No Allergies bupropion [From Wellbutrin] Adverse Reaction (Verified 08/03/21 09:04) Other pt reports medication gives her seizures Discharge Is Pt Admitted From a (more content not included)... [facility] 06-28-2021 Note [facility] Medical Records Department [address] [place] [address] Discharge Summary 06/28/21 0847 MR#: [id number] Acct: [id number] Name: KELLIE MIJARES Rep #: [id number] : 1990 31 From: Yojana Henry MD PCP: Dr. Andres Crockett DO Status:ADM IN Location: [id number] Providers Date of Admission: 06/24/21 Primary Care Physician: Dr. Andres Crockett DO Reason For Visit: REPEAT CSECTION Diagnosis Discharge Diagnosis (1) Delivery by section: Status: Acute (2) Encounter for sterilization: Status: Acute Code(s): Z30.2 - Encounter for sterilization (3) Gestational hypertension: Status: Acute Code(s): O13.9 - Gestational [-induced] hypertension without significant proteinuria, unspecified trimester Qualifiers: Trimester: third trimester Qualified Code(s): O13.3 - Gestational [-induced] hypertension without significant proteinuria, third trimester Medications at Discharge Home Medications vit no.[id number] 1 tab PO DAILY 08/28/19 sertraline [Zoloft] 100 mg PO DAILY 06/24/21 Hospital Course Operations - (Repeat low transverse section with bilateral salpingectomy performed on 06/25/2021.) Procedures None Summary of Care Provided Hospital Course: 31-year-old multigravida female who had a previous section presented for repeat section due to gestational hypertension. She also desired sterilization. The repeat section and bilateral salpingectomy were performed on 06/25/2021. By postoperative day #3 she was ambulating, urinating tolerating regular diet without difficulty. She had no symptoms of preeclampsia. Her blood pressures were stable. She was discharged home with routine instructions. She declined prescriptions. Pain was well controlled with ibuprofen and acetaminophen. She is to follow-up in the office in 3 to 7 days in room to move the bandage in 2 to 3 days. Patient states understanding of plan. Weight / BMI Weight Weight: 83.461 kg Body Mass Index (BMI) 30.6 ABG / Lab / Microbiology Data Result Diagrams: 06/26/21 04:10 06/24/21 22:10 Microbiology: Microbiology 06/24/21 23:50 Nasal Secretion SARS-CoV-2 Antigen (Rapid) - Final D/C Instructions Discharge Diet: No restrictions May resume sexual activity in: 4-6 weeks Lifting Restrictions: 20 pounds Additional Activity Instructions: Nothing in the vagina for 4-6 weeks. You may return to work/school in 6 weeks. Call your doctor if your incision/area has: Continuous Slow Oozing, Sudden Increased Bleeding, Increased Pain/ Swelling, Increased Redness and Foul Smelling Discharge Call your doctor if you observe: Fever of 101 or Higher and Using more than 1 pad per hour (for 2 hours) Suture Line Care: Avoid Pulling/Pushing and Avoid Pinching/Bending Cleanse incision/area with: Keep Dressing Clean Dry Please Follow Up With: Yojana Henry MD When: Call to make an appointment for an incision check in 1-2 [phone]. You will need a post check in 6 weeks. Meaningful Use Info Meaningful Use Diagnoses (Choose all that apply): None applicable Discharge Plan Admission Admit Date/Time: 06/24/21 23:15 Primary Reason for Your Visit: delivery Attending Provider: Ara Hwang Primary Care Provider: Andres Crockett Discharge Orders/Prescriptions Prescriptions: Continued vit no.[id number] 1 EACH tablet 1 tab PO DAILY RF: 0 sertraline [Zoloft] 100 mg Tablet 100 mg PO DAILY RF: 0 Referrals / Follow Up: Andres Crockett DO [Primary Care Provider] - Disposition Disposition (needs filled in before D/C Order can be placed): Home, Self Care 06/28/21 0852 Cosigner Signature (if applicable): CC: Dr. Andres Crockett DO; Dr. Yojana Henry MD Signed [facility] 12-01-2020 History of Past i llness Narrative Problem Noted Date Resolved Date Positive GBS test 12/01/2020 12/01/2020 Breech presentation 08/28/2019 10/17/2019 Overview: 08/28/19 - needs repeat US at 36-37 weeks - Andra Lyons MD Patient travels 03/03/2019 12/28/2020 Overview: 03/03/2019Patient traveled to [facility] in late July/august. Discussed Zika virus. Declines testing. TKRN documented as of this encounter (statuses as of 02/21/2022) [facility] History of Past illness Narrative* Problem Noted Date Resolved Date Positive GBS test 12/01/2020 12/01/2020 Breech presentation 08/28/2019 10/17/2019 Overview: 08/28/19 - needs repeat US at 36-37 weeks - Andra Lyons MD Patient travels 03/03/2019 12/28/2020 Overview: 03/03/2019Patient traveled to [facility] in late July/early August. Discussed Zika virus. Declines testing. TKRN documented as of this encounter (statuses as of 03/07/2022) [facility] History of Past illness Narrative* Problem Noted Date Resolved Date Positive GBS test 12/01/2020 12/01/2020 Breech presentation 08/28/2019 10/17/2019 Overview: 08/28/19 - needs repeat US at 36-37 weeks - Andra Lyons MD Patient travels 03/03/2019 12/28/2020 Overview: 03/03/2019Patient traveled to [facility] in late July/early August. Discussed Zika virus. Declines testing. TKRN documented as of this encounter (statuses as of 03/27/2022) [facility] note* Diagnosis History of depression- Primary Personal history of other mental disorder documented in this encounter [facility] note* Diagnosis Dysuria- Primary Other migraine without status migrainosus, not intractable [facility]* Diagnosis Other migraine without status migrainosus, not intractable [facility]* Diagnosis Migraine with aura and without status migrainosus, not intractable- Primary History of depression Personal history of other mental disorder Screening for thyroid disorder Screening for deficiency anemia Screening for other and unspecified deficiency anemia Screening for diabetes mellitus Nausea and vomiting, unspecified vomiting type Dysmenorrhea documented in this encounter [facility]* Diagnosis History of depression Personal history of other mental disorder documented [facility]* Diagnosis Encounter for gynecological examination (general) (routine) without abnormal findings- Primary Screening for cervical cancer Screening for malignant neoplasm of the cervix Encounter for screening for human papillomavirus (HPV) Special screening examination for human papillomavirus (HPV) Dysmenorrhea Excessive bleeding in premenopausal period Premenopausal menorrhagia documented in this encounter [facility] note* Diagnosis BV (bacterial vaginosis)- Primary Vaginitis and vulvovaginitis, unspecified documented in this encounter [facility] note* Diagnosis Dysmenorrhea- Primary Excessive bleeding in premenopausal period Premenopausal menorrhagia documented in this encounter [facility] note* Diagnosis Migraine with aura and without status migrainosus, not intractable- Primary History of depression Personal history of other mental disorder Screening for thyroid disorder Screening for deficiency anemia Screening for other and unspecified deficiency anemia Screening for diabetes mellitus Nausea and vomiting, unspecified vomiting type Dysmenorrhea Other migraine without status migrainosus, not intractable- Primary History of depression Personal history of other mental disorder Primary insomnia Persistent disorder of initiating or maintaining sleep documented in this encounter [facility] note* Diagnosis Migraine with aura and without status migrainosus, not intractable- Primary History of depression Personal history of other mental disorder Screening for thyroid disorder Screening for deficiency anemia Screening for other and unspecified deficiency anemia Screening for diabetes mellitus Nausea and vomiting, unspecified vomiting type Dysmenorrhea History of depression Personal history of other mental disorder [facility]* Diagnosis Migraine with aura and without status migrainosus, not intractable- Primary History of depression Personal history of other mental disorder Screening for thyroid disorder Screening for deficiency anemia Screening for other and unspecified deficiency anemia Screening for diabetes mellitus Nausea and vomiting, unspecified vomiting type Dysmenorrhea Migraine with aura and without status migrainosus, not intractable documented in this encounter [facility] for referral (narrative)* Diagnostic Procedure Only (Routine) - Authorized Specialty Diagnoses / Procedures Referred By Contac Referred To Contact [facility] Diagnoses Dysmenorrhea Excessive bleeding in premenopausal period Procedures PELVIC US I US PELVIC NONOBSTETRIC REAL-TIME IMAGE COMPLETE Ara Hwang MD [address] [place] [address] [place] [id number] Referral ID Status Reason Start Date Expiration Date Visits Requested Visits Authorized [id number] Authorized Auto-Generat ed Referral 06/26/2025 1 1 [facility] for visit Narrative* Diagnostic Procedure Only (Routine) - Closed Specialty Diagnoses / Procedures Referred By Contac t Referred To Contact [facility] Diagnoses Dysmenorrhea Excessive bleeding in premenopausal period Procedures PELVIC US WHI US PELVIC NONOBSTETRIC REAL-TIME IMAGE COMPLETE Ara Hwang MD [address] [place] [address] [address] Referral ID Status Reason Start Date Expiration Date V isits Requested Visits Authorized [id number] Closed Auto-Generate d Referral 06/26/2024 06/26/2025 1 1 [facility] Summary Purpose Family History No Family History Records FoundNo Family History Records FoundNo Family History Records Found Advance Directives No Advanced Directives Records FoundNo Advanced Directives Records FoundNo Advanced Directives Records Found Additional Source Comments INFORMATION SOURCE (unrecogn ized section and content) DATE CREATED AUTHOR 09/24/2021 [facility] DATE CREATED AUTHOR AUTHOR'S ORGANIZ ATION 07/24/2024 [facility] DATE CREATED AUTHOR AUTHOR'S ORGANIZ ATION 02/25/2025 [facility] tem [facility] Source Comments (unrecognize d section and content) In the event this informatio n is protected by the Federal Confidentiality of Alcohol and Drug Abuse Patient Records regulations: The Federal rules restrict any use of the information to criminally investigate or prosecute any alcohol or drug abuse patient.[facility] the event this information is protected by the Federal Confidentiality of Alcohol and Drug Abuse Patient Records regulations: The Federal rules restrict any use of the information to criminally investigate or prosecute any alcohol or drug abuse patient.[facility] the event this information is protected by the Federal Confidentiality of Alcohol and Drug Abuse Patient Records regulations: The Federal rules restrict any use of the information to criminally investigate or prosecute any alcohol or drug abuse patient.[facility] the event this information is protected by the Federal Confidentiality of Alcohol and Drug Abuse Patient Records regulations: The Federal rules restrict any use of the information to criminally investigate or prosecute any alcohol or drug abuse patient.[facility] the event this information is protected by the Federal Confidentiality of Alcohol and Drug Abuse Patient Records regulations: The Federal rules restrict any use of the information to criminally investigate or prosecute any alcohol or drug abuse patient.[facility] the event this information is protected by the Federal Confidentiality of Alcohol and Drug Abuse Patient Records regulations: The Federal rules restrict any use of the information to criminally investigate or prosecute any alcohol or drug abuse patient.[facility] Hospital[facility] the event this information is protected by the Federal Confidentiality of Alcohol and Drug Abuse Patient Records regulations: The Federal rules restrict any use of the information to criminally investigate or prosecute any alcohol or drug abuse patient.[facility] the event this information is protected by the Federal Confidentiality of Alcohol and Drug Abuse Patient Records regulations: The Federal rules restrict any use of the information to criminally investigate or prosecute any alcohol or drug abuse patient.[facility] the event this information is protected by the Federal Confidentiality of Alcohol and Drug Abuse Patient Records regulations: The Federal rules restrict any use of the information to criminally investigate or prosecute any alcohol or drug abuse patient.[facility] Reason for Visit (unrecogniz ed section and content) Reason Comments Refill Request Reason Comments Medication Question Reason Onset Date Comments Refill Request 03/27/2022 Reason Comments Follow-up 6 month med check Reason Comments Flank Pain Urinary Frequency Burning, Reason Onset Date Comments Flank Pain 01/17/2023 Reason Onset Date Comments Medication Problem 01/17/2024 Reason Comments Follow-up Med check Reason Onset Date Comments Med Refill 05/01/2024 Reason Comments Well Woman Reason Comments Orders Reason Comments Results Reason Onset Date Comments Med Refill 10/13/2022 Reason Comments Follow-up Med Check Migraine Tingling Tingling in left ear Flu Vaccine Patient has declined the flu vaccine Reason Onset Date Comments Human Bite 10/02/2024 Reason Onset Date Comments Med Refill 11/27/2024 Reason Onset Date Comments Med Refill 02/23/2025 Care Teams (unrecognized sec tion and content) Management Lecturer Relationship Specialty Start Date End Date Andres Crockett PCP - General 03/21/10 Management Lecturer Relationship Specialty Start Date End Date Andres Crockett PCP - General 03/21/10 Management Lecturer Relationship Specialty Start Date End Date Andres Crockett PCP - General 03/21/10 Management Lecturer Relationship Specialty Start Date End Date Andres Crockett, DO [address] [place] [address] PCP - General 07/04/16 Management Lecturer Relationship Specialty Start Date End Date Andres Crockett DO [address] [place] [address] PCP - General 07/04/16 Management Lecturer Relationship Specialty Start Date End Date Andres Crockett, DO [address] [place] [address] PCP - General 07/04/16 Management Lecturer Relationship Specialty Start Date End Date Andres Crockett, DO [address] [place] [id number] PCP - General 07/04/16 Management Lecturer Relationship Specialty Start Date End Date Andres Crockett, DO [address] [place] [address] PCP - General 07/04/16 Management Lecturer Relationship Specialty Start Date End Date Andres Crockett, DO [address] [place] [address] PCP - General 07/04/16 Management Lecturer Relationship Specialty Start Date End Date Andres Crockett DO PCP - General 03/21/10 Management Lecturer Relationship Specialty Start Date End Date Andres Crockett DO PCP - General 03/21/10 Management Lecturer Relationship Specialty Start Date End Date Andres Crockett DO PCP - General 03/21/10 Management Lecturer Relationship Specialty Start Date End Date Andres Crockett DO PCP - General 03/21/10 Management Lecturer Relationship Specialty Start Date End Date Andres Crockett DO PCP - General 03/21/10 Management Lecturer Relationship Specialty Start Date End Date Andres Crockett, DO [address] [place] [address] PCP - General 07/04/16 Management Lecturer Relationship Specialty Start Date End Date Andres Crockett, DO [address] [place] [address] PCP - General 07/04/16 Management Lecturer Relationship Specialty Start Date End Date Andres Crockett, DO [address] [place] [address] PCP - General 07/04/16 Management Lecturer Relationship Specialty Start Date End Date Andres Crockett, DO [address] [place] [address] PCP - General 07/04/16 Management Lecturer Relationship Specialty Start Date End Date Andres Crockett DO [address] [place] [address] [address] [place] [phone] PCP - General 07/04/16 Management Lecturer Relationship Specialty Start Date End Date Andres Crockett DO PCP - General 03/21/10 Management Lecturer Relationship Specialty Start Date End Date Andres Crockett DO [address] [place] [address] PCP - General 07/04/16 Management Lecturer Relationship Specialty Start Date End Date Andres Crockett DO [address] [place] [address] PCP - General 07/04/16 FOR RECORDS PERTAINING TO PATIENTS WHO ARE OR HAVE BEEN ENROLLED IN A CHEMICAL DEPENDENCY/SUBSTANCEABUSE PROGRAM, SOME INFORMATION MAY BE OMITTED. This clinical summary was aggregated from multiple sources. Caution should be exercised in using it in the provision of clinical care. This summary normalizes information from multiple sources, and as a consequence, information in this document may materially change the coding, format and clinical context of patient data. In addition, data may be omitted in some cases. CLINICAL DECISIONS SHOULD BE BASED ON THE PRIMARY CLINICAL RECORDS. [facility]. provides no warranty or guarantee of the accuracy or completeness of information in this document.
[2025-05-31 20:39] VITALS: BP 127/91; PULSE 84; RESP 12; O2SAT 100
--- NOTE | 2025-05-31 20:40 | EKG12_ITS ---
Test Reason : DIZZINESS Blood Pressure : */* mmHG Vent. Rate : 78 BPM Atrial Rate : 78 BPM P-R Int : 160 ms QRS Dur : 76 ms QT Int : 400 ms P-R-T Axes : 61 25 70 degrees QTcB Int : 456 ms Normal sinus rhythm Normal ECG Confirmed by IRAJ PARRISH, EVELYNE ([id number]), web editor YASMINE KIRK ([id number]) on 06/01/2025 10:40:47 AM Referred By: Confirmed By: EVELYNE GALO MD
[2025-05-31 20:41] VITALS: BP 121/87; BP 127/91; BP 128/93; PULSE 82; PULSE 91; PULSE 92
--- NOTE | 2025-05-31 20:42 | EX.ED.DYSGE1 ---
HPI History of Present Illness Chief Complaint: Dizziness Informant: patient Onset/Context/Timing Onset: Today and Yesterday Context: Gradual Onset Timing: Continuous Current Severity: Mild Maximum Severity: Mild Narrative Narrative: 34-year-old female no significant past medical history. Says she feels dizziness with movement. Not room spinning. No headache. She had a prior MRI that was negative. Denies any head trauma. No fever. She says her whole body feels heavy. Prior history without diagnosis. Prior similar symptoms: Yes Recent Illness/Hospitalization: No PFSH PFSH Medical History Wears glasses Migraine headache Seizures Non-smoker History of stress test Gestational hypertension Oligohydramnios Anxiety depression Gestational HTN Depression Diarrhea Tarry stool Hematochezia Abdominal pain in female Migraines Home Medications ?Medication ?Instructions ?Recorded ?Last Taken ?Type sertraline 100 mg tablet (Zoloft) 100 mg PO DAILY 06/24/21 06/24/21 21:00 History amitriptyline 25 mg tablet 25 mg PO QHS 05/31/25 Unknown History cvtikyjntl-rtwvzhjodnfzj-plkasdgc 1 tab PO Q6H PRN PRN migraine 05/31/25 Unknown History 50 mg-325 mg-40 mg tablet headache Allergy/AdvReac Type Severity Reaction Status Date / Time bupropion (From Wellbutrin) AdvReac Other Verified 05/31/25 19:40 Family History Mother No problems noted. Surgical History Delivery by section History of surgery Previous section Social History Smoking Status: Never smoker alcohol intake: never ROS ROS ED ROS Narrative Chronic diarrhea. Constitutional Constitutional ED: Denies chills or fever(s) Eyes Eyes: Denies blurry vision ENT ENT ED: Denies ear pain Cardiovascular Cardiovascular: Denies chest pain Respiratory/Chest Respiratory/Chest: Denies cough or dyspnea Gastrointestinal Gastrointestinal: Denies abdominal pain Genitourinary Genitourinary ED: Denies dysuria or hematuria Musculoskeletal Musculoskeletal: Denies arthralgias Integumentary Denies abscess Neurologic Neurologic: Denies headache(s) Psychiatric Psychiatric: Denies anxiety Endocrine Endocrinology: Denies cold intolerance Hematologic/Lymphatic Hematologic/Lymphatic: Reports none Allergic/Immunologic Allergic/Immunologic ED: Denies mouth swelling, tongue swelling or urticaria EXAM Physical Exam Narrative Exam Narrative: Well-appearing 34-year-old female. Vital signs are stable afebrile. Pulse ox 99% on room air no signs hypoxia. Accompanied by her mom. No acute distress. H EENT exam pupils round react light. Moist mutes membranes. Neck nontender no JVD. No lymphadenopathy. Lungs clear to auscultation bilaterally. Heart regular rhythm no murmur. Chest wall and ribs are nontender. Abdomen soft nontender. Moving all 4 extremities. 5 out of 5 bicycle courier strength. Dorsi plantarflexion intact. Nontender no edema. Neurologically she is awake alert. Answering questions following commands. Benign exam. Const Vital Signs: 05/31/25 19:38 05/31/25 20:39 05/31/25 20:41 Temperature 98.4 F Temperature Source Oral Pulse Rate 88 84 Pulse Rate [Lying] 91 Pulse Rate [Sitting (for 1 minute prior to obtaining)] 92 Pulse Rate [Standing (for 1 minute prior to obtaining)] 82 Respiratory Rate 18 12 Blood Pressure 112/88 H 127/91 H Blood Pressure [Lying] 127/91 H Blood Pressure [Sitting (for 1 minute prior to obtaining)] 128/93 H Blood Pressure [Standing (for 1 minute prior to obtaining)] 121/87 H Blood Pressure Mean 96 103 Blood Pressure Mean [Lying] 103 Blood Pressure Mean [Sitting (for 1 minute prior to obtaining)] 104 Blood Pressure Mean [Standing (for 1 minute prior to obtaining)] 98 Pulse Ox 99 100 Oxygen Delivery Method Room Air 05/31/25 21:20 05/31/25 22:15 Temperature Temperature Source Pulse Rate 84 80 Pulse Rate [Lying] Pulse Rate [Sitting (for 1 minute prior to obtaining)] Pulse Rate [Standing (for 1 minute prior to obtaining)] Respiratory Rate 15 19 H Blood Pressure 104/75 107/72 Blood Pressure [Lying] Blood Pressure [Sitting (for 1 minute prior to obtaining)] Blood Pressure [Standing (for 1 minute prior to obtaining)] Blood Pressure Mean 84 83 Blood Pressure Mean [Lying] Blood Pressure Mean [Sitting (for 1 minute prior to obtaining)] Blood Pressure Mean [Standing (for 1 minute prior to obtaining)] Pulse Ox 99 99 Oxygen Delivery Method MDM MDM MDM Narrative Medical decision making narrative: 34-year-old generalized weakness. Exam benign. Screening labs to be obtained. I do not think this is neurologic. She has had a prior MRI. I do not think it is cardiac. Possibly secondary to anemia or electrolyte abnormalities but doubtful. No signs of any infection. Repeat exam at 10:37 PM patient doing well. Standing up walked in the room. Exam is benign. I did look at her ears TMs are normal there is no wax impaction. There is no signs of vertigo. Her neurologic exam remains normal. Lungs are clear. Heart regular rhythm 70-80. Abdomen is benign. She is moving all 4 extremities. I discussed her test results with her and her mom. They are comfortable with her being discharged home outpatient follow-up. Dizziness uncertain etiology. History & Record Review Discussion w/independent historian: Patient and Family Additional record(s) reviewed:: Prior outpatient record and Prior ED visit Lab Data Attestation: I reviewed the patient's lab results. Lab results narrative: CBC unremarkable. White count 9. H&H 13 and 40. Platelets 47. Electrolytes show gap 13. BUN and creatinine of 14 and 0.6. Glucose 96. Liver enzymes unremarkable AST slightly elevated at 33. Serum test negative. Orthostatic vital signs were negative. Labs: Laboratory Results - last 24 hr 05/31/25 20:44 WBC 9.7 RBC 4.46 Hgb 13.8 Hct 40.9 MCV 91.7 MCH 30.9 MCHC 33.7 RDW Std Deviation 41.5 RDW Coeff of Britni 12.5 Plt Count 487 H MPV 8.3 Immature Gran % (Auto) 0.200 Neut % (Auto) 47.0 Lymph % (Auto) 42.4 H [place] % (Auto) 7.7 Eos % (Auto) 2.3 Baso % (Auto) 0.4 Absolute Neuts (auto) 4.6 Absolute Lymphs (auto) 4.12 Nucleated RBC % 0 Sodium 139 Potassium 3.9 Chloride 104 Carbon Dioxide 21.2 Anion Gap 13 BUN 14 Creatinine 0.62 L Estim Creat Clear Calc 117.22 Est GFR (MDRD) Non-Af 121 BUN/Creatinine Ratio 21.6 H Glucose 96 Calcium 9.8 Total Bilirubin 0.30 AST 33 H ALT 29 Alkaline Phosphatase 78 Total Protein 7.7 Albumin 4.6 Globulin 3.2 Albumin/Globulin Ratio 1.4 Serum , Qual NEGATIVE Rhythm Strip Rhythm Strip: Sinus Rhythm Rate: 78 Ectopy: None EKG Initial EKG: Attestation: I personally reviewed and interpreted this EKG as follows: Interpretation: Sinus Rhythm and No Acute Injury Pattern Comments: Normal sinus rhythm rate of 78 no acute signs of [place] or ischemia. No dysrhythmia. Discharge Plan Triage Chief Complaint: Dizziness ED Provider: Chase Ferro Dx/Rx/DC Orders Clinical Impression: Dizziness Instructions: ED Dizziness, Uncertain Cause Prescriptions: No Action sertraline [Zoloft] 100 mg Tablet 100 mg PO DAILY uddstgmflb-[id number] 50-325-40 mg tablet 1 tab PO Q6H PRN PRN (Reason: migraine headache) amitriptyline 25 mg tablet 25 mg PO QHS Primary Care Provider: Andres Crockett Referrals: Andres Crockett DO [Primary Care Provider, Family Practice] - 3-5 Days Activity Restrictions/Additional Instructions: Plenty fluids and rest. All your test tonight look good. Nothing specific on your physical exam. If you are not improving follow-up your primary care physician for further evaluation. If you feel a lot worse return to the emergency department. Print Language: Palauan Disposition Disposition: Home, Self Care
[2025-05-31] MEDS: 0.9% Normal Saline (1000mL) 1,000 ML 999 ML IV (20:43)
[2025-05-31 20:49] LABS: Hematocrit 40.9 % (37-47); Hemoglobin 13.8 g/dL (12.0-15.0); Immature Granulocytes Count 0.020 X10^3/uL (0.0-0.0); Mean Corp Hgb Conc 33.7 g/dL (32-36); Mean Corpuscular Volume 91.7 fL (81-99); Mean Platelet Vol. 8.3 fl (6.2-12.0); NRBC Flagged by Analyzer 0 % (0-5); Platelet Count 487 K/mm3 (150-450); RBC Distribution Width CV 12.5 % (11.6-14.6); RBC Distribution Width SD 41.5 fl (35.1-43.9); Red Blood Count 4.46 M/mm3 (4.2-5.4); White Blood Count 9.7 K/mm3 (4.4-11.0)
[2025-05-31 21:01] LABS: Internal QC Validated? YES +Cl - CLEAR BKGD; Pregnancy, Serum, hCG Quali. NEGATIVE Negative; Record Kit Lot#, Serum Preg. 980607
[2025-05-31 21:20] VITALS: BP 104/75; PULSE 84; RESP 15; O2SAT 99
[2025-05-31 21:36] LABS: AST(SGOT) 33 U/L (<=31); Alanine Aminotransfer ALT/SGPT 29 U/L (<=34); Albumin, Serum 4.6 g/dL (3.5-5.0); Alkaline Phosphatase 78 U/L (35-104); Anion Gap 13 (5-15); BUN 14 mg/dL (4-19); BUN/Creat Ratio 21.6 RATIO (10-20); Calcium,Total 9.8 mg/dL (7.6-11.0); Carbon Dioxide 21.2 mmol/L (21.0-32.0); Chloride 104 mmol/L (98-108); Estimated Creatinine Clearance 117.22 ml/min (50-250); Globulin 3.2 g/dL (2.2-4.2); Glucose 96 mg/dL (70-99); Potassium 3.9 mmol/L (3.3-5.1)
[2025-05-31 22:15] VITALS: BP 107/72; PULSE 80; RESP 19; O2SAT 99
[2025-05-31 22:45] VITALS: BP 107/72; PULSE 80; RESP 19; TEMP 36.9; O2SAT 99
== END 2025-05-31 22:53 | disposition home or self-care (01) ==
PROVIDERS: Emergency Provider Emergency Medicine; PCP Family Medicine; Visit Provider Emergency Medicine
DX: R42 Dizziness and giddiness (principal); F32.A Depression, unspecified; Z79.899 Other long term (current) drug therapy; F41.9 Anxiety disorder, unspecified
CPT/HCPCS: 80053; 84703; 85025; 93005; 96360; 96361; 99285; A4216